=== PATIENT | female | born 1940 | race Caucasian/White ===

== ENCOUNTER → 2024-11-12 | Outpatient (CLI) | payer MEDICARE, SELFPAY ==
[2024-11-12 09:03] LABS: Collection Type, Urine Clean Catch
[2024-11-12 09:43] LABS: Alanine Aminotransferase 13 U/L (10-49); Albumin, Serum 4.3 gm/dL (3.4-4.8); Albumin/Globulin Ratio 1.5 (1.2-2.2); Alkaline Phosphatase 109 U/L (46-116); Anion Gap 5 (7-16); Aspartate Amino Transferase 26 U/L (0-34); BUN/Creatinine Ratio 18 Ratio (12-20); Bilirubin,Total 0.8 mg/dL (0.3-1.2); Blood Urea Nitrogen 11 mg/dL (9-23); Calcium 9.8 mg/dL (8.3-10.6); Calcium (Corrected) 9.8 mg/dL (8.5-10.1); Carbon Dioxide 27.1 mMol/L (20.0-31.0); Cardiac Risk Estimate 2.1 RATIO (3.7-5.6); Chloride 101 mMol/L (98-107); Cholesterol 105 mg/dL (132-200); Creatinine (Component) 0.6 mg/dL (0.6-1.3); Globulin 2.8 gm/dL (2.3-3.5); Glucose 131 mg/dL (74-106); HDL Cholesterol 49 mg/dL (40-60); LDL Cholesterol,Calculated 38 mg/dL (0-130); Osmolality,Calculated 267 (275-295); Potassium 4.6 mMol/L (3.4-5.1); Sodium 133 mMol/L (136-145); Total Protein 7.1 gm/dL (5.7-8.2); Triglycerides 88 mg/dL (30-150); eGFR > 60 See Note
[2024-11-12 10:35] LABS: Bilirubin,Urine Negative (Negative); Blood,Urine Negative (Negative); Clarity,Urine Clear (Clear/Hazy); Color,Urine Lt-Yellow (Lt Yel-Yel); Glucose, Urine Negative (Negative); Ketones,Urine Negative (Negative); Nitrite,Urine Negative (Negative); PH,Urine 6.5 (5.0-7.0); Protein,Urine Negative (Neg - Trace); RBC,Urine 1 /hpf (0-3); Specific Gravity,Urine 1.011 (1.001-1.035); Squamous Epithelial Cell,Urine 6 /hpf (0-5); Urobilinogen,Urine Negative mg/dL (0.0-1.0); WBC,Urine 1 /hpf (0-5)
[2024-11-12 11:03] LABS: Leukocyte Esterase,Urine Negative (Negative)
== END | disposition home or self-care (01) ==
LOC: COPL 08:21
PROVIDERS: PCP Internal Medicine; Referring Provider Internal Medicine; Visit Provider Internal Medicine
DX: E78.5 Hyperlipidemia, unspecified (principal); I10 Essential (primary) hypertension
CPT/HCPCS: 36415; 80053; 80061; 81001

== ENCOUNTER → 2025-04-02 | Outpatient (CLI) | payer MEDICARE, SELFPAY ==
[2025-04-02 09:28] LABS: Collection Type, Urine Clean Catch
[2025-04-02 10:13] LABS: Basophils # (Auto) 0.1 Thou/mm3 (0.0-0.2); Basophils % (Auto) 1 % (0-2.5); Eosinophils # (Auto) 0.2 Thou/mm3 (0.0-0.5); Eosinophils % (Auto) 2 % (0-10); Hematocrit 39.4 % (36.0-46.0); Hemoglobin 13.2 g/dL (12.0-16.0); Immature Granulocytes Auto 0.05 Thou/mm3 (0.00-0.00); Lymphocytes # (Auto) 2.1 Thou/mm3 (1.0-4.8); Lymphocytes % (Auto) 25 % (10-50); Mean Corpuscular HGB Conc 33.5 g/dl (31.0-37.0); Mean Corpuscular Hemoglobin 31.5 pg (25.0-35.0); Mean Corpuscular Volume 94 fL (80-100); Monocytes # (Auto) 0.7 Thou/mm3 (0.0-0.8); Monocytes % (Auto) 9 % (0-12); Neutrophils # (Auto) 5.2 Thou/mm3 (1.8-7.7); Neutrophils % (Auto) 62 % (37-80); Nucleated Red Blood Cell # 0.00 Thou/mm3 (0.00-0.00); Nucleated Red Blood Cell % 0 /100 WBC (0); Platelet Count 287 Thou/mm3 (140-440); RDW Standard Deviation 47.2 fL (36.4-46.3); Red Blood Count 4.19 Miln/mm3 (4.00-5.20); White Blood Count 8.3 Thou/mm3 (3.6-11.0)
[2025-04-02 10:17] LABS: Bilirubin,Urine Negative (Negative); Blood,Urine Negative (Negative); Clarity,Urine Clear (Clear/Hazy); Color,Urine Lt-Yellow (Lt Yel-Yel); Glucose, Urine Negative (Negative); Hyaline Casts,Urine < 1 /hpf (0-1); Ketones,Urine Trace (Negative); Leukocyte Esterase,Urine Positive (Negative); Nitrite,Urine Negative (Negative); PH,Urine 6.5 (5.0-7.0); Protein,Urine Negative (Neg - Trace); RBC,Urine 2 /hpf (0-3); Specific Gravity,Urine 1.010 (1.001-1.035); Squamous Epithelial Cell,Urine 9 /hpf (0-5); Urobilinogen,Urine Negative mg/dL (0.0-1.0); WBC,Urine 2 /hpf (0-5)
[2025-04-02 10:26] LABS: Alanine Aminotransferase 13 U/L (10-49); Albumin, Serum 4.3 gm/dL (3.4-4.8); Albumin/Globulin Ratio 1.6 (1.2-2.2); Alkaline Phosphatase 102 U/L (46-116); Anion Gap 11 (7-16); Aspartate Amino Transferase 24 U/L (0-34); BUN/Creatinine Ratio 13 Ratio (12-20); Bilirubin,Total 0.8 mg/dL (0.3-1.2); Blood Urea Nitrogen 8 mg/dL (9-23); Calcium 10.2 mg/dL (8.3-10.6); Calcium (Corrected) 10.2 mg/dL (8.5-10.1); Carbon Dioxide 24.0 mMol/L (20.0-31.0); Cardiac Risk Estimate 2.0 RATIO (3.7-5.6); Chloride 97 mMol/L (98-107); Cholesterol 105 mg/dL (132-200); Creatinine (Component) 0.6 mg/dL (0.6-1.3); Globulin 2.7 gm/dL (2.3-3.5); Glucose 105 mg/dL (74-106); HDL Cholesterol 53 mg/dL (40-60); LDL Cholesterol,Calculated 37 mg/dL (0-130); Osmolality,Calculated 262 (275-295); Potassium 5.2 mMol/L (3.4-5.1); Sodium 132 mMol/L (136-145); Total Protein 7.0 gm/dL (5.7-8.2); Triglycerides 74 mg/dL (30-150); eGFR > 60 See Note
== END | disposition home or self-care (01) ==
LOC: COPL 09:00
PROVIDERS: PCP Internal Medicine; Referring Provider Internal Medicine; Visit Provider Internal Medicine
DX: I10 Essential (primary) hypertension (principal); E78.5 Hyperlipidemia, unspecified
CPT/HCPCS: 36415; 80053; 80061; 81001; 85025

== ENCOUNTER 2025-05-07 05:55 | Inpatient (IN) | payer MEDICARE, SELFPAY ==
[2025-05-07] VITALS (33 sets, daily range): BP systolic 146–217; BP diastolic 44–119; PULSE 32–68; RESP 10–99; TEMP 36.3–36.6; O2SAT 93–100; BMI 24.2
--- NOTE | 2025-05-07 06:05 | EKG_ITS ---
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
--- NOTE | 2025-05-07 06:33 | XR_ITS ---
EXAMINATION: AP chest single view TECHNIQUE: AP portable semiupright chest single view Date and time: May 07, 2025, 0649 hours, comparison August 24, 2018 INDICATIONS: Intermittent chest pain today. FINDINGS: Early heart failure. Mild enlargement cardiac contour, prominent vascular congestion with septal edema at the lung bases Severe osteopenia IMPRESSION: Early CHF
--- NOTE | 2025-05-07 06:33 | PD.EDRME ---
Rapid Medical Screening Exam E Arrival date/time: 05/07/25 05:55 84-year-old female with no known medical history presents to the emergency room with a chief complaint of intermittent chest tightness and bilateral lower extremity swelling I have greeted and performed a focused initial assessment of this patient. A comprehensive ED assessment and evaluation of the patient, analysis of all test results, and completion of the medical decision making process will be conducted by additional ED providers. Chief Complaint: Chest Pain Time Seen by Provider: 05/07/25 06:12 Vital signs: Vital Signs Temperature 97.5 F 05/07/25 06:21 Pulse Rate 37 L 05/07/25 06:21 Respiratory Rate 15 05/07/25 06:21 Blood Pressure 197/52 H 05/07/25 06:21 Pulse Oximetry (%) 98 05/07/25 06:21 Oxygen Delivery Method Room Air 05/07/25 06:21 Vital signs reviewed by provider: Yes
--- NOTE | 2025-05-07 07:08 | PD.EDADULT ---
ED General RME/HPI General Chief complaint: Chest Pain Stated complaint: DIZZY, WEAK, CHEST PAIN Time Seen by Provider: 05/07/25 06:12 Arrival date/time: 05/07/25 05:55 RME / HPI RME / HPI narrative: 05/07/25 05:55 Rosi is a 84 y/o female with PMHx of HTN, colon cancer (in remission, s/p partial colectomy ~12 years ago) who comes in for an evaluation of worsening dizziness and weakness for about a week. Patient reports she has never had the symptoms before and felt like she was dizzy and weak. She said she does not measure her heart rate at home, however she noticed that her heart rate felt a bit slow when she felt her pulse in her neck. She says she takes atenolol at home for blood pressure, however has not taken it for about a week as she said she felt like her symptoms would worsen. She also stopped taking her other blood pressure medicines including lisinopril, however she is on a couple more but she does not remember the names of them. She has never seen a clinical dietitian before in her life as she says she has never had a reason to. Her primary care doctor is Dr. Rizvi. She says she takes a multivitamin mostly every day. She denies any history of smoking, oral IV drug use, and does not drink. Denies any family history of heart disease including CAD or arrhythmias. She lives alone currently. Denies any recent travel. Denies any chest pain, shortness of breath, headache, however says she had a little bit of nausea earlier but that has resolved now. She says she has seen a vascular surgeon before in the past, however this was for her varicose veins but she never got operated on. She also had a cholecystectomy in the past. No other complaints at this time. Related Data Previous Rx's ?Medication ?Instructions ?Recorded acetaminophen 500 mg tablet 500 mg PO Q6H PRN pain #30 tabs 04/02/20 (Tylenol Extra Strength) cephalexin 500 mg capsule (Keflex) 500 mg PO QID #40 caps 04/02/20 Allergies Allergy/AdvReac Type Severity Reaction Status Date / Time No Known Allergies Allergy Verified 04/02/20 10:34 Review of Systems Review of Systems Narrative Review of Systems: 12 point ROS reviewed and is otherwise negative unless stated directly in the HPI ED Exam Narrative Physical exam: General: AAOx3, NAD, wearing glasses, pleasant HEENT: Moist mucous membranes, conjunctiva clear, EOMI, PERRLA, Cardiovascular: Systolic ejection murmur apprecaited in [place] radiating to carotids, S1, S2, radial pulses +2 bilat, bradycardic Pulmonary: CTAB bilat no cough, no wheezing GI: No tenderness to light or deep palpitation, no guarding, rigidity, rebound tenderness or distension Extremities: +2 pitting edema in lower extremities bilaterally, dorsalis pedis pulses +2 bilaterally Neuro: AAOx3, no focal motor or sensory deficits in the UE or LE bilat Psych: Good judgement, thought and behavior Course Quality Measures none Orders Category Date Time Status Admit to Inpatient Status Routine Admission 05/07/25 09:32 Active Patient Condition Routine Admission 05/07/25 09:31 Ordered Bedside Blood Glucose Q2H Care 05/07/25 08:25 Active EKG (ED ONLY) *Do not use* NOW Care 05/07/25 06:05 Completed Insert IV NOW Care 05/07/25 08:51 Active NPO NOW Care 05/07/25 07:10 Active Notify provider NEEDED Care 05/07/25 09:31 Active Strict Intake and Output Q1H Care 05/07/25 09:45 Ordered Strict Intake and Output Q1H Care 05/07/25 10:45 Ordered Strict Intake and Output Q1H Care 05/07/25 11:45 Ordered Strict Intake and Output Q1H Care 05/07/25 12:45 Ordered Strict Intake and Output Q1H Care 05/07/25 13:45 Ordered Strict Intake and Output Q1H Care 05/07/25 14:45 Ordered Strict Intake and Output Q1H Care 05/07/25 15:45 Ordered Strict Intake and Output Q1H Care 05/07/25 16:45 Ordered Strict Intake and Output Q1H Care 05/07/25 17:45 Ordered Strict Intake and Output Q1H Care 05/07/25 18:45 Ordered Strict Intake and Output Q1H Care 05/07/25 19:45 Ordered Strict Intake and Output Q1H Care 05/07/25 20:45 Ordered Strict Intake and Output Q1H Care 05/07/25 21:45 Ordered Strict Intake and Output Q1H Care 05/07/25 22:45 Ordered Strict Intake and Output Q1H Care 05/07/25 23:45 Ordered Strict Intake and Output Q1H Care 05/08/25 00:45 Ordered Strict Intake and Output Q1H Care 05/08/25 01:45 Ordered Strict Intake and Output Q1H Care 05/08/25 02:45 Ordered Strict Intake and Output Q1H Care 05/08/25 03:45 Ordered Strict Intake and Output Q1H Care 05/08/25 04:45 Ordered Strict Intake and Output Q1H Care 05/08/25 05:45 Ordered Strict Intake and Output Q1H Care 05/08/25 06:45 Ordered Strict Intake and Output Q1H Care 05/08/25 07:45 Ordered Strict Intake and Output Q1H Care 05/08/25 08:45 Ordered Consult to Cardiology Stat Cons 05/07/25 07:07 Ordered Consult to Box Inspector Stat Cons 05/07/25 08:56 Ordered Diet NPO (NOW) Diet 05/07/25 07:10 Active CA echo doppler complete Stat Exams 05/07/25 07:22 Taken EKG (ED Only) Stat Exams 05/07/25 06:05 Draft XR chest 1V portable Stat Exams 05/07/25 06:33 Completed B-Type Natriuretic Peptide Stat Lab 05/07/25 07:40 Completed CBC AM DRAW Lab 05/08/25 05:00 Ordered CBC AM DRAW Lab 05/09/25 05:00 Ordered CBC AM DRAW Lab 05/10/25 05:00 Ordered CBC AM DRAW Lab 05/11/25 05:00 Ordered CBC AM DRAW Lab 05/12/25 05:00 Ordered CBC AM DRAW Lab 05/13/25 05:00 Ordered CBC Stat Lab 05/07/25 07:40 Completed Comprehensive Metabolic Panel AM DRAW Lab 05/08/25 05:00 Ordered Comprehensive Metabolic Panel AM DRAW Lab 05/09/25 05:00 Ordered Comprehensive Metabolic Panel AM DRAW Lab 05/10/25 05:00 Ordered Comprehensive Metabolic Panel AM DRAW Lab 05/11/25 05:00 Ordered Comprehensive Metabolic Panel AM DRAW Lab 05/12/25 05:00 Ordered Comprehensive Metabolic Panel AM DRAW Lab 05/13/25 05:00 Ordered Comprehensive Metabolic Panel Stat Lab 05/07/25 07:40 Completed Lipid Panel Stat Lab 05/07/25 07:40 Completed Magnesium AM DRAW Lab 05/08/25 05:00 Ordered Magnesium AM DRAW Lab 05/09/25 05:00 Ordered Magnesium AM DRAW Lab 05/10/25 05:00 Ordered Magnesium AM DRAW Lab 05/11/25 05:00 Ordered Magnesium AM DRAW Lab 05/12/25 05:00 Ordered Magnesium AM DRAW Lab 05/13/25 05:00 Ordered Magnesium Stat Lab 05/07/25 07:40 Completed Partial Thromboplastin Time Stat Lab 05/07/25 07:40 Completed Partial Thromboplastin Time Stat Lab 05/07/25 10:00 Completed Phosphorous AM DRAW Lab 05/08/25 05:00 Ordered Phosphorous AM DRAW Lab 05/09/25 05:00 Ordered Phosphorous AM DRAW Lab 05/10/25 05:00 Ordered Phosphorous AM DRAW Lab 05/11/25 05:00 Ordered Phosphorous AM DRAW Lab 05/12/25 05:00 Ordered Phosphorous AM DRAW Lab 05/13/25 05:00 Ordered Prothrombin Time with INR Stat Lab 05/07/25 07:40 Completed Prothrombin Time with INR Stat Lab 05/07/25 10:00 Completed Renal Function Panel Stat Lab 05/07/25 14:00 Ordered Thyroid Stimulating Hormone Stat Lab 05/07/25 07:40 Completed Troponin I Q6H Lab 05/07/25 10:00 Completed Troponin I Q6H Lab 05/07/25 15:45 Ordered Troponin I Q6H Lab 05/07/25 21:45 Ordered Troponin I Stat Lab 05/07/25 07:40 Completed Troponin I Stat Lab 05/07/25 14:00 Ordered Urinalysis Routine Lab 05/07/25 09:35 Ordered Urinalysis, C/S if Indicated Stat Lab 05/07/25 06:33 Ordered VBG [Venous Blood Gas] Stat Lab 05/07/25 07:40 Completed ALBUTEROL RT 3ml [Proventil Rt 3ml] Med 05/07/25 08:37 Discontinued 2.5 mg INH X1 ONE Acetaminophen Tab [Tylenol Tab] Med 05/07/25 09:31 Active 650 mg PO Q6H PRN Acetaminophen Tab [Tylenol Tab] Med 05/07/25 09:31 Active 650 mg PO Q6H PRN Calcium Gluc/Ns 1000MG Ivpb [Calcium Gluc/Ns 1000mg Med 05/07/25 08:28 Discontinued Ivpb] 1,000 mg in 50 ml IV X1 Calcium Gluconate 10% Inj Med 05/07/25 08:40 Discontinued 1 gm IV X1 ONE Dextrose 50% Syr [D50w Syringe Abboject] Med 05/07/25 08:24 Discontinued 50 ml IVP X1 ONE Heparin Inj Med 05/07/25 14:00 Active 5,000 unit SC Q8HR Insulin Regular Med 05/07/25 08:24 Discontinued 5 unit IV X1 ONE Ondansetron Inj [Zofran Inj] Med 05/07/25 09:31 Active 4 mg IVP Q6H PRN Ondansetron Inj [Zofran Inj] Med 05/07/25 09:00 Discontinued 4 mg IVP X1 ONE Senna [Senokot] Med 05/07/25 09:31 Active 1 tab PO QDAY PRN hydrALAZINE INJ [Apresoline Inj] Med 05/07/25 07:07 Discontinued 5 mg IVP X1 ONE hydrALAZINE INJ [Apresoline Inj] Med 05/07/25 07:56 Discontinued 5 mg IVP X1 ONE Code Status Routine Oth 05/07/25 09:31 Ordered Oxygen Delivery PRN RT 05/07/25 09:31 Active Vital Signs Vital signs: Vital Signs Temperature 97.5 F 05/07/25 06:21 Pulse Rate 37 L 05/07/25 06:21 Respiratory Rate 15 05/07/25 06:21 Blood Pressure 197/52 H 05/07/25 06:21 Pulse Oximetry (%) 98 05/07/25 06:21 Oxygen Delivery Method Room Air 05/07/25 06:21 Discharge Plan Plan Patient Disposition: Admit Acute Care w/in Hospital Problem List Clinical Impression: Complete heart block MD Attestation MD Attestation I, Dr. Gonzalez, saw this patient did history and physical exam, discussed the initial history and physical exam, workup and management to include consulting physicians with the resident. Reviewed his note and agree. MDM Narrative [facility] hospital course (for use when minimal MDM required): 0643: Spoke with interventional cardiology, Dr. Diaz, who recommends admission for patient as pt is in complete heart block. Will make patient NPO for pacemaker evaluation. Will give 5 mg Hydralazine IV but will maintain SBP ~160 to allow for adequate perfusion. Pacers pads on at this time. 0722: Reviewed EKG from earlier which shows complete heart block. Consulted Cardiology, will have pads on patient, but not active. Will order hydralazine 5 mg IV for now decrease SBP from 190. 0832: Initiated Insulin 5 units IV with Calcium gluconate inj 1 g with D50 x1 and breathing tx x1. TSH wnl. 0932: Discussed case with cloth winder machine operator, Dr. Alonso, who agrees patient for admission. EKG Interpretation EKG #1: EKG Interpretation: Heart rate 36, QTc 515, complete heart block, no ST changes EKG #2: EKG Interpretation: Heart rate 34, QT 512, complete heart block, no ST changes Medication Administration(s) Medication Administration History Acetaminophen (Acetaminophen 325 Mg Tablet) 650 mg PO Q6H PRN PRN Reason: Fever >100.4 or pain 1-3 Stop: 06/06/25 09:30 Acetaminophen (Acetaminophen 325 Mg Tablet) 650 mg PO Q6H PRN PRN Reason: PAIN SCALE 1-3 (mild Stop: 06/06/25 09:30 Heparin Sodium (Porcine) (Heparin Sod Inj 5000 Unit/Ml Vial) 5,000 unit SC Q8HR HYACINTH Stop: 05/21/25 13:59 Ondansetron HCl (Ondansetron Inj 2 Mg/Ml Inj 2 Ml) 4 mg IVP Q6H PRN; Protocol PRN Reason: NAUSEA OR VOMITING Stop: 06/06/25 09:30 Sennosides (Senna Tablet) 1 tab PO QDAY PRN; Protocol PRN Reason: constipation Stop: 06/06/25 09:30 Discontinued Medications Albuterol (Albuterol Rt 2.5 Mg/3 Ml Nebu) 2.5 mg INH X1 ONE Stop: 05/07/25 08:38 Last Admin: 05/07/25 08:45 Dose: 2.5 mg Documented By: SUSANNAH Calcium Gluconate (Calcium Gluconate 10% Inj 1 Gm/10 Ml Vial) 1 gm IV X1 ONE Stop: 05/07/25 08:41 Last Admin: 05/07/25 08:55 Dose: 1 gm Documented By: BILLIE Dextrose (Dextrose 50%-Water Inj 50 Ml Syringe) 50 ml IVP X1 ONE Stop: 05/07/25 08:25 Last Admin: 05/07/25 08:58 Dose: 50 ml Documented By: BILLIE Hydralazine HCl (Hydralazine Inj 20 Mg/Ml Vial) 5 mg IVP X1 ONE Stop: 05/07/25 07:08 Last Admin: 05/07/25 07:20 Dose: 5 mg Documented By: JEREMIAS Hydralazine HCl (Hydralazine Inj 20 Mg/Ml Vial) 5 mg IVP X1 ONE Stop: 05/07/25 07:57 Last Admin: 05/07/25 09:02 Dose: Not Given Documented By: BILLIE Non-Admin Reason: Cancelled by Provider Hydralazine HCl (Hydralazine Inj 20 Mg/Ml Vial) 5 mg IVP X1 ONE Stop: 05/07/25 10:24 Calcium Gluconate/Sodium Chloride (Calcium Gluc/Ns 1000mg Ivpb) 1,000 mg in 50 mls @ 50 mls/hr IV X1 ONE Stop: 05/07/25 09:27 Last Admin: 05/07/25 08:42 Dose: Not Given Documented By: BILLIE Non-Admin Reason: Cancelled by Provider Insulin Human Regular (Insulin Hum Regular 1 Unit/0.01 Ml (Per Unit)) 5 unit IV X1 ONE Stop: 05/07/25 08:25 Last Admin: 05/07/25 09:01 Dose: 5 unit Documented By: BILLIE Co-signed By: JUANA Ondansetron HCl (Ondansetron Inj 2 Mg/Ml Inj 2 Ml) 4 mg IVP X1 ONE; Protocol Stop: 05/07/25 09:01 Last Admin: 05/07/25 09:06 Dose: 4 mg Documented By: BILLIE Sodium Polystyrene Sulfonate (Sod Polystyrene Sulfon Susp 15 Gm/60 Ml Btl) 60 gm PO X1 ONE Stop: 05/07/25 09:44 Last Admin: 05/07/25 10:10 Dose: 60 gm Documented By: BILLIE Consultations/Discussions re: Management Consult #1: Date/time: 05/07/25 7:26 am Physician, specialty, service, details: 0643: Spoke with interventional cardiology, Dr. Diaz, who recommends admission for patient as pt is in complete heart block. Will make patient NPO for pacemaker evaluation. Will give 5 mg Hydralazine IV but will maintain SBP ~160 to allow for adequate perfusion. Pacers pads on at this time. Consult #2: Date/time: 05/07/25 11:20 am Physician, specialty, service, details: 0932: Discussed case with cloth winder machine operator, Dr. Alonso, who agrees patient for admission. Diagnosis Diagnoses ruled out and/or further discussions: Complete Heart Block
[2025-05-07] MEDS: hydrALAZINE INJ 20 MG/ML VIAL 5 MG IVP (07:20)
[2025-05-07 07:48] LABS: Base Excess, Venous -5 (-3-3); O2 Saturation, Venous 65 % (96-97); PCO2, Venous 29 mmHg (36-56); PO2, Venous 31 mmHg (15-58); pH, Venous 7.42 (7.33-7.66)
[2025-05-07 07:50] LABS: Basophils # (Auto) 0.0 Thou/mm3 (0.0-0.2); Basophils % (Auto) 0 % (0-2.5); Eosinophils # (Auto) 0.1 Thou/mm3 (0.0-0.5); Eosinophils % (Auto) 1 % (0-10); Hematocrit 36.4 % (36.0-46.0); Hemoglobin 12.3 g/dL (12.0-16.0); Immature Granulocytes Auto 0.05 Thou/mm3 (0.00-0.00); Lymphocytes # (Auto) 1.6 Thou/mm3 (1.0-4.8); Lymphocytes % (Auto) 13 % (10-50); Mean Corpuscular HGB Conc 33.8 g/dl (31.0-37.0); Mean Corpuscular Hemoglobin 31.3 pg (25.0-35.0); Mean Corpuscular Volume 93 fL (80-100); Monocytes # (Auto) 0.8 Thou/mm3 (0.0-0.8); Monocytes % (Auto) 6 % (0-12); Neutrophils # (Auto) 9.5 Thou/mm3 (1.8-7.7); Neutrophils % (Auto) 79 % (37-80); Nucleated Red Blood Cell # 0.00 Thou/mm3 (0.00-0.00); Nucleated Red Blood Cell % 0 /100 WBC (0); Platelet Count 279 Thou/mm3 (140-440); RDW Standard Deviation 48.2 fL (36.4-46.3); Red Blood Count 3.93 Miln/mm3 (4.00-5.20); White Blood Count 12.0 Thou/mm3 (3.6-11.0)
[2025-05-07 08:20] LABS: Alanine Aminotransferase 22 U/L (10-49); Albumin, Serum 4.2 gm/dL (3.4-4.8); Albumin/Globulin Ratio 1.5 (1.2-2.2); Alkaline Phosphatase 109 U/L (46-116); Anion Gap 12 (7-16); Aspartate Amino Transferase 28 U/L (0-34); B-Type Natriuretic Peptide 889 pg/mL (0-100); BUN/Creatinine Ratio 13 Ratio (12-20); Bilirubin,Total 0.7 mg/dL (0.3-1.2); Blood Urea Nitrogen 13 mg/dL (9-23); Calcium 10.0 mg/dL (8.3-10.6); Calcium (Corrected) 10.0 mg/dL (8.5-10.1); Carbon Dioxide 20.5 mMol/L (20.0-31.0); Chloride 97 mMol/L (98-107); Creatinine (Component) 1.0 mg/dL (0.6-1.3); Estimated Creatinine Clearance 32.7 mL/min (>60); Globulin 2.8 gm/dL (2.3-3.5); Glucose 138 mg/dL (74-106); Magnesium 2.0 mg/dL (1.6-2.6); Osmolality,Calculated 261 (275-295); Sodium 129 mMol/L (136-145); Total Protein 7.0 gm/dL (5.7-8.2); eGFR 56 See Note
[2025-05-07 08:23] LABS: Potassium 6.1 mMol/L (3.4-5.1); Troponin I 0.051 ng/mL (0.0-0.045)
[2025-05-07] MEDS: ALBUTEROL RT 2.5 MG/3 ML NEBU INH (08:45)
[2025-05-07 08:47] LABS: INR 1.0 (0.9-1.3); Partial Thromboplastin Time 29.3 Seconds (22.0-36.0); Prothrombin Time 10.9 Seconds (9.0-12.2)
--- NOTE | 2025-05-07 08:47 | PD.RESPRO ---
Documentation for date of: 05/07/25 Subjective Subjective Interval history: Patient is an 84 year old female with PMH of diabetes (no meds), HTN, HLD, colon cancer (in remission, s/p partial colectomy 12 years ago) who presents with bradycardia for the past week. Associated with episodes of lightheadedness but denies fall or LOC. Worsening shortness of breath on exertion as well with chest pressure (started today), resolve a few minutes after rest. This prompted her to come to the ED. Also endorses decreased appetite for the past week. No sick contacts. At this time, denies any chest pain, shortness of breath, skipped beats. Denies personal history of cardiac diseases, COPD, asthma, [place], or stroke. Prescribed atenolol 50 mg 1.5 tablets daily but has not been taking for the past week due to low HR. Has been taking other medications daily. Dr. Rizvi is her PCP, does not have a awning craftsperson. Bilateral lower extremity (L>R) for the past 2 years, saw a vascular surgeon who attributed it to varicose veins, no procedure done. On admission, BP 197/52, HR 37, 98% RA WBC 12.0, Hgb 12.3, platelets 279. VBG pH 7.42, pCO2 29, pO2 31. Sodium 129, K 6.1, Cl 97, bicarb 20.5, BUN 13, Cr 1.0. Trop 0.05, BNP 889. EKG showed complete heart block HR 3.4. CXR shows early CHF. Given hydralazine 5 mg x1, insulin 5 units IV with Calcium gluconate IV 1 g with D50 x1. Hold albuterol for now as has beta blocking properties. Cardiology consulted for complete heart block, symptomatic bradycardia. NPO in anticipation for potential pacemaker placement later today. Past Medical History: as above Family History: No known family history of heart disease, [place], or stroke. Surgical History: Partial colectomy, cholecystectomy. Social History: Denies history of smoking, denies current alcohol use, denies recreational drug use Current Medications: atenolol 50 mg 1.5 tablets daily, lisinopril 20 mg daily, chlorthalidone 25 mg daily, simvastatin 40 mg daily, alendronate 35 mg daily per pharmacy review Allergies: No known drug allergies Exam Vital Signs Temp Pulse Resp BP Pulse Ox O2 Del Method 97.5 F 33 L 20 191/72 H 100 Room Air 05/07/25 06:21 05/07/25 08:45 05/07/25 06:42 05/07/25 07:20 05/07/25 06:42 05/07/25 06:21 Narrative Exam Physical Exam General: Awake and in no acute distress. Conversational and non-toxic appearing. Pleasant elderly woman. Thin. HEENT: Normocephalic, atraumatic, mucous membranes moist. Heart: Regular rate and rhythm, normal S1 and S2, no murmurs. Lungs: Clear to auscultation with no wheezing or crackles. Abdomen: Soft, nondistended, nontender, positive bowel sounds. No guarding or rebound tenderness. Neurologic: Alert and oriented x3, no gross neurological deficit, and patient able to move all 4 extremities. Extremities: No edema. Skin: No rash or ecchymoses. Objective Labs 05/07/25 07:40 05/07/25 07:40 Labs: Laboratory Results - last 24 hr 05/07/25 07:40 WBC 12.0 H RBC 3.93 L Hgb 12.3 Hct 36.4 MCV 93 MCH 31.3 MCHC 33.8 RDW Std Deviation 48.2 H Plt Count 279 Neut % (Auto) 79 Lymph % (Auto) 13 [place] % (Auto) 6 Eos % (Auto) 1 Baso % (Auto) 0 Neut # (Auto) 9.5 H Lymph # (Auto) 1.6 [place] # (Auto) 0.8 Eos # (Auto) 0.1 Baso # (Auto) 0.0 Immature Gran # (Auto) 0.05 H Absolute Nucleated RBC 0.00 Immature Gran % 0 Nucleated RBC % 0 VBG pH 7.42 VBG pCO2 29 L VBG pO2 31 VBG O2 Sat (Yudy) 65 L VBG Base Excess -5 L Sodium 129 L Potassium 6.1 H* Chloride 97 L Carbon Dioxide 20.5 Anion Gap 12 BUN 13 Creatinine 1.0 Estim Creat Clear Calc 32.7 L eGFR 56 L BUN/Creatinine Ratio 13 Glucose 138 H Calculated Osmolality 261 L Calcium 10.0 Corrected Calcium 10.0 Magnesium 2.0 Total Bilirubin 0.7 AST 28 ALT 22 Alkaline Phosphatase 109 Troponin I 0.051 H* B-Natriuretic Peptide 889 H* Total Protein 7.0 Albumin 4.2 Globulin 2.8 Albumin/Globulin Ratio 1.5 ABG Interpretation ABG results: 05/07/25 07:40 VBG pH 7.42 VBG pCO2 29 L VBG pO2 31 VBG Base Excess -5 L Quality Measures Quality Measures none
[2025-05-07] MEDS: CALCIUM GLUCONATE 10% INJ 1 GM/10 ML VIAL IV (08:55)
[2025-05-07] MEDS: DEXTROSE 50%-WATER INJ 50 ML SYRINGE IVP (08:58)
[2025-05-07] MEDS: INSULIN HUM REGULAR 1 UNIT/0.01 ML (PER UNIT) 5 UNIT IV (09:01)
[2025-05-07] MEDS: ONDANSETRON INJ 2 MG/ML INJ 2 ML 4 MG IVP (09:06)
--- NOTE | 2025-05-07 10:02 | ESHP_ITS ---
<Statement entered by Ed Dietrich MD - 05/07/25 20:56> Patient seen and examined at bedside. I discussed and supervised with the recruiting internship physician who took care of this patient. I personally saw and examined the patient. I agree with most of the assessment and plan. Plan of care discussed with attending Dr. Alonso. Ed Dietrich MD PGY-2 Documentation for date of: 05/07/25 HPI History of Present Illness History of present illness: 84-year-old female with a medical history significant for hypertension, hyperlipidemia, colon cancer (in remission, status post partial colectomy approximately 12 years ago) presented to the ED on 05/07/2025 with worsening dizziness and intermittent, non-radiating dull chest pressure in the center of the chest. The dizziness started about a week ago upon getting out of bed in the morning, accompanied by sweating and heart palpitations. She noted that lying down helped relieve the dizziness. Patient also reports intermittent, dull chest pain that does not radiate, as well as nausea this morning. She denies vomiting, dysuria, blood in the stool, abdominal pain, fever, or chills. In addition, the patient endorses orthopnea, new right lower extremity edema (noting that left lower extremity edema is baseline due to her chronic knee issues), and shortness of breath with walking. She mentions that the dizziness worsens with standing or walking but improves when sitting or lying down. The patient has experienced a decrease in appetite but has continued to drink water. She denies headache or vertigo. Patient states that although she does not have access to a blood pressure cuff or heart rate monitor at home, she has noticed a sensation of a [id number] heart rate. She also reports discontinuing her atenolol and lisinopril about a week ago, though she has continued taking simvastatin. The patient denies any recent illness. Patient admitted to the ICU for complete heart block. Dr. Diaz was consulted. ED Course: -Initial vitals were: BP 165/58, HR 40, RR 15, T 97.4F, O2 sat 98% on room air. -Labs significant for: WBC 12.0, RBC 3.93, PTT 21.8, VBG pH 7.42, pCO2 29, pO2 31, O2 sat 65%; sodium 129, potassium 6.1, chloride 97, eGFR 56, glucose 138, troponin 0.051, BNP 889. -Imaging included: CXR: early CHF, EKG: sinus rhythm with high grade AV block. -In the ED, patient was given: hydralazine 5mg IV x1, albuterol 2.5 mg x1, calcium gluconate 1 gram IV x1, dextrose 50 mg IVP x1, Insulin 5U x1, ondansetron 4 mg IV x1, sodium polystyrene sulfate 60 mg PO x1. Past Medical History: as above Past Surgical History: Partial colectomy, cholecystectomy (1992). Family History: No known family history of heart disease, MD, or stroke. 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 Allergies: No known drug allergies. Review of Systems Review of Systems Narrative Review of Systems: All 13 review of systems are negative except as listed above in the HPI. Exam Vital Signs Temp Pulse Resp BP Pulse Ox O2 Del Method 97.4 F 40 L 15 165/58 H 100 Room Air 05/07/25 08:44 05/07/25 09:31 05/07/25 09:31 05/07/25 09:31 05/07/25 09:31 05/07/25 08:44 Narrative Exam Physical Exam General: Awake and in no acute distress. Conversational and non-toxic appearing. Head: Normocephalic, atraumatic. Eyes: Pupils equally round and reactive to light. Anicteric. Mouth/Throat: Moist mucous membranes, Heart: Systolic ejection murmur heard at right upper sternal border, at 2nd ICS, radiating to carotids, bradycardic. No JVD. Lungs: Clear to auscultation with no wheezing or crackles. Non-labored respirations, symmetric chest rise, no use of accessory muscles. Abdomen: Soft, nontender. No guarding or rebound tenderness. Neurologic: Alert and oriented x4, no gross neurological deficit, and patient able to move all 4 extremities. Extremities: +2 pitting edema in lower extremities bilaterally, dorsalis pedis pulses +2 bilaterally. No clubbing or cyanosis. No mottling. Psychiatric: Cooperative, appropriate mood and affect Skin: No rash. Results: Labs 05/09/25 05:00 05/09/25 05:00 Labs: Short CBC 05/07/25 Range/Units 07:40 WBC 12.0 H (3.6-11.0) Thou/mm3 Hgb 12.3 (12.0-16.0) g/dL Hct 36.4 (36.0-46.0) % Plt Count 279 (140-440) Thou/mm3 BMP 05/07/25 07:40 Sodium 129 L Potassium 6.1 H* Chloride 97 L Carbon Dioxide 20.5 BUN 13 Creatinine 1.0 Glucose 138 H Calcium 10.0 Cardiac Enzymes 05/07/25 Range/Units 07:40 Troponin I 0.051 H* (0.0-0.045) ng/mL Liver Function 05/07/25 Range/Units 07:40 Total Bilirubin 0.7 (0.3-1.2) mg/dL AST 28 (0-34) U/L ALT 22 (10-49) U/L Alkaline Phosphatase 109 (46-116) U/L Albumin 4.2 (3.4-4.8) gm/dL ABG Interpretation ABG results: 05/07/25 07:40 VBG pH 7.42 VBG pCO2 29 L VBG pO2 31 VBG Base Excess -5 L Quality Measures Quality Measures none Advance care planning discussed with:: patient Medications Home Medications and Allergies Home Medications ?Medication ?Instructions ?Recorded ?Confirmed ?Type alendronate 35 mg tablet 35 mg PO QAM 05/07/25 History simvastatin 40 mg tablet 40 mg PO QDAY 05/07/2505/07 History Allergies Allergy/AdvReac Type Severity Reaction Status Date / Time No Known Allergies Allergy Verified 04/02/20 10:34 Visit Medications Acetaminophen (Acetaminophen 325 Mg Tablet) 650 mg PO Q6H PRN PRN Reason: Fever >100.4 or pain 1-3 Stop: 06/06/25 09:30 Acetaminophen (Acetaminophen 325 Mg Tablet) 650 mg PO Q6H PRN PRN Reason: PAIN SCALE 1-3 (mild Stop: 06/06/25 09:30 Heparin Sodium (Porcine) (Heparin Sod Inj 5000 Unit/Ml Vial) 5,000 unit SC Q8HR HYACINTH Stop: 05/21/25 13:59 Ondansetron HCl (Ondansetron Inj 2 Mg/Ml Inj 2 Ml) 4 mg IVP Q6H PRN; Protocol PRN Reason: NAUSEA OR VOMITING Stop: 06/06/25 09:30 Sennosides (Senna Tablet) 1 tab PO QDAY PRN; Protocol PRN Reason: constipation Stop: 06/06/25 09:30 Discontinued Medications Albuterol (Albuterol Rt 2.5 Mg/3 Ml Nebu) 2.5 mg INH X1 ONE Stop: 05/07/25 08:38 Last Admin: 05/07/25 08:45 Dose: 2.5 mg Calcium Gluconate (Calcium Gluconate 10% Inj 1 Gm/10 Ml Vial) 1 gm IV X1 ONE Stop: 05/07/25 08:41 Last Admin: 05/07/25 08:55 Dose: 1 gm Dextrose (Dextrose 50%-Water Inj 50 Ml Syringe) 50 ml IVP X1 ONE Stop: 05/07/25 08:25 Last Admin: 05/07/25 08:58 Dose: 50 ml Hydralazine HCl (Hydralazine Inj 20 Mg/Ml Vial) 5 mg IVP X1 ONE Stop: 05/07/25 07:08 Last Admin: 05/07/25 07:20 Dose: 5 mg Hydralazine HCl (Hydralazine Inj 20 Mg/Ml Vial) 5 mg IVP X1 ONE Stop: 05/07/25 07:57 Last Admin: 05/07/25 09:02 Dose: Not Given Calcium Gluconate/Sodium Chloride (Calcium Gluc/Ns 1000mg Ivpb) 1,000 mg in 50 mls @ 50 mls/hr IV X1 ONE Stop: 05/07/25 09:27 Last Admin: 05/07/25 08:42 Dose: Not Given Insulin Human Regular (Insulin Hum Regular 1 Unit/0.01 Ml (Per Unit)) 5 unit IV X1 ONE Stop: 05/07/25 08:25 Last Admin: 05/07/25 09:01 Dose: 5 unit Ondansetron HCl (Ondansetron Inj 2 Mg/Ml Inj 2 Ml) 4 mg IVP X1 ONE; Protocol Stop: 05/07/25 09:01 Last Admin: 05/07/25 09:06 Dose: 4 mg Sodium Polystyrene Sulfonate (Sod Polystyrene Sulfon Susp 15 Gm/60 Ml Btl) 60 gm PO X1 ONE Stop: 05/07/25 09:44 Assessment & Plan Plan 84-year-old female with a history of hypertension, hyperlipidemia, and colon cancer (in remission) presents with symptomatic bradycardia of one week's duration, found to have complete heart block on EKG, and admitted to the ICU for potential transcutaneous pacing. Neurology #Presyncope DDx: hyperkalemia vs bradyarrhythmias vs aortic stenosis vs myocardial ischemia. Diagnostic Test: - Patient reports of dizziness (no vertigo) for one week. - EKG: sinus rhythm with high grade AV block. - On admission, heart rate of 37 bpm. Treatment Plan: - Plan for pacemaker on 05/08. - Cardiology consulted, appreciate recommendations. Cardiovascular #Complete heart block #Symptomatic bradycardia #Hyperkalemia DDx: sick sinus snydrome vs AV block vs medications vs hyperkalemia. Diagnostic Test: - EKG: sinus rhythm with high grade AV block. - Home medication atenolol 75 mg PO daily. Although patient reports that she has not taken it for the past week. - Heart rate of 37 bpm on admission. - Potassium level of 6.1 on admission. Treatment already given: - Kayexalate 60 gram PO x1 to help lower potassium. - Lactulose 20 gram PO x1 to promote potassium excretion via the GI tract. - Albuterol to promote potassium shift into cells. - Calcium gluconate 1 gram x1 and Insulin 5 units x1 given in the ED. Treatment Plan: - NPO aftermight for pacemaker placement on 05/08 to address high-grade AV block and symptomatic bradycardia. - Hold atenolol. - Hold subcutaenous heparin night before procedure and until 1 day after procedure. - If patient becomes hemodynamically unstable then can put pacer pads, 70 mV. - Can use dopamine drip if patient becomes hypotensive. - Cardiology is following. - Monitor potassium levels. Keep potassium >4 and magnesium >2. - Continue cardiac monitoring. - Systolic heart murmur heard on the right upper sternal border at the 2nd intercostal space, likely aortic stenosis. Echo pending. #Troponemia DDx: NSTEMI type II vs STEMI vs unstable angina vs heart failure. Diagnostic Test: - Troponin: 0.051 --> 0.111 --> 0.260 --> 0.256. - CXR: early CHR. Treatment Plan: - Trend troponin until downtrend. #Hypertensive emergency Diagnostic Test: - BP 197/52 on admission. - LEXI: Cr 1.0. Treatment Plan: - Keep systolic blood pressure less than 170. - IV hydralazine as needed for SBP > 180 or if patient is symptomatic. #Early chronic heart failure DDx: acute MD vs unstable angina vs hypertension related heart disease. Diagnostic Test: - CXR: early CHF. - Bilateral 2+ pitting edema of lower extremities. - BNP 889 on admission. Treatment Plan: - Furosemide 40 mg IV x1. - Fluid restriction 1200 mL/day. - Echo pending. - If any signs of hypoxia or respiratory distress then oxygen therapy may be needed. Respiratory #no active problems GI and F/E/N #no active problems Renal #Hyponatremia DDx: heart failure vs diuretics vs 3rd spacing Diagnostic Test: Treatment Plan: - Strict I&Os. - Hold diuretics. - Fluid restriction 1200 mL/hr. #Acute kidney injury Diagnostic Test - Baseline Cr 0.6-0.7 - Admission Cr 1.0. Treatment Plan: - Daily renal panel to trend BUN, Cr, and electrolytes. - Avoid nephrotoxins. - Renally dose meds as appropriate. - Strict I&Os, monitor urine output closely. - Monitor for signs of volume overload or uremic symptoms. Heme #Leukocytosis DDx: infection vs medications vs stress response. Diagnostic Test: - WBC 12.0 on admission. - TSH 1.54. Treatment Plan: - Urinalysis pending. - Daily CBC. Endo #no active problems ID #no active problems Health Maintenance: DVT prophylaxis: heparin 5000 subcutaneous, hold night before pacemaker procedure and 1 day after procedure. GI prophylaxis: none Diet: cardiac diet, NPO after midnight Wen: none Lines: Peripherals Drips: none Vent: none CODE STATUS: DNR Patient discussed with my senior resident Dr Dietrich and attending, Dr. Alonso. Patrick Hung DO, PGY 1 Attending Provider Attestation/Addendum Patient seen and examined with the above resident, Patrick Hung DO. I agree with the findings, assessment, and plan of care as documented except for any differences below. Patient with CHB, no evidence of definite infarction. Component of CHF now from bradyarrythmia. Echo to be done to assess systolic function. Also with hypertensive emergency with LEXI as possible end organ damage. Hydralazine in ED and adequate to bring to safer range. No BB use recently, no heidy for glucagon or calcium. Hyperkalemia being corrected. If unable to improve heart block in next 24 hours, plan for PPM placement. Kayaxelate and lasix will drop K in coming hours, downtrending this afternoon. Patient counseled at bedside, plan of care discussed with interventional cardiology. Total critical care: I personally spent 35 minutes for review of physiologic parameters, directing plan of care, counseling patient at the bedside, and coordination of care with other specialists. This is exclusive of time spent teaching housestaff or performing any separate billable procedures. Patient remains at significant for further morbidity and mortality warranting close monitoring and care only available in the ICU. Critical care services required for hyperkalemia, acute renal failure, hypertensive emergency, and complete heart block with acute CHF.
[2025-05-07] MEDS: SOD POLYSTYRENE SULFON SUSP 15 GM/60 ML BTL 60 GM PO (10:10)
[2025-05-07 10:30] LABS: INR 1.1 (0.9-1.3); Partial Thromboplastin Time 21.8 Seconds (22.0-36.0); Prothrombin Time 11.9 Seconds (9.0-12.2)
[2025-05-07 10:40] LABS: Thyroid Stimulating Hormone 1.54 uIU/mL (0.55-4.78)
[2025-05-07 10:55] LABS: Troponin I 0.111 ng/mL (0.0-0.045)
[2025-05-07 10:59] LABS: Cardiac Risk Estimate 2.0 RATIO (3.7-5.6); Cholesterol 106 mg/dL (132-200); HDL Cholesterol 54 mg/dL (40-60); LDL Cholesterol,Calculated 32 mg/dL (0-130); Thyroid Stimulating Hormone 2.35 uIU/mL (0.55-4.78); Triglycerides 98 mg/dL (30-150)
--- NOTE | 2025-05-07 12:09 | PD.RESCONSUL ---
HPI Data of Consult Requesting Physician: León Alonso MD Admitting Provider: León Alonso MD Attending Provider: León Alonso MD Primary Care Provider: Otilio Rizvi MD Consult Narrative History of present illness: Patient is an 84 year old female with PMH of diabetes (no meds), HTN, HLD, colon cancer (in remission, s/p partial colectomy 12 years ago) who presents with bradycardia for the past week. Associated with episodes of lightheadedness but denies fall or LOC. Worsening shortness of breath on exertion as well with chest pressure (started today), resolve a few minutes after rest. This prompted her to come to the ED. Also endorses decreased appetite for the past week. No sick contacts. At this time, denies any chest pain, shortness of breath, skipped beats. Denies personal history of cardiac diseases, COPD, asthma, AL, or stroke. Prescribed atenolol 50 mg 1.5 tablets daily but has not been taking for the past week due to low HR. Has been taking other medications daily. Dr. Rizvi is her PCP, does not have a environmental planner. Bilateral lower extremity (L>R) for the past 2 years, saw a vascular surgeon who attributed it to varicose veins, no procedure done. On admission, BP 197/52, HR 37, 98% RA WBC 12.0, Hgb 12.3, platelets 279. VBG pH 7.42, pCO2 29, pO2 31. Sodium 129, K 6.1, Cl 97, bicarb 20.5, BUN 13, Cr 1.0. Trop 0.05, BNP 889. EKG showed complete heart block HR 3.4. CXR shows early CHF. Given hydralazine 5 mg x1, insulin 5 units IV with Calcium gluconate IV 1 g with D50 x1. Hold albuterol for now as has beta blocking properties. Cardiology consulted for complete heart block, symptomatic bradycardia. NPO in anticipation for potential pacemaker placement later today. Past Medical History: as above Family History: No known family history of heart disease, AL, or stroke. Surgical History: Partial colectomy, cholecystectomy. Social History: Denies history of smoking, denies current alcohol use, denies recreational drug use Current Medications: atenolol 50 mg 1.5 tablets daily, lisinopril 20 mg daily, chlorthalidone 25 mg daily, simvastatin 40 mg daily, alendronate 35 mg daily per pharmacy review Allergies: No known drug allergies cc:: cc: León Alonso MD Exam Vital Signs Temp Pulse Resp BP Pulse Ox O2 Del Method 97.9 F 39 L 17 147/49 H 100 Room Air 05/07/25 10:58 05/07/25 10:58 05/07/25 10:58 05/07/25 10:58 05/07/25 10:58 05/07/25 10:58 Narrative Exam Physical Exam General: Awake and in no acute distress. Conversational and non-toxic appearing. Pleasant elderly woman. Thin. HEENT: Normocephalic, atraumatic, mucous membranes moist. Heart: Bradycardic. Regular rate and rhythm, normal S1 and S2, no murmurs appreciated. Lungs: Clear to auscultation with no wheezing or crackles. Abdomen: Soft, nondistended, nontender, positive bowel sounds. No guarding or rebound tenderness. Neurologic: Alert and oriented x3, no gross neurological deficit, and patient able to move all 4 extremities. Extremities: 2+ lower extremity edema bilaterally L>R. Slightly cool extremities but pulses intact. Skin: No rash or ecchymoses. Results Labs 05/08/25 04:35 05/08/25 04:35 Labs: Short CBC 05/07/25 Range/Units 07:40 WBC 12.0 H (3.6-11.0) Thou/mm3 Hgb 12.3 (12.0-16.0) g/dL Hct 36.4 (36.0-46.0) % Plt Count 279 (140-440) Thou/mm3 [facility] 05/07/25 07:40 Sodium 129 L Potassium 6.1 H* Chloride 97 L Carbon Dioxide 20.5 BUN 13 Creatinine 1.0 Glucose 138 H Calcium 10.0 Cardiac Enzymes 05/07/25 05/07/25 Range/Units 07:40 10:00 Troponin I 0.051 H* 0.111 H* (0.0-0.045) ng/mL Liver Function 05/07/25 Range/Units 07:40 Total Bilirubin 0.7 (0.3-1.2) mg/dL AST 28 (0-34) U/L ALT 22 (10-49) U/L Alkaline Phosphatase 109 (46-116) U/L Albumin 4.2 (3.4-4.8) gm/dL ABG Interpretation ABG results: 05/07/25 07:40 VBG pH 7.42 VBG pCO2 29 L VBG pO2 31 VBG Base Excess -5 L Quality Measures Quality Measures none Advance care planning discussed with:: patient Medications Home Medications and Allergies Home Medications ?Medication ?Instructions ?Recorded ?Confirmed ?Type alendronate 35 mg tablet 35 mg PO QAM 05/07/25 05/07/25 History atenolol 50 mg tablet 75 mg PO QDAY 05/07/25 05/07/25 History cephalexin 500 mg capsule 500 mg PO QID 05/07/25 05/07/25 History chlorthalidone 25 mg tablet 25 mg PO .qac 05/07/25 05/07/25 History lisinopril 20 mg tablet 20 mg PO BID 05/07/25 05/07/25 History simvastatin 40 mg tablet 40 mg PO QDAY 05/07/25 05/07/25 History Allergies Allergy/AdvReac Type Severity Reaction Status Date / Time No Known Allergies Allergy Verified 04/02/20 10:34 Visit Medications Acetaminophen (Acetaminophen 325 Mg Tablet) 650 mg PO Q6H PRN PRN Reason: Fever >100.4 or pain 1-3 Stop: 06/06/25 09:30 Acetaminophen (Acetaminophen 325 Mg Tablet) 650 mg PO Q6H PRN PRN Reason: PAIN SCALE 1-3 (mild Stop: 06/06/25 09:30 Heparin Sodium (Porcine) (Heparin Sod Inj 5000 Unit/Ml Vial) 5,000 unit SC Q8HR HYACINTH Stop: 05/21/25 13:59 Ondansetron HCl (Ondansetron Inj 2 Mg/Ml Inj 2 Ml) 4 mg IVP Q6H PRN; Protocol PRN Reason: NAUSEA OR VOMITING Stop: 06/06/25 09:30 Sennosides (Senna Tablet) 1 tab PO QDAY PRN; Protocol PRN Reason: constipation Stop: 06/06/25 09:30 Discontinued Medications Albuterol (Albuterol Rt 2.5 Mg/3 Ml Nebu) 2.5 mg INH X1 ONE Stop: 05/07/25 08:38 Last Admin: 05/07/25 08:45 Dose: 2.5 mg Calcium Gluconate (Calcium Gluconate 10% Inj 1 Gm/10 Ml Vial) 1 gm IV X1 ONE Stop: 05/07/25 08:41 Last Admin: 05/07/25 08:55 Dose: 1 gm Dextrose (Dextrose 50%-Water Inj 50 Ml Syringe) 50 ml IVP X1 ONE Stop: 05/07/25 08:25 Last Admin: 05/07/25 08:58 Dose: 50 ml Hydralazine HCl (Hydralazine Inj 20 Mg/Ml Vial) 5 mg IVP X1 ONE Stop: 05/07/25 07:08 Last Admin: 05/07/25 07:20 Dose: 5 mg Hydralazine HCl (Hydralazine Inj 20 Mg/Ml Vial) 5 mg IVP X1 ONE Stop: 05/07/25 07:57 Last Admin: 05/07/25 09:02 Dose: Not Given Hydralazine HCl (Hydralazine Inj 20 Mg/Ml Vial) 5 mg IVP X1 ONE Stop: 05/07/25 10:24 Calcium Gluconate/Sodium Chloride (Calcium Gluc/Ns 1000mg Ivpb) 1,000 mg in 50 mls @ 50 mls/hr IV X1 ONE Stop: 05/07/25 09:27 Last Admin: 05/07/25 08:42 Dose: Not Given Insulin Human Regular (Insulin Hum Regular 1 Unit/0.01 Ml (Per Unit)) 5 unit IV X1 ONE Stop: 05/07/25 08:25 Last Admin: 05/07/25 09:01 Dose: 5 unit Ondansetron HCl (Ondansetron Inj 2 Mg/Ml Inj 2 Ml) 4 mg IVP X1 ONE; Protocol Stop: 05/07/25 09:01 Last Admin: 05/07/25 09:06 Dose: 4 mg Sodium Polystyrene Sulfonate (Sod Polystyrene Sulfon Susp 15 Gm/60 Ml Btl) 60 gm PO X1 ONE Stop: 05/07/25 09:44 Last Admin: 05/07/25 10:10 Dose: 60 gm Assessment & Plan Plan Patient is an 84 year old female with PMH of diabetes (no meds), HTN, HLD, colon cancer (in remission, s/p partial colectomy 12 years ago) who presents with symptomatic bradycardia for the past week, found to have complete heart block on EKG, admitted to ICU for possible transcutaneous pacing. #Complete heart block #Symptomatic bradycardia #Hyperkalemia #Elevated troponins # ? CHF Presented with low HR in 30s at home, with associated shortness of breath and lightheadedness. Patient denies any chest pain or chest pressure and other cardiac events except for the dizziness as well as fatigue and overall weakness. Discussed with the patient and patient apparently was taking atenolol until last week and then she stopped it completely because she noticed her HR was low, and she is very sure of that. She just started her medications for cholesterol 2 days ago. Also has had chronic bilateral lower extremity swelling for the past 2 years, attributed to varicose veins per vascular surgeon years ago. Patient is hemodynamically stable even though she is in complete heart block. EKG reviewed and shows complete heart block with a ventricular escape rate of 35-40 bpm. No evidence of any other acute ST-T changes. Troponins mildly elevated at 0.05 and increased to 0.26 and peaked at the same level. Likely NSTEMI type II secondary to hypertensive emergency. BNP 889. Rest of the labs and vitals appear to be stable except the WBC count is 12 but there was no evidence of infection. On presentation patient potassium level is 6.2. Unclear reason for the hyperkalemia. Hyperkalemia could be contributing to the bradycardia but patient appears to have underlying sick sinus syndrome which is the primary reason for the complete heart block which is exacerbated by the hyperkalemia. CXR noted possible early CHF. - Recommend to aggressively treat the hyperkalemia and keep the potassium level between 4 and 4.5. - Keep magnesium level greater than 2.0 at all times. - Recommend to stop any kind of beta-blockers calcium blockers or Aricept and other rate controlling medications. - Check procalcitonin. - Patient mostly will need permanent pacemaker given her complete heart block if she does not improve overnight. - Will keep the patient n.p.o. post midnight tonight and plan to do the pacemaker tomorrow morning. - Discussed there is benefits and alternatives of performing a permanent pacemaker including the risk of infection, bleeding, vascular injury or access site injury, pericardial effusion or tamponade secondary to blood loss or perforation including in detail with the patient. Patient agreeable for the procedure and wants to have the procedure. - Please do not give any aspirin or any kind of heparin subcu from today evening until 1 day after the procedure. - If patient is hemodynamically unstable then we will put a temporary pacemaker for tonight but patient is very much stable. Pacer pads for external pacing if needed. - Can use dopamine drip if patient is hypotensive but patient is hypertensive since admission. - Echocardiogram stat ordered to rule out any kind of LV function RV action diastolic function as well as valvular heart disease. Will follow-up with results. - Continue to monitor telemetry #Hypertensive emergency #Hx of HTN #LEXI Initial blood pressure was 217/57. Takes atenolol 70 mg daily, chlorthalidone 25 mg daily, lisinopril 20 mg twice daily. Likely cause of mildly elevated troponin as mentioned above, peaked at 0.265. - Hold beta-blockers as above - Recommend to keep systolic blood pressure less than 170 mmHg and can use IV hydralazine as needed if the systolic blood pressure is greater than 180 mmHg or if the patient is symptomatic. - Continue to monitor blood pressure and renal function #HLD ?Continue simvastatin 40 mg daily Thank you for your consultation, please do not hesitate to reach out if you have any question or concern Patient plan of care was discussed with the attending physician, Dr. Diaz. Annalee Zepeda, PGY-1 Attending Provider Attestation/Addendum I have personally seen and examined the patient separately on the above date of service and discussed the plan of care with the resident. I reviewed the resident Dr. Annalee Zepeda consultation progress note and agree with the resident findings and plan in the note above and have also edited the documentation to reflect my findings and plan. Jose C Diaz M.D. Interventional Cardiology
[2025-05-07] MEDS: FUROSEMIDE INJ 10 MG/ML 4ML VIAL 40 MG IVP (13:35)
[2025-05-07] MEDS: HEPARIN SOD INJ 5000 UNIT/ML VIAL SC (13:35)
[2025-05-07 13:36] LABS: Potassium 4.6 mMol/L (3.4-5.1)
--- NOTE | 2025-05-07 13:49 | PC.SS ---
[employer] conducted bedside contact with the patient conduct initial assessment and to discuss discharge planning.? Patient confirmed demographic information.? Patient resides at home alone.? Patient is retired.? Patient has access to a walker to assist with ambulation when needed.? Patient does not utilize home oxygen.? Patient describes the ability to complete ADL?s independently.? Patient identified sister, Uma Curran ; as medical surrogate decision maker.? Patient?s PCP is Dr. Rizvi.? Last PCP visit was approximately 1 month ago.? Patient does not participate with dialysis.? Patient does not possess any specialty providers.? Patient utilizes [facility] for medication services.? Patient confirms access to basic utilities and provisions.? Plan is for the patient to return home at the time of discharge.? Family will provide transportation on behalf of the patient.? No further discharge needs identified by the patient.? No further intervention required at this time, mental health social worker will be available to address any further concerns.? Next of Kin: Uma Mckeonfield D/C Plan: Home
[2025-05-07 14:17] LABS: Albumin, Serum 4.2 gm/dL (3.4-4.8); Anion Gap 13 (7-16); BUN/Creatinine Ratio 13 Ratio (12-20); Blood Urea Nitrogen 13 mg/dL (9-23); Calcium 10.1 mg/dL (8.3-10.6); Calcium (Corrected) 10.1 mg/dL (8.5-10.1); Carbon Dioxide 20.8 mMol/L (20.0-31.0); Chloride 98 mMol/L (98-107); Creatinine (Component) 1.0 mg/dL (0.6-1.3); Estimated Creatinine Clearance 32.7 mL/min (>60); Glucose 164 mg/dL (74-106); Osmolality,Calculated 268 (275-295); Phosphorous 3.6 mg/dL (2.4-5.1); Potassium 5.2 mMol/L (3.4-5.1); Sodium 132 mMol/L (136-145); eGFR 56 See Note
[2025-05-07 14:20] LABS: Troponin I 0.260 ng/mL (0.0-0.045)
[2025-05-07] MEDS: LACTULOSE SYRUP 20 GM/30 ML UDC PO (15:30)
[2025-05-07 16:14] LABS: Troponin I 0.265 ng/mL (0.0-0.045)
[2025-05-07] MEDS: ALBUTEROL RT 2.5 MG/0.5 ML NEBU INH (16:55)
[2025-05-07 18:59] LABS: Albumin, Serum 4.4 gm/dL (3.4-4.8); Anion Gap 13 (7-16); BUN/Creatinine Ratio 12 Ratio (12-20); Blood Urea Nitrogen 12 mg/dL (9-23); Calcium 9.9 mg/dL (8.3-10.6); Calcium (Corrected) 9.9 mg/dL (8.5-10.1); Carbon Dioxide 20.9 mMol/L (20.0-31.0); Chloride 100 mMol/L (98-107); Creatinine (Component) 1.0 mg/dL (0.6-1.3); Estimated Creatinine Clearance 32.7 mL/min (>60); Glucose 166 mg/dL (74-106); Osmolality,Calculated 271 (275-295); Phosphorous 4.1 mg/dL (2.4-5.1); Potassium 4.1 mMol/L (3.4-5.1); Sodium 134 mMol/L (136-145); eGFR 56 See Note
[2025-05-07 22:43] LABS: Troponin I 0.195 ng/mL (0.0-0.045)
[2025-05-07] MEDS: MELATONIN 3 MG TABLET PO (22:48)
[2025-05-07 23:46] LABS: Albumin, Serum 3.8 gm/dL (3.4-4.8); Anion Gap 16 (7-16); BUN/Creatinine Ratio 9 Ratio (12-20); Blood Urea Nitrogen 8 mg/dL (9-23); Calcium 9.2 mg/dL (8.3-10.6); Calcium (Corrected) 9.4 mg/dL (8.5-10.1); Carbon Dioxide 17.1 mMol/L (20.0-31.0); Chloride 102 mMol/L (98-107); Creatinine (Component) 0.9 mg/dL (0.6-1.3); Estimated Creatinine Clearance 36.3 mL/min (>60); Glucose 142 mg/dL (74-106); Magnesium 1.9 mg/dL (1.6-2.6); Osmolality,Calculated 270 (275-295); Phosphorous 4.2 mg/dL (2.4-5.1); Potassium 3.8 mMol/L (3.4-5.1); Sodium 135 mMol/L (136-145); eGFR > 60 See Note
[2025-05-08] VITALS (30 sets, daily range): BP systolic 124–186; BP diastolic 48–92; PULSE 34–103; RESP 12–98; TEMP 36.1–37.1; O2SAT 94–99
[2025-05-08] MEDS: FAMOTIDINE INJ 10 MG/ML VIAL 2 ML 20 MG IVP ×2 (01:28→20:28)
[2025-05-08] MEDS: Magnesium Sulfate 2 GM Ivpb 2 GM/50 ML BAG IV (01:36)
[2025-05-08 05:18] LABS: Basophils # (Auto) 0.0 Thou/mm3 (0.0-0.2); Basophils % (Auto) 0 % (0-2.5); Eosinophils # (Auto) 0.0 Thou/mm3 (0.0-0.5); Eosinophils % (Auto) 0 % (0-10); Hematocrit 33.3 % (36.0-46.0); Hemoglobin 11.3 g/dL (12.0-16.0); Immature Granulocytes Auto 0.04 Thou/mm3 (0.00-0.00); Lymphocytes # (Auto) 1.1 Thou/mm3 (1.0-4.8); Lymphocytes % (Auto) 11 % (10-50); Mean Corpuscular HGB Conc 33.9 g/dl (31.0-37.0); Mean Corpuscular Hemoglobin 31.0 pg (25.0-35.0); Mean Corpuscular Volume 92 fL (80-100); Monocytes # (Auto) 0.8 Thou/mm3 (0.0-0.8); Monocytes % (Auto) 7 % (0-12); Neutrophils # (Auto) 8.3 Thou/mm3 (1.8-7.7); Neutrophils % (Auto) 81 % (37-80); Nucleated Red Blood Cell # 0.00 Thou/mm3 (0.00-0.00); Nucleated Red Blood Cell % 0 /100 WBC (0); Platelet Count 231 Thou/mm3 (140-440); RDW Standard Deviation 47.6 fL (36.4-46.3); Red Blood Count 3.64 Miln/mm3 (4.00-5.20); White Blood Count 10.3 Thou/mm3 (3.6-11.0)
[2025-05-08 05:36] LABS: Alanine Aminotransferase 16 U/L (10-49); Albumin, Serum 3.5 gm/dL (3.4-4.8); Albumin/Globulin Ratio 1.7 (1.2-2.2); Alkaline Phosphatase 89 U/L (46-116); Anion Gap 13 (7-16); Aspartate Amino Transferase 24 U/L (0-34); BUN/Creatinine Ratio 10 Ratio (12-20); Bilirubin,Total 0.6 mg/dL (0.3-1.2); Blood Urea Nitrogen 8 mg/dL (9-23); Calcium 8.7 mg/dL (8.3-10.6); Calcium (Corrected) 9.1 mg/dL (8.5-10.1); Carbon Dioxide 20.0 mMol/L (20.0-31.0); Chloride 102 mMol/L (98-107); Creatinine (Component) 0.8 mg/dL (0.6-1.3); Estimated Creatinine Clearance 40.8 mL/min (>60); Globulin 2.1 gm/dL (2.3-3.5); Glucose 128 mg/dL (74-106); Magnesium 2.7 mg/dL (1.6-2.6); Osmolality,Calculated 270 (275-295); Phosphorous 3.8 mg/dL (2.4-5.1); Potassium 3.9 mMol/L (3.4-5.1); Sodium 135 mMol/L (136-145); Total Protein 5.6 gm/dL (5.7-8.2); eGFR > 60 See Note
[2025-05-08 07:51] LABS: Procalcitonin 0.08 ng/ml (0.0-0.49)
[2025-05-08 08:11] LABS: Glucose Estimated Average 123 mg/dL (80-131); Hemoglobin A1C 5.9 % Hgb (4.8-6.0)
--- NOTE | 2025-05-08 08:17 | PC.NURSE ---
Addendum entered by Mayank Lopez RN 05/08/25 11:02: left for procedure at 0814 not 1014 Original Note: pt left to [facility] with nurse paul at 1014 am for procedure, pt vitals stable
--- NOTE | 2025-05-08 11:36 | PD.RESPRO ---
Documentation for date of: 05/08/25 Subjective Subjective Interval history: Patient was seen and assessed at bedside. No new complaints. BP 139/56 this morning, heart rate 35-40. Saturating well on room air. Hemoglobin 11.3. Potassium 3.9, magnesium 2.7, replete. Lipid panel and TSH within normal limits. Patient was n.p.o. after midnight for pacemaker procedure today. Echo results below. Exam Vital Signs Temp Pulse Resp BP Pulse Ox O2 Del Method 98.6 F 36 L 16 162/48 H 97 Room Air 05/08/25 08:32 05/08/25 08:32 05/08/25 08:32 05/08/25 08:32 05/08/25 08:32 05/08/25 08:32 Narrative Exam Physical Exam General: Awake and in no acute distress. Conversational and non-toxic appearing. Pleasant elderly woman. Thin. HEENT: Normocephalic, atraumatic, mucous membranes moist. Heart: Bradycardic. Regular rate and rhythm, normal S1 and S2, no murmurs appreciated. Lungs: Clear to auscultation with no wheezing or crackles. Abdomen: Soft, nondistended, nontender, positive bowel sounds. No guarding or rebound tenderness. Neurologic: Alert and oriented x3, no gross neurological deficit, and patient able to move all 4 extremities. Extremities: 2+ lower extremity edema bilaterally L>R. Slightly cool extremities but pulses intact. Skin: No rash or ecchymoses. Objective Labs 05/09/25 05:00 05/08/25 04:35 Labs: Laboratory Results - last 24 hr 05/07/25 05/07/25 05/07/25 12:50 13:41 15:30 WBC RBC Hgb Hct MCV MCH MCHC RDW Std Deviation Plt Count Neut % (Auto) Lymph % (Auto) [place] % (Auto) Eos % (Auto) Baso % (Auto) Neut # (Auto) Lymph # (Auto) [place] # (Auto) Eos # (Auto) Baso # (Auto) Immature Gran # (Auto) Absolute Nucleated RBC Immature Gran % Nucleated RBC % Sodium 132 L Potassium 4.6 D 5.2 H D Chloride 98 Carbon Dioxide 20.8 Anion Gap 13 BUN 13 Creatinine 1.0 Estim Creat Clear Calc 32.7 L eGFR 56 L BUN/Creatinine Ratio [address] Glu mg/dL Hemoglobin A1c Calculated Osmolality 268 L Calcium 10.1 Corrected Calcium 10.1 Phosphorus 3.6 Magnesium Total Bilirubin AST ALT Alkaline Phosphatase Troponin I 0.260 H* 0.265 H* Total Protein Albumin 4.2 Globulin Albumin/Globulin Ratio Procalcitonin 05/07/25 05/07/25 05/08/25 18:15 21:40 04:35 WBC 10.3 RBC 3.64 L Hgb 11.3 L Hct 33.3 L MCV 92 MCH 31.0 MCHC 33.9 RDW Std Deviation 47.6 H Plt Count 231 D Neut % (Auto) 81 H Lymph % (Auto) 11 [place] % (Auto) 7 Eos % (Auto) 0 Baso % (Auto) 0 Neut # (Auto) 8.3 H Lymph # (Auto) 1.1 [place] # (Auto) 0.8 Eos # (Auto) 0.0 Baso # (Auto) 0.0 Immature Gran # (Auto) 0.04 H Absolute Nucleated RBC 0.00 Immature Gran % 0 Nucleated RBC % 0 Sodium 134 L 135 L 135 L Potassium 4.1 D 3.8 3.9 Chloride 100 102 102 Carbon Dioxide 20.9 17.1 L 20.0 Anion Gap 13 16 13 BUN 12 8 L 8 L Creatinine 1.0 0.9 0.8 Estim Creat Clear Calc 32.7 L 36.3 L 40.8 L eGFR 56 L > 60 > 60 BUN/Creatinine Ratio 12 9 L 10 L Glucose 166 H [address] Glu mg/dL 123 Hemoglobin A1c 5.9 Calculated Osmolality 271 L 270 L 270 L Calcium 9.9 9.2 8.7 Corrected Calcium 9.9 9.4 9.1 Phosphorus 4.1 4.2 3.8 Magnesium 1.9 2.7 H Total Bilirubin 0.6 AST 24 ALT 16 Alkaline Phosphatase 89 D Troponin I 0.195 H* Total Protein 5.6 L Albumin 4.4 3.8 D 3.5 Globulin 2.1 L Albumin/Globulin Ratio 1.7 Procalcitonin 0.08 ABG Interpretation ABG results: 05/07/25 07:40 VBG pH 7.42 VBG pCO2 29 L VBG pO2 31 VBG Base Excess -5 L Quality Measures Quality Measures none Advance care planning discussed with:: patient Assessment & Plan Assessment Current Active Medications: Generic Name Dose Route Start Last Admin Trade Name Freq PRN Reason Stop Dose Admin Acetaminophen 650 mg 05/07/25 09:31 Acetaminophen 325 Mg Tablet PO 06/06/25 09:30 Q6H PRN PAIN SCALE 1-3 (mild Acetaminophen 650 mg 05/08/25 08:34 Acetaminophen 325 Mg Tablet PO 06/06/25 09:30 Q6H PRN Fever >100.4 Famotidine 20 mg 05/08/25 01:15 05/08/25 10:06 Famotidine Inj 10 Mg/Ml Vial 2 Ml IVP 06/07/25 01:14 Not Given BID HYACINTH Heparin Sodium (Porcine) 5,000 unit 05/07/25 14:00 05/07/25 13:35 Heparin Sod Inj 5000 Unit/Ml Vial SC 05/21/25 13:59 5,000 unit On Hold: 05/07/25 20:58 Q8HR HYACINTH Administration Hydralazine HCl 10 mg 05/07/25 13:10 Hydralazine Inj 20 Mg/Ml Vial IVP 06/06/25 13:14 Q6H PRN SBP > 180 Ondansetron HCl 4 mg 05/07/25 09:31 Ondansetron Inj 2 Mg/Ml Inj 2 Ml IVP 06/06/25 09:30 Q6H PRN NAUSEA OR VOMITING Protocol Sennosides 1 tab 05/07/25 09:31 Senna Tablet PO 06/06/25 09:30 QDAY PRN constipation Protocol Plan Patient is an 84 year old female with PMH of diabetes (no meds), HTN, HLD, colon cancer (in remission, s/p partial colectomy 12 years ago) who presents with symptomatic bradycardia for the past week, found to have complete heart block on EKG, admitted to ICU for possible transcutaneous pacing. 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 Denied chest pain or chest pressure and other cardiac events except for the dizziness as well as fatigue and overall weakness. Prescribed atenolol but held it a week prior because she noticed her HR was low, and she is very sure of that. She just started her medications for cholesterol 2 days ago. Also has had chronic bilateral lower extremity swelling for the past 2 years, attributed to varicose veins per vascular surgeon years ago. Patient is hemodynamically stable even though she is in complete heart block. Troponins 0.051 -> 0.111 -> 0.260 -> 0.265 -> 0.195. Likely NSTEMI type II secondary to hypertensive emergency. BNP 889. Rest of the labs and vitals appear to be stable except the WBC count is 12 but there was no evidence of infection. Lipid panel: Trig 98, total cholesterol 106, HDL 32, LDL 55. TSH 1.59. A1c 5.9. EKG reviewed and shows complete heart block with a ventricular escape rate of 35-40 bpm. No evidence of any other acute ST-T changes. On presentation patient potassium level is 6.2. Unclear reason for the hyperkalemia. Hyperkalemia could be contributing to the bradycardia but patient appears to have underlying sick sinus syndrome which is the primary reason for the complete heart block which is exacerbated by the hyperkalemia. CXR noted possible early CHF. Echo 05/07/25 showed normal LV size. Hyperdynamic LV function 60 to 70%. Normal RV size and function. RVSP 30 mmHg with RAP 3. Mild pulmonary hypertension. Severe MAC. Severe thickening and calcification of the mitral valve leaflets as well as as well as the chordae tendonae. Mild to moderate mitral stenosis with a mean gradient of 67 mmHG. Moderate aortic stenosis with a V-max 2.0 with a mean gradient of around 20 mmHg. Mild mitral and tricuspid regurgitation. Trace pericardial effusion without cardiac tamponade. S/p pacemaker placement 05/08/2025. - Start metoprolol XL 25 mg daily , uptitrate daily as BP tolerates. - IV Lasix 20 mg daily for her chronic leg swelling, increase as tolerated. Monitor renal function - Continue to monitor telemetry - Keep potassium between 4 and 4.5 and magnesium level greater than 2.0 at all times. Patient will receive 500 mg of IV vancomycin and left arm sling postoperatively post pacemaker placement. Postoperative chest x-ray showed no evidence of any pneumothorax and cardiac leads were in satisfactory position. Patient recommended to not to lift any weights with his left hand and avoid significant shoulder movements along with the sling. Will need to send a prescription for Keflex 500 mg twice daily for a total of 10 days for antibiotic prophylaxis. Patient recommended to follow-up with me in the clinic in 7-10 days for staple removal. #Hypertensive emergency, resolved #Hx of HTN #LEXI Initial blood pressure was 217/57. Takes atenolol 70 mg daily, chlorthalidone 25 mg daily, lisinopril 20 mg twice daily. Likely cause of mildly elevated troponin as mentioned above, peaked at 0.265. - Start metoprolol and Lasix as above. - Continue to monitor blood pressure and renal function #HLD ?Continue simvastatin 40 mg daily Thank you for your consultation, please do not hesitate to reach out if you have any question or concern Patient plan of care was discussed with the attending physician, Dr. Diaz. Annalee Zepeda, PGY-1 Attending Provider Attestation/Addendum I have personally seen and examined the patient separately on the above date of service and discussed the plan of care with the resident. I reviewed the resident Dr. Annalee Zepeda consultation progress note and agree with the resident findings and plan in the note above and have also edited the documentation to reflect my findings and plan. Jose C Diaz M.D. Interventional Cardiology
--- NOTE | 2025-05-08 12:05 | XR_ITS ---
EXAMINATION: AP chest single view TECHNIQUE: AP upright portable chest single view Date and time: May 08, 2025, 12:13 p.m. INDICATIONS: Post pacemaker insertion FINDINGS: Cardiac leads satisfactory position Minor prominence left ventricle Mitral valvular calcification. No pneumothorax IMPRESSION: Cardiac leads satisfactory position
[2025-05-08] MEDS: VANCOMYCIN/NS 500 MG IVPB 100 ML 120 MG IV (12:28)
--- NOTE | 2025-05-08 14:06 | PC.NURSE ---
patient transferred back to room via gurney. hand off report given to kelby vias telephone and bedside report given to andrez. patient alert and oriented. GCS f 15. site is soft, flat, nontender and no signs of Hematoma. Andrez Rn and I assess dressing and site. dressing is clean dry and intact. patient to schedule appointment with doctor serrano within 1 week from discharge.
--- NOTE | 2025-05-08 15:25 | PD.CARDOPNOT ---
Procedure 1. Implantation of dual-chamber AV sequential permanent pacemaker. CPT 97298 2. Conscious sedation for 60 min 3. Ultrasound-guided access of the left subclavian vein Date of Procedure 05/08/25 Pre Op Diagnosis Complete heart block Indication 1. Complete heart block or third-degree heart block 2. Sick sinus syndrome 3. Bradycardia symptomatic Post Op Diagnosis Successful implantation of dual-chamber AV sequential permanent pacemaker-Cleary Procedure Description HISTORY AND INDICATIONS:? 84 year old female with PMH of diabetes (no meds), HTN, HLD, colon cancer (in remission, s/p partial colectomy 12 years ago) who presents with symptomatic bradycardia for the past week, found to have complete heart block on EKG, admitted to ICU. As per patient she has not been taking her antihypertensives including atenolol for the past 7 days except for her cholesterol medication. Had hyperkalemia on presentation which was treated and patient still continues to be in complete heart block and hence was recommended a permanent pacemaker. Patient was explained the risk benefits and alternatives of performing the procedure including the risk of bleeding, infection as well as perforation with hemopericardium in detail. Patient understands the risks and wishes to proceed with the procedure. Consent obtained for the same. H&P updated and placed in the chart. Procedure Description The patient was brought to cardiac catheterization laboratory where she was given total of 2.5 mg Versed and 75 mcg of fentanyl for sedation.? Left subclavian vein access obtained with help of ultrasound as well as micropuncture technique and Two guidewires were introduced.? A linear incision was made, with blunt dissection a pocket was created.? Two 6 Croat[place] sheaths were introduced into the subclavian vein.? Atrial and ventricular leads advanced into the right atrial appendage and right ventricular apex respectively.? Active fixation leads screw-in technique was used to secure the leads and thresholds were excellent.? After obtaining satisfactory threshold, both leads were anchored to the pectoral fascia, 2-0 silk suture.? Subsequently Cleary dual chamber pacemaker generator attached to the leads, placed in the pocket, secured to the fascia with 2-0 silk suture.? Subsequently, subcutaneous tissue was closed using 2-0 Vicryl as well as chromic continuous suture.? Skin was closed using darryl.? The patient was given 1 gram of Ancef preprocedure.? The patient tolerated the operation well with no complications.? Details of device as follows:? 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 Atrial capturing threshold 0.75 Volts @ 0.4 ms, sensing 3.5 millivolts, lead impedance 460 ohms. Ventricular capturing threshold 0.75 Volts @ 0.4 ms,? Sensing 8.9 millivolts.? Lead impedance 710 ohms.? The patient is programmed DDDR mode, baseline rate of 60 bpm, maximum track rate 130 beats bpm, Paced and Sensed AV delay of 180 ms. Patient will receive 500 mg of IV vancomycin and left arm sling postoperatively prior to discharge. Postoperative chest x-ray showed no evidence of any pneumothorax and cardiac leads were in satisfactory position. Patient recommended to not to lift any weights with his left hand and avoid significant shoulder movements. Will also send a prescription for Keflex 500 mg twice daily for a total of 10 days for antibiotic prophylaxis. Patient recommended to follow-up with me in the clinic in 7-10 days for staple removal. Estimated Blood Loss 5 Specimen(s) Specimen(s): None Conclusion Successful implantation of dual-chamber AV sequential permanent pacemaker-Cleary Recommendation Patient will receive 500 mg of IV vancomycin and left arm sling postoperatively prior to discharge. Postoperative chest x-ray showed no evidence of any pneumothorax and cardiac leads were in satisfactory position. Patient recommended to not to lift any weights with his left hand and avoid significant shoulder movements. Will need to send a prescription for Keflex 500 mg twice daily for a total of 10 days for antibiotic prophylaxis. Patient recommended to follow-up with me in the clinic in 7-10 days for staple removal. Surgical Staff Surgeon: Jose C Diaz MD
--- NOTE | 2025-05-08 16:39 | PD.ADDHP ---
Addendum History & Physical Addendum Date of report being addended: 05/08/25 Narrative: Attending attestation: I reviewed labs, imaging, EKG, home medications and prior available records. Face to face evaluation was performed by me. I have personally examined the patient and discussed assessment and plan with the IM team. I reviewed the resident note and agree with the plan with exceptions as below. Dizziness Complete heart block Non-STEMI, likely demand ischemia in the setting of CHF versus heart block New onset CHF Essential hypertension Leukocytosis, resolved Status post PPM Downgraded from ICU Continue IV Lasix Resume home lisinopril Follow-up echocardiogram Cardiology consulted
[2025-05-08] MEDS: FUROSEMIDE INJ 10 MG/ML VIAL 2 ML 20 MG IVP (17:16)
--- NOTE | 2025-05-08 18:15 | ESPR_ITS ---
<Statement entered by Fito Saez MD - 05/08/25 18:20> ICU downgrade for patient who presented with symptomatic bradycardia and hypertensive emergency with elevated troponins which have since peaked and downtrended. Patient seen and assessed in hospital bed status post pacemaker placement for 2-1 AV block, complete heart block with cardiology. Patient tolerated procedure well and denies having any concerning symptoms at this time. Will continue monitoring the patient overnight and manage blood pressure with cardiology recommendations pending. I have personally seen and examined the patient. I agree with the resident's assessment and plan as documented below. Fito Saez DO PGY-2 Internal Medicine - GME Documentation for date of: 05/08/25 Subjective Subjective Interval history: Patient has been downgraded from ICU to telemetry on 05/08/2025 after permanent pacemaker placement. She presented to the ED on 05/07/2025 due to dizziness and chest pressure. EKG revealed high-grade AV block. Today 05/08, permanent pacemaker has been placed. Echo is pending. Patient currently getting lisinopril 20 mg p.o. daily and furosemide 20 mg IV daily. Patient's incision site looked clean and dry without erythema. Denies chest pain, palpation, SOB, abdominal pain, N/V, fevers or chills. Patient condition will be monitored overnight, and likely to be discharged within 24 to 48 hours. Exam Vital Signs Temp Pulse Resp BP Pulse Ox O2 Del Method 98.7 F 79 17 153/77 H 99 Room Air 05/08/25 17:50 05/08/25 17:50 05/08/25 17:50 05/08/25 17:50 05/08/25 17:50 05/08/25 17:50 Narrative Exam General: No acute distress, well nourished, AAO x3 Eye: PERRL, EOMI, normal conjunctiva, no scleral icterus HENT: Normocephalic, atraumatic, hearing intact to conversation at normal volume, moist oral mucosa Neck: Supple, non-tender, no JVD, no lymphadenopathy Lungs: Non-labored respirations, symmetric chest rise, Clear to auscultate bilaterally, No wheezing, rhonchi, crackles Heart: Peripheral pulses intact bilaterally, systolic ejection at RUSB Abdomen: Soft, non-tender, non-distended, no palpable masses Musculoskeletal: Normal range of motion and strength, No cyanosis or edema, No visible joint swelling Skin: Skin is warm, dry, Multiple bruises on bilateral arm. Psychiatric: Cooperative, appropriate mood and affect, Awake and alert, not agitated Neuro: Cranial nerves II-XII grossly intact. Sensations intact to light touch. Objective Labs 05/09/25 05:00 05/09/25 05:00 Labs: Laboratory Results - last 24 hr 05/07/25 05/07/25 05/08/25 18:15 21:40 04:35 WBC 10.3 RBC 3.64 L Hgb 11.3 L Hct 33.3 L MCV 92 MCH 31.0 MCHC 33.9 RDW Std Deviation 47.6 H Plt Count 231 D Neut % (Auto) 81 H Lymph % (Auto) 11 [place] % (Auto) 7 Eos % (Auto) 0 Baso % (Auto) 0 Neut # (Auto) 8.3 H Lymph # (Auto) 1.1 [place] # (Auto) 0.8 Eos # (Auto) 0.0 Baso # (Auto) 0.0 Immature Gran # (Auto) 0.04 H Absolute Nucleated RBC 0.00 Immature Gran % 0 Nucleated RBC % 0 Sodium 134 L 135 L 135 L Potassium 4.1 D 3.8 3.9 Chloride 100 102 102 Carbon Dioxide 20.9 17.1 L 20.0 Anion Gap 13 16 13 BUN 12 8 L 8 L Creatinine 1.0 0.9 0.8 Estim Creat Clear Calc 32.7 L 36.3 L 40.8 L eGFR 56 L > 60 > 60 BUN/Creatinine Ratio 12 9 L 10 L Glucose 166 H [address] Glu mg/dL 123 Hemoglobin A1c 5.9 Calculated Osmolality 271 L 270 L 270 L Calcium 9.9 9.2 8.7 Corrected Calcium 9.9 9.4 9.1 Phosphorus 4.1 4.2 3.8 Magnesium 1.9 2.7 H Total Bilirubin 0.6 AST 24 ALT 16 Alkaline Phosphatase 89 D Troponin I 0.195 H* Total Protein 5.6 L Albumin 4.4 3.8 D 3.5 Globulin 2.1 L Albumin/Globulin Ratio 1.7 Procalcitonin 0.08 ABG Interpretation ABG results: 05/07/25 07:40 VBG pH 7.42 VBG pCO2 29 L VBG pO2 31 VBG Base Excess -5 L Quality Measures Quality Measures none Advance care planning discussed with:: patient and other Assessment & Plan Assessment Current Active Medications: Generic Name Dose Route Start Last Admin Trade Name Freq PRN Reason Stop Dose Admin Acetaminophen 650 mg 05/07/25 09:31 Acetaminophen 325 Mg Tablet PO 06/06/25 09:30 Q6H PRN PAIN SCALE 1-3 (mild Acetaminophen 650 mg 05/08/25 08:34 Acetaminophen 325 Mg Tablet PO 06/06/25 09:30 Q6H PRN Fever >100.4 Famotidine 20 mg 05/08/25 01:15 05/08/25 10:06 Famotidine Inj 10 Mg/Ml Vial 2 Ml IVP 06/07/25 01:14 Not Given BID HYACINTH Furosemide 20 mg 05/08/25 16:45 05/08/25 17:16 Furosemide Inj 10 Mg/Ml Vial 2 Ml IVP 06/07/25 16:44 20 mg QDAY HYACINTH Administration Heparin Sodium (Porcine) 5,000 unit 05/07/25 14:00 05/07/25 13:35 Heparin Sod Inj 5000 Unit/Ml Vial SC 05/21/25 13:59 5,000 unit On Hold: 05/07/25 20:58 Q8HR HYACINTH Administration Hydralazine HCl 10 mg 05/07/25 13:10 Hydralazine Inj 20 Mg/Ml Vial IVP 06/06/25 13:14 Q6H PRN SBP > 180 Lisinopril 20 mg 05/08/25 16:45 05/08/25 17:17 Lisinopril 20 Mg Tablet PO 06/07/25 16:44 20 mg QDAY HYACINTH Administration Ondansetron HCl 4 mg 05/07/25 09:31 Ondansetron Inj 2 Mg/Ml Inj 2 Ml IVP 06/06/25 09:30 Q6H PRN NAUSEA OR VOMITING Protocol Sennosides 1 tab 05/07/25 09:31 Senna Tablet PO 06/06/25 09:30 QDAY PRN constipation Protocol Plan 84-year-old female with a medical history significant for hypertension, hyperlipidemia, colon cancer (in remission, status post partial colectomy approximately 12 years ago), downgraded from ICU to tele on 05/08/2025 after permanent pacemaker placement. #Complete heart block #Symptomatic bradycardia-Resolved #Hyperkalemia- Resolved -EKG: sinus rhythm with high grade AV block. -Potassium level of 6.1 on admission. Potassium: 3.9 on 05/08 -Permanent Pacemaker has been placed 05/08/2025 Plan: -ECHO pending -On lisinopril 20 mg p.o. daily and furosemide 20 mg IV daily. -Cardiology is followingDr. -Monitor potassium levels. Keep potassium >4 and magnesium >2. #CHF -CXR(05/07/2025): Early CHF -On admision, 2+ pitting edema BLE. No edema noted on 05/08 -On admission, BNP: 889 Plan: -ECHO pending -Fluid restriction 1200 mL/day. -Cardiology following. #Troponemia- Resolving -Troponin peaked at 0.265. Downtrending to 0.195 #LEXI-Resolving -On admission: Cr: 1.0 (baseline 0.6-0.7) -Currently, Cr:0.8 Plan: -Daily renal panel to trend BUN, Cr, and electrolytes. -Avoid nephrotoxins. -Renally dose meds as appropriate. -Strict I&Os, monitor urine output closely. #Leukocytosis- Resolving -On admission 12.0, on 05/08: 10.3 Disposition: Telemetry for observation after pacemaker placement Diet: Cardiac diet GI prophylaxis: Famotidine DVT prophylaxis: SCD Code: FULL Assessment and plan discussed with my attending physician Dr. Quiroga and Dr. Payton (PGY-2) Dr. Trujillo (PGY-1) - Internal medicine resident Attending Provider Attestation/Addendum I reviewed labs, imaging, EKG, home medications and prior available records. Face to face evaluation was performed by me. I have personally examined the patient and discussed assessment and plan with the IM team. I reviewed the resident note and agree with the plan with exceptions as below. This is an H&P note. Please see my addendum in a separate document.
--- NOTE | 2025-05-08 18:48 | ESPR_ITS ---
<Statement entered by Ed Dietrich MD - 05/08/25 19:47> Patient seen and examined at bedside. I discussed and supervised with the design engineering intern physician who took care of this patient. I personally saw and examined the patient. I agree with most of the assessment and plan. Plan of care discussed with attending Dr. Alonso. Ed Dietrich MD PGY-2 Documentation for date of: 05/08/25 Subjective Subjective Interval history: 84-year-old female with a medical history significant for hypertension, hyperlipidemia, colon cancer (in remission, status post partial colectomy approximately 12 years ago) presented to the ED on 05/07/2025 with worsening dizziness and intermittent, non-radiating dull chest pressure in the center of the chest. The dizziness started about a week ago upon getting out of bed in the morning, accompanied by sweating and heart palpitations. She noted that lying down helped relieve the dizziness. Patient also reports intermittent, dull chest pain that does not radiate, as well as nausea this morning. She denies vomiting, dysuria, blood in the stool, abdominal pain, fever, or chills. In addition, the patient endorses orthopnea, new right lower extremity edema (noting that left lower extremity edema is baseline due to her chronic knee issues), and shortness of breath with walking. She mentions that the dizziness worsens with standing or walking but improves when sitting or lying down. The patient has experienced a decrease in appetite but has continued to drink water. She denies headache or vertigo. Patient states that although she does not have access to a blood pressure cuff or heart rate monitor at home, she has noticed a sensation of a [id number] heart rate. She also reports discontinuing her atenolol and lisinopril about a week ago, though she has continued taking simvastatin. The patient denies any recent illness. Patient admitted to the ICU for complete heart block. Dr. Diaz was consulted. ED Course: -Initial vitals were: BP 165/58, HR 40, RR 15, T 97.4F, O2 sat 98% on room air. -Labs significant for: WBC 12.0, RBC 3.93, PTT 21.8, VBG pH 7.42, pCO2 29, pO2 31, O2 sat 65%; sodium 129, potassium 6.1, chloride 97, eGFR 56, glucose 138, troponin 0.051, BNP 889. -Imaging included: CXR: early CHF, EKG: sinus rhythm with high grade AV block. -In the ED, patient was given: hydralazine 5mg IV x1, albuterol 2.5 mg x1, calcium gluconate 1 gram IV x1, dextrose 50 mg IVP x1, Insulin 5U x1, ondansetron 4 mg IV x1, sodium polystyrene sulfate 60 mg PO x1. Past Medical History: as above Past Surgical History: Partial colectomy, cholecystectomy (1992). Family History: No known family history of heart disease, MD, or stroke. 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 Allergies: No known drug allergies. Interval History: 05/08/2025: Overnight patient had multiple nonbloody loose stools. Patient's potassium levels decreased to normal range. Pepsid was given for the gastritis from kayexlate. Patient's systolic blood pressure in the 150s. No hydralazine was needed. HR was in 35-40s. Zofran was given for nause. Implantation of dual-chamber AV sequential permanent pacemaker was placed today. Patient's HR were in the 70s and systolic blood pressure was stable around 130s. Patient report that she was feeling much better and no longer dizzy. Patient was stable to downgrade to the floors. Exam Vital Signs Temp Pulse Resp BP Pulse Ox O2 Del Method 98.7 F 79 17 153/77 H 99 Room Air 05/08/25 17:50 05/08/25 17:50 05/08/25 17:50 05/08/25 17:50 05/08/25 17:50 05/08/25 17:50 Narrative Exam Physical Exam General: Awake and in no acute distress. Conversational and non-toxic appearing. Head: Normocephalic, atraumatic. Eyes: Pupils equally round and reactive to light. Anicteric. Mouth/Throat: Moist mucous membranes, Heart: Systolic ejection murmur heard at right upper sternal border, at 2nd ICS, radiating to carotids, bradycardic. No JVD. Lungs: Clear to auscultation with no wheezing or crackles. Non-labored respirations, symmetric chest rise, no use of accessory muscles. Abdomen: Soft, nontender. No guarding or rebound tenderness. Neurologic: Alert and oriented x4, no gross neurological deficit, and patient able to move all 4 extremities. Extremities: +1 pitting edema in lower extremities bilaterally, dorsalis pedis pulses +2 bilaterally. No clubbing or cyanosis. No mottling. Psychiatric: Cooperative, appropriate mood and affect Skin: No rash. Objective Labs 05/09/25 05:00 05/09/25 05:00 Labs: Laboratory Results - last 24 hr 05/07/25 05/07/25 05/08/25 18:15 21:40 04:35 WBC 10.3 RBC 3.64 L Hgb 11.3 L Hct 33.3 L MCV 92 MCH 31.0 MCHC 33.9 RDW Std Deviation 47.6 H Plt Count 231 D Neut % (Auto) 81 H Lymph % (Auto) 11 Hardy % (Auto) 7 Eos % (Auto) 0 Baso % (Auto) 0 Neut # (Auto) 8.3 H Lymph # (Auto) 1.1 Hardy # (Auto) 0.8 Eos # (Auto) 0.0 Baso # (Auto) 0.0 Immature Gran # (Auto) 0.04 H Absolute Nucleated RBC 0.00 Immature Gran % 0 Nucleated RBC % 0 Sodium 134 L 135 L 135 L Potassium 4.1 D 3.8 3.9 Chloride 100 102 102 Carbon Dioxide 20.9 17.1 L 20.0 Anion Gap 13 16 13 BUN 12 8 L 8 L Creatinine 1.0 0.9 0.8 Estim Creat Clear Calc 32.7 L 36.3 L 40.8 L eGFR 56 L > 60 > 60 BUN/Creatinine Ratio 12 9 L 10 L Glucose 166 H [address] Glu mg/dL 123 Hemoglobin A1c 5.9 Calculated Osmolality 271 L 270 L 270 L Calcium 9.9 9.2 8.7 Corrected Calcium 9.9 9.4 9.1 Phosphorus 4.1 4.2 3.8 Magnesium 1.9 2.7 H Total Bilirubin 0.6 AST 24 ALT 16 Alkaline Phosphatase 89 D Troponin I 0.195 H* Total Protein 5.6 L Albumin 4.4 3.8 D 3.5 Globulin 2.1 L Albumin/Globulin Ratio 1.7 Procalcitonin 0.08 ABG Interpretation ABG results: 05/07/25 07:40 VBG pH 7.42 VBG pCO2 29 L VBG pO2 31 VBG Base Excess -5 L Quality Measures Quality Measures none Advance care planning discussed with:: patient Assessment & Plan Assessment Current Active Medications: Generic Name Dose Route Start Last Admin Trade Name Freq PRN Reason Stop Dose Admin Acetaminophen 650 mg 05/07/25 09:31 Acetaminophen 325 Mg Tablet PO 06/06/25 09:30 Q6H PRN PAIN SCALE 1-3 (mild Acetaminophen 650 mg 05/08/25 08:34 Acetaminophen 325 Mg Tablet PO 06/06/25 09:30 Q6H PRN Fever >100.4 Famotidine 20 mg 05/08/25 01:15 05/08/25 10:06 Famotidine Inj 10 Mg/Ml Vial 2 Ml IVP 06/07/25 01:14 Not Given BID HYACINTH Furosemide 20 mg 05/08/25 16:45 05/08/25 17:16 Furosemide Inj 10 Mg/Ml Vial 2 Ml IVP 06/07/25 16:44 20 mg QDAY HYACINTH Administration Heparin Sodium (Porcine) 5,000 unit 05/07/25 14:00 05/07/25 13:35 Heparin Sod Inj 5000 Unit/Ml Vial SC 05/21/25 13:59 5,000 unit On Hold: 05/07/25 20:58 Q8HR HYACINTH Administration Hydralazine HCl 10 mg 05/07/25 13:10 Hydralazine Inj 20 Mg/Ml Vial IVP 06/06/25 13:14 Q6H PRN SBP > 180 Lisinopril 20 mg 05/08/25 16:45 05/08/25 17:17 Lisinopril 20 Mg Tablet PO 06/07/25 16:44 20 mg QDAY HYACINTH Administration Ondansetron HCl 4 mg 05/07/25 09:31 Ondansetron Inj 2 Mg/Ml Inj 2 Ml IVP 06/06/25 09:30 Q6H PRN NAUSEA OR VOMITING Protocol Sennosides 1 tab 05/07/25 09:31 Senna Tablet PO 06/06/25 09:30 QDAY PRN constipation Protocol Plan 84-year-old female with a history of hypertension, hyperlipidemia, and colon cancer (in remission) presents with symptomatic bradycardia of one week's duration, found to have complete heart block on EKG, and admitted to the ICU for potential transcutaneous pacing. Neurology #Presyncope DDx: hyperkalemia vs bradyarrhythmias vs aortic stenosis vs myocardial ischemia. Diagnostic Test: - Patient reports of dizziness (no vertigo) for one week. - EKG: sinus rhythm with high grade AV block. - On admission, heart rate of 37 bpm. Treatment Plan: - Pacemaker placed on 05/08. - Cardiology consulted, appreciate recommendations. Cardiovascular #Complete heart block #Symptomatic bradycardia #Hyperkalemia (resolved) DDx: sick sinus snydrome vs AV block vs medications vs hyperkalemia. Diagnostic Test: - EKG: sinus rhythm with high grade AV block. - Home medication atenolol 75 mg PO daily. Although patient reports that she has not taken it for the past week. - Heart rate of 37 bpm on admission. - Potassium level of 6.1 on admission. - Procalcitonin 0.08. Treatment already given: - Kayexalate 60 gram PO x1 to help lower potassium. - Lactulose 20 gram PO x1 to promote potassium excretion via the GI tract. - Albuterol to promote potassium shift into cells. - Calcium gluconate 1 gram x1 and Insulin 5 units x1 given in the ED. Treatment Plan: - Start metoprolol XL 25 mg daily , uptitrate daily as BP tolerates. - IV Lasix 40 mg daily for her chronic leg swelling, monitor renal function. - Hold subcutaenous heparin until around 3pm on 05/09 (1 day after procedure). - Implantation of dual-chamber AV sequential permanent pacemaker was placed on 05/08. - Continue cardiac monitoring. - Cardiology is following. - Keep potassium >4 and magnesium >2 at all times. - Discontinue home atenolol. #Severe mitral annular calcification #Mild pulmonary hypertension #Mild to moderate mitral stenosis #Moderate aortic stenosis Diagnostic Test: - Echo 05/07 results: Normal LV size, Hyperdynamic LV function 60 to 70%. Normal RV size and function. RVSP 30 mmHg with RAP 3. Mild pulmonary hypertension. Severe MAC. Severe thickening and calcification of the mitral valve leaflets as well as as well as the chordae tendonae. Mild to moderate mitral stenosis with a mean gradient of 67 mmHG. Moderate aortic stenosis with a V-max 2.0 with a mean gradient of around 20 mmHg. Mild mitral and tricuspid regurgitation. Trace pericardial effusion without cardiac tamponade. - Systolic heart murmur heard on the right upper sternal border at the 2nd intercostal space. Treatment Plan: - As above. - Cardiology is following. #Troponemia (resolving) DDx: NSTEMI type II vs STEMI vs unstable angina vs heart failure. Diagnostic Test: - Troponin: 0.051 --> 0.111 --> 0.260 --> 0.256 - - CXR: early CHR. Treatment Plan: - Troponin downtrending. #Hypertensive emergency (resolved) Diagnostic Test: - BP 197/52 on admission. - LEXI: Cr 1.0. Treatment Plan: - Keep systolic blood pressure less than 170. - IV hydralazine as needed for SBP > 180 or if patient is symptomatic. #Early chronic heart failure DDx: acute MD vs unstable angina vs hypertension related heart disease. Diagnostic Test: - CXR: early CHF. - Bilateral 2+ pitting edema of lower extremities on admission. - BNP 889 on admission. - Patient responded well to Lasix 40mg x1, improved LE edema, bilateral 1+ pitting edema of LEs. Treatment Plan: - IV Lasix 40 mg daily for her chronic leg swelling, monitor renal function. - Fluid restriction 1200 mL/day. - If any signs of hypoxia or respiratory distress then oxygen therapy may be needed. #Hyperlipidemia Diagnostic Test: - Lipid panel: Trig 98, total cholesterol 106, HDL 32, LDL 55. Treatment Plan: - Continue simvastatin 40 mg daily. Respiratory #no active problems GI and F/E/N #no active problems Renal #Hyponatremia (resolving) DDx: heart failure vs diuretics vs 3rd spacing. Diagnostic Test: - Sodium 129 --> 132 --> 134 --> 135 --> 135 Treatment Plan: - Strict I&Os. - Fluid restriction 1200 mL/hr. #Heart failure related acute kidney injury (improving) Diagnostic Test - Baseline Cr 0.6-0.7 - Admission Cr 1.0. - Cr 1.0 --> 1.0 --> 1.0 --> 0.9 --> 0.8. Treatment Plan: - Daily renal panel to trend BUN, Cr, and electrolytes. - Avoid nephrotoxins. - Renally dose meds as appropriate. - Strict I&Os, monitor urine output closely. - Monitor for signs of volume overload or uremic symptoms. Heme #Leukocytosis (resolved) DDx: infection vs medications vs stress response. Diagnostic Test: - WBC 12.0 on admission. - TSH 1.54. Treatment Plan: - Daily CBC. Endo #no active problems ID #no active problems Health Maintenance: Disposition: Tele. Management for primary team to follow-up on (per cardio recs). Start metoprolol XL 25 mg daily. IV Lasix 40 mg daily. Hold subcutaenous heparin until around 4pm on 05/09 (1 day after procedure). DVT prophylaxis: heparin 5000 subcutaneous GI prophylaxis: none Diet: cardiac diet, NPO after midnight Wen: none Lines: Peripherals Drips: none Vent: none CODE STATUS: DNR Patient discussed with my senior resident Dr Dietrich and attending, Dr. Alonso. Patrick Hung DO, PGY 1 Attending Provider Attestation/Addendum Patient seen and examined with above resident, Patrick Hung DO. I agree with the findings, assessment, and plan of care as documented except for any differences below. Patient remained stable overnight with symptomatic bradycardia. No evidence of hypoperfusion. Patient with multiple bowel movements after Kayexalate and lactulose given. Potassium improvement. Patient with diuretics given as well for lower extremity edema and CHF secondary to pericardial/complete heart block. Patient taken to Dairy Manufacturing Technologist for permanent place maker placement. Returns from [employer] [employer] [facility] with stable heart rate in the 70s, continue with. Patient without any acute complaints. Tolerating p.o. diet. Patient will be transferred to telemetry gardner for ongoing management prior to discharge in coming days. Total critical care time: I personally spent 30 minutes for review of physiologic parameters, directing plan of care, coordination of care with other subspecialties, and counseling patient at bedside. This is exclusive of time spent teaching housestaff performing a separate billable procedures. Patient remained at significant risk for further morbidity and mortality warranting close monitoring and care only available in the ICU. Critical care services required for complete heart block, congestive heart failure, hyperkalemia, acute renal failure.
--- NOTE | 2025-05-08 20:53 | PC.NURSE ---
DR. LILIANA MUNOZ DISCUSSED WITH PATENT.
[2025-05-08 21:44] LABS: Collection Type, Urine Clean Catch
[2025-05-08 21:50] LABS: Bilirubin,Urine Negative (Negative); Blood,Urine Negative (Negative); Clarity,Urine Clear (Clear/Hazy); Color,Urine Colorless (Lt Yel-Yel); Glucose, Urine Negative (Negative); Hyaline Casts,Urine < 1 /hpf (0-1); Ketones,Urine Negative (Negative); Leukocyte Esterase,Urine Positive (Negative); Nitrite,Urine Negative (Negative); PH,Urine 6.0 (5.0-7.0); Protein,Urine Negative (Neg - Trace); RBC,Urine 2 /hpf (0-3); Specific Gravity,Urine 1.007 (1.001-1.035); Squamous Epithelial Cell,Urine 4 /hpf (0-5); Urobilinogen,Urine Negative mg/dL (0.0-1.0); WBC,Urine 35 /hpf (0-5)
[2025-05-08 21:57] LABS: Chloride,Urine Random 126.0 mMol/L (55.0-125.0); Creatinine,Random Urine 14 mg/dL (30-125); Potassium,Urine Random 15 mMol/L (12-62); Sodium,Urine Random 124.0 mMol/L (20.0-110.0)
[2025-05-08] MEDS: MELATONIN 3 MG TABLET PO (23:25)
[2025-05-09] VITALS (7 sets, daily range): BP systolic 143–156; BP diastolic 62–72; PULSE 73–99; RESP 10–97; TEMP 36.1–36.7; O2SAT 95–98
[2025-05-09 05:36] LABS: Basophils # (Auto) 0.1 Thou/mm3 (0.0-0.2); Basophils % (Auto) 1 % (0-2.5); Eosinophils # (Auto) 0.1 Thou/mm3 (0.0-0.5); Eosinophils % (Auto) 2 % (0-10); Hematocrit 32.2 % (36.0-46.0); Hemoglobin 10.9 g/dL (12.0-16.0); Immature Granulocytes Auto 0.03 Thou/mm3 (0.00-0.00); Lymphocytes # (Auto) 1.4 Thou/mm3 (1.0-4.8); Lymphocytes % (Auto) 16 % (10-50); Mean Corpuscular HGB Conc 33.9 g/dl (31.0-37.0); Mean Corpuscular Hemoglobin 30.8 pg (25.0-35.0); Mean Corpuscular Volume 91 fL (80-100); Monocytes # (Auto) 0.9 Thou/mm3 (0.0-0.8); Monocytes % (Auto) 10 % (0-12); Neutrophils # (Auto) 6.4 Thou/mm3 (1.8-7.7); Neutrophils % (Auto) 72 % (37-80); Nucleated Red Blood Cell # 0.00 Thou/mm3 (0.00-0.00); Nucleated Red Blood Cell % 0 /100 WBC (0); Platelet Count 229 Thou/mm3 (140-440); RDW Standard Deviation 47.5 fL (36.4-46.3); Red Blood Count 3.54 Miln/mm3 (4.00-5.20); White Blood Count 8.9 Thou/mm3 (3.6-11.0)
[2025-05-09 06:09] LABS: Alanine Aminotransferase 13 U/L (10-49); Albumin, Serum 3.2 gm/dL (3.4-4.8); Albumin/Globulin Ratio 1.6 (1.2-2.2); Alkaline Phosphatase 90 U/L (46-116); Anion Gap 10 (7-16); Aspartate Amino Transferase 25 U/L (0-34); BUN/Creatinine Ratio 15 Ratio (12-20); Bilirubin,Total 0.8 mg/dL (0.3-1.2); Blood Urea Nitrogen 9 mg/dL (9-23); Calcium 8.3 mg/dL (8.3-10.6); Calcium (Corrected) 8.9 mg/dL (8.5-10.1); Carbon Dioxide 25.1 mMol/L (20.0-31.0); Chloride 100 mMol/L (98-107); Creatinine (Component) 0.6 mg/dL (0.6-1.3); Estimated Creatinine Clearance 54.8 mL/min (>60); Globulin 2.0 gm/dL (2.3-3.5); Glucose 116 mg/dL (74-106); Magnesium 2.0 mg/dL (1.6-2.6); Osmolality,Calculated 269 (275-295); Phosphorous 3.2 mg/dL (2.4-5.1); Potassium 3.8 mMol/L (3.4-5.1); Sodium 135 mMol/L (136-145); Total Protein 5.2 gm/dL (5.7-8.2); eGFR > 60 See Note
--- NOTE | 2025-05-09 07:33 | PC.NURSE ---
Pt. reminded not to use left arm for pushing, pulling or lifting and to not raise left arm above the head. Pt. agrees but requires reminders.
[2025-05-09] MEDS: FAMOTIDINE INJ 10 MG/ML VIAL 2 ML 20 MG IVP (08:29)
[2025-05-09] MEDS: HEPARIN SOD INJ 5000 UNIT/ML VIAL SC (08:30)
[2025-05-09] MEDS: FUROSEMIDE INJ 10 MG/ML VIAL 2 ML 20 MG IVP (08:30)
[2025-05-09] MEDS: METOPROLOL SUCCINATE XL 25 MG TABCR PO (08:30)
--- NOTE | 2025-05-09 08:51 | PD.RESPRO ---
Documentation for date of: 05/09/25 Subjective Subjective Interval history: Patient seen and assessed at bedside. S/p pacemaker insertion yesterday. Reports feeling more energized but has mild soreness at pacemaker insertion site otherwise no new complaints, denies chest pain, shortness of breath, palpitations, dizziness. Insertion site looks clean and intact, no surrounding erythema or drainage. Blood pressure 156/62, systolics 130s. Heart rate 70s to 80s. Hemoglobin slightly dropped to 10.9, likely secondary postop. Potassium 3.8, magnesium 2.0, creatinine 0.6. Sinus rhythm with inverted inferior leads on telemetry. Echo results below, note patient has severe MAC. Continue Keflex 500 mg twice daily for total 7 to 10-day course. Continue metoprolol XL 25 mg daily and Lasix 20 daily. Follow up in 10 days at clinic. Exam Vital Signs Temp Pulse Resp BP Pulse Ox O2 Del Method 98.0 F 75 14 143/70 H 98 Room Air 05/09/25 08:00 05/09/25 08:31 05/09/25 08:00 05/09/25 08:31 05/09/25 08:00 05/09/25 08:00 Narrative Exam Physical Exam General: Awake and in no acute distress. Conversational and non-toxic appearing. Pleasant elderly woman. Thin. HEENT: Normocephalic, atraumatic, mucous membranes moist. Heart: Bradycardic. Regular rate and rhythm, normal S1 and S2, no murmurs appreciated. Lungs: Clear to auscultation with no wheezing or crackles. Abdomen: Soft, nondistended, nontender, positive bowel sounds. No guarding or rebound tenderness. Neurologic: Alert and oriented x3, no gross neurological deficit, and patient able to move all 4 extremities. Extremities: 2+ lower extremity edema bilaterally L>R. Slightly cool extremities but pulses intact. Skin: No rash or ecchymoses. Objective Labs 05/09/25 05:00 05/09/25 05:00 Labs: Laboratory Results - last 24 hr 05/08/25 05/09/25 20:35 05:00 WBC 8.9 RBC 3.54 L Hgb 10.9 L Hct 32.2 L MCV 91 MCH 30.8 MCHC 33.9 RDW Std Deviation 47.5 H Plt Count 229 Neut % (Auto) 72 Lymph % (Auto) 16 Thurston % (Auto) 10 Eos % (Auto) 2 Baso % (Auto) 1 Neut # (Auto) 6.4 Lymph # (Auto) 1.4 Thurston # (Auto) 0.9 H Eos # (Auto) 0.1 Baso # (Auto) 0.1 Immature Gran # (Auto) 0.03 H Absolute Nucleated RBC 0.00 Immature Gran % 0 Nucleated RBC % 0 Sodium 135 L Potassium 3.8 Chloride 100 Carbon Dioxide 25.1 Anion Gap 10 BUN 9 Creatinine 0.6 Estim Creat Clear Calc 54.8 L eGFR > 60 BUN/Creatinine Ratio 15 Glucose 116 H Calculated Osmolality 269 L Calcium 8.3 Corrected Calcium 8.9 Phosphorus 3.2 Magnesium 2.0 Total Bilirubin 0.8 AST 25 ALT 13 Alkaline Phosphatase 90 Total Protein 5.2 L Albumin 3.2 L Globulin 2.0 L Albumin/Globulin Ratio 1.6 Ur Collection Type Clean Catch Urine Color Colorless A Urine Clarity Clear Urine pH 6.0 Ur Specific Camino 1.007 Urine Protein Negative Urine Glucose (UA) Negative Urine Ketones Negative Urine Blood Negative Urine Nitrite Negative Urine Bilirubin Negative Urine Urobilinogen (Auto) Negative Ur Leukocyte Esterase Positive Urine RBC 2 Urine WBC 35 H Ur Squamous Epith Cells 4 Urine Bacteria None Hyaline Casts < 1 Ur Random Creatinine 14 L Ur Random Sodium 124.0 H Ur Random Potassium 15 Ur Random Chloride 126.0 H ABG Interpretation ABG results: 05/07/25 07:40 VBG pH 7.42 VBG pCO2 29 L VBG pO2 31 VBG Base Excess -5 L Quality Measures Quality Measures none Advance care planning discussed with:: patient Assessment & Plan Assessment Current Active Medications: Generic Name Dose Route Start Last Admin Trade Name Didier PRN Reason Stop Dose Admin Acetaminophen 650 mg 05/07/25 09:31 Acetaminophen 325 Mg Tablet PO 06/06/25 09:30 Q6H PRN PAIN SCALE 1-3 (mild Acetaminophen 650 mg 05/08/25 08:34 Acetaminophen 325 Mg Tablet PO 06/06/25 09:30 Q6H PRN Fever >100.4 Cephalexin HCl 500 mg 05/09/25 09:00 05/09/25 08:31 Cephalexin 250 Mg Capsule PO 05/18/25 08:59 500 mg BID HYACINTH Administration Famotidine 20 mg 05/08/25 01:15 05/09/25 08:29 Famotidine Inj 10 Mg/Ml Vial 2 Ml IVP 06/07/25 01:14 20 mg BID HYACINTH Administration Furosemide 20 mg 05/08/25 16:45 05/09/25 08:30 Furosemide Inj 10 Mg/Ml Vial 2 Ml IVP 06/07/25 16:44 20 mg QDAY HYACINTH Administration Heparin Sodium (Porcine) 5,000 unit 05/09/25 09:00 05/09/25 08:30 Heparin Sod Inj 5000 Unit/Ml Vial SC 05/23/25 08:59 5,000 unit Q12HR HYACINTH Administration Hydralazine HCl 10 mg 05/07/25 13:10 Hydralazine Inj 20 Mg/Ml Vial IVP 06/06/25 13:14 Q6H PRN SBP > 180 Lisinopril 20 mg 05/08/25 16:45 05/09/25 08:31 Lisinopril 20 Mg Tablet PO 06/07/25 16:44 20 mg QDAY HYACINTH Administration Metoprolol Succinate 25 mg 05/09/25 09:00 05/09/25 08:30 Metoprolol Succinate Xl 25 Mg Tabcr PO 06/08/25 08:59 25 mg QDAY HYACINTH Administration Ondansetron HCl 4 mg 05/07/25 09:31 Ondansetron Inj 2 Mg/Ml Inj 2 Ml IVP 06/06/25 09:30 Q6H PRN NAUSEA OR VOMITING Protocol Sennosides 1 tab 05/07/25 09:31 Senna Tablet PO 06/06/25 09:30 QDAY PRN constipation Protocol Plan Patient is an 84 year old female with PMH of diabetes (no meds), HTN, HLD, colon cancer (in remission, s/p partial colectomy 12 years ago) who presents with symptomatic bradycardia for the past week, found to have complete heart block on EKG, admitted to ICU for possible transcutaneous pacing. 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 Denied chest pain or chest pressure and other cardiac events except for the dizziness as well as fatigue and overall weakness. Prescribed atenolol but held it a week prior because she noticed her HR was low, and she is very sure of that. She just started her medications for cholesterol 2 days ago. Also has had chronic bilateral lower extremity swelling for the past 2 years, attributed to varicose veins per vascular surgeon years ago. Patient is hemodynamically stable even though she is in complete heart block. Troponins 0.051 -> 0.111 -> 0.260 -> 0.265 -> 0.195. Likely NSTEMI type II secondary to hypertensive emergency. BNP 889. Rest of the labs and vitals appear to be stable except the WBC count is 12 but there was no evidence of infection. Lipid panel: Trig 98, total cholesterol 106, HDL 32, LDL 55. TSH 1.59. A1c 5.9. EKG reviewed and shows complete heart block with a ventricular escape rate of 35-40 bpm. No evidence of any other acute ST-T changes. On presentation patient potassium level is 6.2. Unclear reason for the hyperkalemia. Hyperkalemia could be contributing to the bradycardia but patient appears to have underlying sick sinus syndrome which is the primary reason for the complete heart block which is exacerbated by the hyperkalemia. CXR noted possible early CHF. Echo 05/07/25 showed normal LV size. Hyperdynamic LV function 60 to 70%. Normal RV size and function. RVSP 30 mmHg with RAP 3. Mild pulmonary hypertension. Severe MAC. Severe thickening and calcification of the mitral valve leaflets as well as as well as the chordae tendonae. Mild to moderate mitral stenosis with a mean gradient of 67 mmHG. Moderate aortic stenosis with a V-max 2.0 with a mean gradient of around 20 mmHg. Mild mitral and tricuspid regurgitation. Trace pericardial effusion without cardiac tamponade. S/p pacemaker placement 05/08/2025. Postoperative chest x-ray showed no evidence of any pneumothorax and cardiac leads were in satisfactory position. - S/p 500 mg IV vancomycin. Left sling in place. - Patient recommended to not to lift any weights with his left hand and avoid significant shoulder movements along with the sling. - Will need to send a prescription for Keflex 500 mg twice daily for a total of 10 days for antibiotic prophylaxis. - Patient recommended to follow-up with me in the clinic in 7-10 days for staple removal. - Continue metoprolol XL 25 mg daily, uptitrate daily as BP and HR tolerates. - IV Lasix 20 mg daily for her chronic leg swelling, increase as tolerated. Transition to Lasix 20 mg daily. Monitor renal function. Order BNP and renal panel for follow up. - Continue to monitor telemetry - Keep potassium between 4 and 4.5 and magnesium level greater than 2.0 at all times. #Hypertensive emergency, resolved #Hx of HTN #LEXI Initial blood pressure was 217/57. Takes atenolol 70 mg daily, chlorthalidone 25 mg daily, lisinopril 20 mg twice daily. Likely cause of mildly elevated troponin as mentioned above, peaked at 0.265. - Metoprolol and Lasix as above. - Continue to monitor blood pressure and renal function #HLD ?Continue simvastatin 40 mg daily Thank you for your consultation, please do not hesitate to reach out if you have any question or concern Patient plan of care was discussed with the attending physician, Dr. Diaz. Annalee Zepeda, PGY-1 Attending Provider Attestation/Addendum I have personally seen and examined the patient separately on the above date of service and discussed the plan of care with the resident. I reviewed the resident Dr. Annalee Zepeda consultation progress note and agree with the resident findings and plan in the note above and have also edited the documentation to reflect my findings and plan. Jose C Diaz M.D. Interventional Cardiology
--- NOTE | 2025-05-09 10:02 | PC.NURSE ---
Pt. refusing bed alarm. Pt. agrees to call for help. call light within reach and pt. educated on fall precautions.
--- NOTE | 2025-05-09 11:03 | PC.NURSE ---
Pt. is getting agitated and keeps coming out of room and states I will not have a ride home if I dont leave by 12. Dr. Trujillo aware and states I will come to bedside.
--- NOTE | 2025-05-09 11:36 | PD.RESDS ---
Planned Discharge Date 05/09/25 DS: Providers Provider Date of admission: 05/07/25 09:32 Primary care physician: Otilio Rizvi MD Admitting Provider: León Alonso MD Attending Provider on Admission: Mayank Quiroga MD Consults: 05/07/25 07:07 Consult to Cardiology Stat Comment: Consulting Provider: Jose C Diaz Attending Provider on DC: Juany Trujillo DO Discharging Provider: Juany Trujillo DO DS: Diagnosis Problem List Completed Was Problem List Reviewed/Reconciled?: Yes Hospital Course Hospital Course Hospital course: Summary: 84-year-old female with a medical history significant for hypertension, hyperlipidemia, colon cancer (in remission, status post partial colectomy approximately 12 years ago) presented to the ED on 05/07/2025 with worsening dizziness and intermittent, non-radiating dull chest pressure in the center of the chest. EKG showed sinus rhythm with high grade AV block. Permanent pacemaker was placed on 05/08. Patient was discharged on 05/09 with Metoprolo, furosemide, and Keflex. ED Course: -Initial vitals were: BP 165/58, HR 40, RR 15, T 97.4F, O2 sat 98% on room air. -Labs significant for: WBC 12.0, RBC 3.93, PTT 21.8, VBG pH 7.42, pCO2 29, pO2 31, O2 sat 65%; sodium 129, potassium 6.1, chloride 97, eGFR 56, glucose 138, troponin 0.051, BNP 889. -Imaging included: CXR: early CHF, EKG: sinus rhythm with high grade AV block. -In the ED, patient was given: hydralazine 5mg IV x1, albuterol 2.5 mg x1, calcium gluconate 1 gram IV x1, dextrose 50 mg IVP x1, Insulin 5U x1, ondansetron 4 mg IV x1, sodium polystyrene sulfate 60 mg PO x1. Hospital Course: Patient has been admitted to the ICU for management of complete heart block on 05/07/2025. Upon admission, cardiology has been consulted and pacemaker placement surgery has been scheduled.? Atenolol and subcutaneous heparin has been held for the procedure. Patient's troponin has peaked at 0.260 but has been downtrending to 0.256. CXR showed early CHF with bilateral 2+ pitting edema at lower extremities on admission with BNP 889. Patient was given furosemide with echo ordered. Permanent Pacemaker has been placed on 05/08/2025. Patient was downgraded to telemetry from ICU for close monitoring. Today 05/09 patient was stable. The patient was discharged on metoprolol succinate 25 mg, furosemide 20 mg, Keflex 500 mg p.o. twice daily. Advised patient to stop taking Lisinopril as she had hyperkalemia with 6.1 on admission. Instructions: Take metoprolol succinate 25 mg by mouth daily for blood pressure control Stop taking lisinopril, chlorthalidone and instead take furosemide 20 mg tablet daily for lower extremity swelling Complete antibiotic course with Keflex 500 mg by mouth twice a day for an additional 8-days Do not lift left arm above head for one week, do not push, pull or lift with left arm until cleared by Dr. Bullock. Follow-up with Dr. Diaz, cardiology, within 1 week of discharge for staple removal Please complete a renal function and BNP blood work before seeing Dr. Diaz Follow-up with your PCP within 1 week of discharge or follow-up at the [facility] [address] [place] [address] If your symptoms worsen or if you develop new chest pain, shortness of breath, dizziness or loss of consciousness - please come back to the ED immediately #Complete heart block #Symptomatic bradycardia-Resolved #Hyperkalemia- Resolved #CHF #Troponemia- Resolving #LEXI-Resolving #Leukocytosis- Resolving Assessment and plan discussed with my attending physician Dr. Sonja Trujillo (PGY-1) - Internal medicine resident Status at Discharge Overall status at discharge: patient is progressing back to baseline Time Spent with Patient Time attestation: Total time spent providing and/or coordinating discharge services: Time spent: Greater than 30 minutes Exam Vital Signs Temp Pulse Resp BP Pulse Ox O2 Del Method 98.0 F 75 14 143/70 H 98 Room Air 05/09/25 08:00 05/09/25 08:31 05/09/25 08:00 05/09/25 08:31 05/09/25 08:00 05/09/25 08:00 Narrative Exam General: No acute distress, well nourished, AAO x3 Eye: PERRL, EOMI, normal conjunctiva, no scleral icterus HENT: Normocephalic, atraumatic, hearing intact to conversation at normal volume, moist oral mucosa Neck: Supple, non-tender, no JVD, no lymphadenopathy Lungs: Non-labored respirations, symmetric chest rise, Clear to auscultate bilaterally, No wheezing, rhonchi, crackles Heart: Peripheral pulses intact bilaterally, systolic ejection at RUSB Abdomen: Soft, non-tender, non-distended, no palpable masses Musculoskeletal: Normal range of motion and strength, No cyanosis or edema, No visible joint swelling Skin: Skin is warm, dry, Multiple bruises on bilateral arm. Psychiatric: Cooperative, appropriate mood and affect, Awake and alert, not agitated Neuro: Cranial nerves II-XII grossly intact. Sensations intact to light touch. Discharge Plan Plan Patient Disposition: HOME (Self Care) Care Plan Goals: Take metoprolol succinate 25 mg by mouth daily for blood pressure control Stop taking lisinopril, chlorthalidone and instead take furosemide 20 mg tablet daily for lower extremity swelling Complete antibiotic course with Keflex 500 mg by mouth twice a day for an additional 8-days Do not lift left arm above head for one week, do not push, pull or lift with left arm until cleared by Dr. Bullokc. Follow-up with Dr. Diaz, cardiology, within 1 week of discharge for staple removal Please complete a renal function and BNP blood work before seeing Dr. Diaz Follow-up with your PCP within 1 week of discharge or follow-up at the [address] [place] [address] If your symptoms worsen or if you develop new chest pain, shortness of breath, dizziness or loss of consciousness - please come back to the ED immediately Prescriptions/Referrals Prescriptions/Med Rec: New metoprolol succinate 25 mg Tablet Extended Release 24 Hr 25 mg PO QDAY 30 Days Qty: 30 0RF furosemide [Lasix] 20 mg tablet 20 mg PO QDAY 30 Days Qty: 30 0RF cephalexin 500 mg capsule 500 mg PO BID 8 Days Qty: 16 0RF Continued acetaminophen [Tylenol Extra Strength] 500 mg tablet 500 mg PO Q6H PRN (Reason: pain) Qty: 30 0RF simvastatin 40 mg tablet 40 mg PO QDAY Patient Comments: TAKE ONE TABLET BY MOUTH AT BEDTIME FOR CHOLESTEROL alendronate 35 mg tablet 35 mg PO QAM Patient Comments: TAKE ONE TABLET BY MOUTH EVERY WEEK IN THE MORNING WITH GLASS OF WATER 30min BEFORE food Discontinued lisinopril 20 mg tablet 20 mg PO BID Patient Comments: TAKE ONE TABLET BY MOUTH TWICE DAILY HIGH BLOOD PRESSURE chlorthalidone 25 mg tablet 25 mg PO .qac Patient Comments: TAKE ONE TABLET BY MOUTH EVERY MORNING atenolol 50 mg tablet 75 mg PO QDAY Patient Comments: TAKE 1 AND 1/2 TABLETS BY MOUTH EVERY DAY FOR BLOOD PRESSURE cephalexin 500 mg capsule 500 mg PO QID Referrals: Jose C Diaz MD [Physician, Cardiology] Otilio Rizvi MD [Primary Care Provider, Nephrology] Outpatient Orders (i.e. Home Health, Labs, Imaging): B-Type Natriuretic Peptide (Routine) Location: None Selected Ordered By: Fito Saez Renal Function Panel (Routine) Location: None Selected Ordered By: Fito Saez Patient/Caregiver Discharge Instructions Education Materials: Aortic Valve Stenosis Dc, Blood Pressure Check Steps Print Language: Yi Activity Restrictions/Additional Instructions: please schedule appointment with dr. diaz within one week of discharge. Stand Alone Forms: [place] Award Info., Patient Portal Info Letter Discharge Order Discharge Orders: Discharge (Routine); Ordered 05/09/25 Ordered By: Fito Saez Quality Discharge Quality Measures VTE prophylaxis MD Attestestation MD Attestation I have examined the patient, reviewed labs and imaging findings, discussed the case with the resident(s), and reviewed entered orders. I agree with the plan of care as outlined in this note. Time Spent: [address] Sonja MD
--- NOTE | 2025-05-09 11:58 | PC.SS ---
Rounding: Pt to DC home today, no further needs.
== END 2025-05-09 11:55 | disposition home or self-care (01) | DRG 243 ==
LOC: SERX 08:06 → SERHOLD 10:01 → S2SX 11:15 → S2NX 05-08 17:33
PROVIDERS: Internal Medicine Cardiovascular Disease; Nurse Practitioner Family; Admitting Provider Internal Medicine Critical Care Medicine; Emergency Provider Emergency Medicine; PCP Internal Medicine; Visit Provider Student in an Organized Health Care Education/Training Program
PROC: 0JH606Z Insertion of Pacemaker, Dual Chamber into Chest Subcutaneous Tissue and Fascia, Open Approach (ICD-10-PCS; principal; 2025-05-08 08:30)
DX: I44.2 Atrioventricular block, complete (principal); E87.1 Hypo-osmolality and hyponatremia; I16.1 Hypertensive emergency; N17.9 Acute kidney failure, unspecified; I50.30 Unspecified diastolic (congestive) heart failure; Z90.49 Acquired absence of other specified parts of digestive tract; E87.5 Hyperkalemia; R00.1 Bradycardia, unspecified; I11.0 Hypertensive heart disease with heart failure; D72.829 Elevated white blood cell count, unspecified; E78.5 Hyperlipidemia, unspecified; I35.0 Nonrheumatic aortic (valve) stenosis; I27.20 Pulmonary hypertension, unspecified; R60.0 Localized edema; I83.90 Asymptomatic varicose veins of unspecified lower extremity; Z85.038 Personal history of other malignant neoplasm of large intestine; I49.5 Sick sinus syndrome; K29.70 Gastritis, unspecified, without bleeding; I05.0 Rheumatic mitral stenosis; E11.9 Type 2 diabetes mellitus without complications; Z95.0 Presence of cardiac pacemaker; Z66 Do not resuscitate; Z79.4 Long term (current) use of insulin; Z79.899 Other long term (current) drug therapy
CPT/HCPCS: 36415; 71045; 80053; 80061; 80069; 81001; 82436; 82570; 82803; 83036; 83735; 83880; 84100; 84132; 84133; 84145; 84300; 84443; 84484; 85025; 85610; 85730; 87081; 93005; 93306; 94640; 96372; 96374; 96375; 99284; A4565; J0168; J0360; J0612; J0689; J0690; J1644; J1815; J1938; J2250; J2312; J2371; J2405; J3010; J3373; J3475; J3490; A9270

== ENCOUNTER → 2025-05-29 | Outpatient (CLI) | payer MEDICARE, SELFPAY ==
[2025-05-29 10:23] LABS: Anion Gap 9 (7-16); BUN/Creatinine Ratio 15 Ratio (12-20); Blood Urea Nitrogen 9 mg/dL (9-23); Calcium 9.4 mg/dL (8.3-10.6); Carbon Dioxide 28.5 mMol/L (20.0-31.0); Chloride 100 mMol/L (98-107); Creatinine (Component) 0.6 mg/dL (0.6-1.3); Glucose 165 mg/dL (74-106); Osmolality,Calculated 276 (275-295); Potassium 4.7 mMol/L (3.4-5.1); Sodium 137 mMol/L (136-145); eGFR > 60 See Note
== END | disposition home or self-care (01) ==
LOC: COPL 08:54
PROVIDERS: PCP Internal Medicine; Referring Provider Internal Medicine Cardiovascular Disease; Visit Provider Internal Medicine Cardiovascular Disease
DX: M79.89 Other specified soft tissue disorders (principal)
CPT/HCPCS: 36415; 80048

== ENCOUNTER 2025-07-19 06:04 | Inpatient (IN) | payer MEDICARE, SELFPAY ==
[2025-07-19] VITALS (8 sets, daily range): BP systolic 127–168; BP diastolic 76–91; PULSE 87–100; RESP 14–97; TEMP 36.6–37.1; O2SAT 95–96; BMI 23.4
--- NOTE | 2025-07-19 06:27 | XR_ITS ---
Examination: CT brain head without contrast. 2-D sagittal coronal reconstructions Date and time of exam: July 19, 2025, 0633 hours INDICATIONS: Stroke alert, onset left facial paralysis today CTDI: vol (mGy): 49.9 DLP: (mGycm): 953 Technique: Multiple CT axial sections of the brain have been obtained, 5 mm slice thickness. Contrast has not been administered. 2-D sagittal, coronal reconstructions have been obtained Low dose protocols were performed. One or more of the following dose reduction techniques were used; automated exposure control, adjustment of the mA and/or KV according to patient size, use of iterative reconstruction technique. Findings: No significant ventricular enlargement. 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 No mass effect or midline shift Basal cisterns are not remarkable. Fourth ventricle is midline. Cranial vault intact. Impression: Negative for acute hemorrhage, mass effect or midline shift
--- NOTE | 2025-07-19 06:27 | XR_ITS ---
EXAMINATION: AP chest single view TECHNIQUE: AP portable upright chest single view Date and time: July 19, 2025, 0649 hours, comparison May 08, 2025 INDICATIONS: Shortness of breath tonight FINDINGS: Mild prominence left ventricle Mitral valvular calcification Mild vascular congestion. No aspiration pneumonia. Stable small pulmonary nodules left upper lobe Severe osteopenia Transvenous dual-chamber bipolar cardiac leads satisfactory position IMPRESSION: Mild vascular congestion No lobar pneumonia
--- NOTE | 2025-07-19 06:27 | XR_ITS ---
Examination: CTA carotids with intravenous contrast CTA brain, head with intravenous contrast. 2-D sagittal, coronal reconstructions. 3-D reconstructions. Exam date and time: 07/19/2025 at 8:20 a.m. CTDI: vol (mGy) 16.8 DLP: (mGycm) 433 INDICATION: Slurred speech left facial paralysis this morning rule out stroke Technique: Multiple CTA axial brain, head carotid images post intravenous contrast injection 100 cc, [id number]. 2-D sagittal, coronal reconstructions. 3-D reconstructions, 3-D post processing including vascular maximum intensity projection images. Low dose protocols were performed. One or more of the following dose reduction techniques were used; automated exposure control, adjustment of the mA and/or KV according to patient size, use of iterative reconstruction technique. 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 The left [employer] originates from the left internal carotid artery. In the interval internal carotid artery circulation, there is diffuse heavy atherosclerotic calcification involving both right and left internal carotids within the cavernous sinus region. I'm not able to see any definite significant stenosis however. In the brain the proximal and peripheral portions of both right and left anterior and middle cerebral artery systems is normal. Likewise the intracranial portion of the posterior cerebral artery circulation is entirely normal. The paranasal sinuses and mastoids appear clear. In the cervical region, the origin of both right and left common carotid arteries is normal. Right common carotid artery is normal, there is very extensive atherosclerotic calcification noted involving the the right carotid bifurcation and proximal internal carotid artery. However are not able to see a definite area of significant stenosis. There is a dual lead catheter which has been inserted from the left upper extremity, it extends through the left subclavian vein into the superior vena cava and it appears to be directed into the heart although this is below the lowermost images There are a few air bubbles along the anterior margin of the right subclavian vein and proximal internal jugular vein, and on images proceeding cephalad in the right side of the neck there is major underlying toward major dilatation of the right jugular vein measuring 2.1 cm in diameter, this diameter is markedly abnormal, more cephalad it measures 2.9 cm in diameter. There are what appear to be significant abnormal filling defects within the right jugular vein. There are also significant filling defects noted in the left jugular vein which remains normal in size. The entire venous system within the cranial vault appears perfectly normal, and normally opacified with contrast media. IMPRESSION: 1. 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 2. There is diffuse significant calcification of both internal carotid arteries in the cavernous sinus but no vascular stenosis is noted on either side. 3 all of the intracranial arteries appear normal. 4. In the cervical region there is extensive atherosclerotic calcification noted in the region of the bifurcation of the right common carotid artery and proximal internal carotid, similar calcifications slightly less prominent are seen at the left common carotid artery bifurcation no stenosis seen. 5 both vertebral arteries appear normal 6. A cardiac pacemaker electrode lead has been recently inserted from the left upper extremity. On the right side there are small air bubbles noted along the anterior margin of the lower most jugular vein and subclavian vein, and there is major abnormal dilatation of the the right vertebral artery. The appearance suggests that the opacified right jugular vein is abnormally enlarged, with a very large surrounding nonopacified collection of blood/hematoma, and there appear to be prominent filling defects within the enhanced right jugular vein 7 the left jugular vein is not abnormally enlarged but there appear to be significant filling defects within it as well 8 this more definite further follow-up I would recommend an MRI cerebral angiogram with gadolinium contrast. If this is confirmed, this represents a very serious abnormality, with probable extravasation of blood from the right jugular as well as numerous intraluminal clots in both right and left jugular vein On the left the common carotid artery appears normal. There is moderate calcification at the bifurcation, extending minimally up into the proximal left internal carotid artery Do not see any stenosis here. The remainder of the internal carotid arteries in the neck and extending through the the foramen lacerum
--- NOTE | 2025-07-19 06:27 | EKG_ITS ---
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
--- NOTE | 2025-07-19 06:28 | EDNOTE_ITS ---
ED General RME/HPI General Chief complaint: General Adult/Misc Complain Stated complaint: L FACIAL PARALYSIS Time Seen by Provider: 07/19/25 06:14 Arrival date/time: 07/19/25 06:04 RME / HPI RME / HPI narrative: See MDM Related Data Home Medications ?Medication ?Instructions ?Recorded ?Confirmed alendronate 35 mg tablet 35 mg PO QAM 05/07/25 simvastatin 40 mg tablet 40 mg PO QDAY 05/07/2505/07 Previous Rx's ?Medication ?Instructions ?Recorded acetaminophen 500 mg tablet 500 mg PO Q6H PRN pain #30 tabs 04/02/20 (Tylenol Extra Strength) Allergies Allergy/AdvReac Type Severity Reaction Status Date / Time No Known Allergies Allergy Verified 07/19/25 06:10 Review of Systems Review of Systems Systems Reviewed: All systems reviewed, normal except as documented Past Medical History Past Medical History CARDIAC: Positive Cardiac Disorders (PACEMAKER), Hypercholesterolemia and Hypertension GASTROINTESTINAL: Positive Gall Bladder Disease and Colorectal Cancer (12 years chemo) MUSCULOSKELETAL: Positive Arthritis and Osteoporosis PSYCHO/SOCIAL: Positive Anxiety OTHER HISTORY: Positive Measles and Colorectal Cancer (12 years chemo) Surgical History SURGICAL: Positive Cardiac Surgery, Pacemaker and Abdominal Surgery (colon ca removed) Social History SMOKING STATUS: Never smoker ED Exam Narrative Physical exam: See MDM Course Quality Measures Suspected type of Stroke: Non Acute Tenecteplase given: Reason(s) TPA not given: Stroke severity too mild (non-disabling) (Patient was not having a stroke) not given stroke Orders Category Date Time Status Bedside Blood Glucose NOW Care 07/19/25 06:27 Active COVID-19 Screening Questionnaire NOW Care 07/19/25 11:33 Active Terminal Operator NOW Care 07/19/25 06:27 Active Continuous Pulse Oximetry NOW Care 07/19/25 06:27 Completed Decision to Admit X1 Care 07/19/25 11:33 Completed EKG (ED ONLY) *Do not use* NOW Care 07/19/25 06:27 Completed EKG (ED ONLY) *Do not use* NOW Care 07/19/25 10:58 Completed In and Out Catheter NEEDED Care 07/19/25 06:27 Active Insert IV NOW Care 07/19/25 06:27 Active NIH Stroke Scale now Care 07/19/25 06:27 Active NPO NOW Care 07/19/25 06:27 Active Neuro Check Q30MIN Care 07/19/25 06:27 Active Nurse Swallow Screen x1 Care 07/19/25 06:27 Active Consult to Neurology / Tele-Neurology Routine Cons 07/19/25 06:27 Active CA echo doppler complete Stat Exams 07/19/25 14:[address] angio stroke protocol Stat Exams 07/19/25 06:[address] stroke protocol Stat Exams 07/19/25 06:27 Completed EKG (ED Only) Stat Exams 07/19/25 06:27 Draft EKG (ED Only) Stat Exams 07/19/25 10:58 Draft US venous doppler UE RT Stat Exams 07/19/25 12:46 Completed XR chest 1V portable Stat Exams 07/19/25 06:27 Completed B-Type Natriuretic Peptide Stat Lab 07/19/25 06:25 Completed CBC Stat Lab 07/19/25 06:25 Completed Comprehensive Metabolic Panel Stat Lab 07/19/25 07:15 Completed Drug Screen,Urine Stat Lab 07/19/25 07:30 Completed Magnesium Stat Lab 07/19/25 07:15 Completed Partial Thromboplastin Time Stat Lab 07/19/25 06:25 Completed Prothrombin Time with INR Stat Lab 07/19/25 06:25 Completed Troponin I Stat Lab 07/19/25 07:15 Completed Troponin I Stat Lab 07/19/25 11:37 Completed Troponin I Stat Lab 07/19/25 13:30 Completed Urinalysis, C/S if Indicated Stat Lab 07/19/25 07:30 Completed Aspirin Chew Med 07/19/25 06:47 Discontinued 81 mg PO X1 ONE Clopidogrel [Plavix] Med 07/19/25 06:47 Discontinued 300 mg PO X1 ONE Labetalol* IV [Trandate IV] Med 07/19/25 06:27 Active 10 mg IVP Q15M PRN Ondansetron Inj [Zofran Inj] Med 07/19/25 06:27 Active 4 mg IVP Q4H PRN Oxygen Delivery NOW RT 07/19/25 06:27 Active Vital Signs Vital signs: Vital Signs Temperature 98 F 07/19/25 06:29 Pulse Rate 99 07/19/25 06:29 Respiratory Rate 17 07/19/25 06:29 Blood Pressure 168/87 H 07/19/25 06:29 Pulse Oximetry (%) 96 07/19/25 06:29 Oxygen Delivery Method Room Air 07/19/25 06:29 Critical Care Time Critical Care Time Critical Care Time: Yes Total Critical Care Time (min.): 45 Attestation: The high probability of sudden, clinically significant deterioration in the patient's condition required the highest level of my preparedness to intervene urgently. The services I provided to this patient were to treat and/or prevent clinically significant deterioration. Services included the following: chart data review, reviewing nursing notes and/or old charts, documentation time, development consultant collaboration regarding findings and treatment options, medication orders and management, direct patient care, vital sign assessments and ordering, interpreting and reviewing diagnostic studies and lab tests. Aggregate critical care time includes only time during which I was engaged in wo rk directly related to the patient's care, as described above, whether at bedside or elsewhere in the Emergency Department. It did not include time spent performing other reported procedures or the services of residents, students, nurses or physician assistants. Discharge Plan Plan Patient Disposition: Admit Acute Care w/in Hospital Prescriptions/Referrals Prescriptions/Med Rec: No Action acetaminophen [Tylenol Extra Strength] 500 mg tablet 500 mg PO Q6H PRN (Reason: pain) Qty: 30 0RF simvastatin 40 mg tablet 40 mg PO QDAY Patient Comments: TAKE ONE TABLET BY MOUTH AT BEDTIME FOR CHOLESTEROL alendronate 35 mg tablet 35 mg PO QAM Patient Comments: TAKE ONE TABLET BY MOUTH EVERY WEEK IN THE MORNING WITH GLASS OF WATER 30min BEFORE food Referrals: Otilio Rizvi MD [Primary Care Provider, Nephrology] - In 1 week Problem List Clinical Impression: Myocardial infarction, Elevated troponin Patient/Caregiver Discharge Instructions Print Language: Uzbek Stand Alone Forms: [facility] Award Info., Patient Portal Info Letter MDM Narrative MDM hospital course (for use when minimal MDM required): This section includes all my notes and documentations, including HPI, PE, and ED course. Christopher Khan MD ? HPI: 84-year-old female presents to the emergency department with stroke like symptoms that she noticed when she first awoke from sleep about half hour ago. So it is been 11 hours since she was last seen normal. Pacemaker due to complete heart block, CHF, hypertension, aortic stenosis. ? ROS: All negative except as documented in HPI. ? PE: GENERAL APPEARANCE:? alert and oriented x 4, well-developed, well-nourished VITALS: All vitals were reviewed and the pulse ox is 96% on room air, which is normal according to my interpretation. HEENT: Normocephalic, atraumatic; pupils equal, round, reactive to light; EOMI; mucous membranes pink, moist; oropharynx clear NECK: Supple LUNGS: CTABL; no wheezes, no rales, no rhonchi HEART: Regular rate, regular rhythm; normal S1, S2; no murmurs ABDOMEN: non distended; normal BS;? soft, no tenderness, no guarding, no rebound; no masses, no organomegaly, no hernia?? BACK:? no CVA tenderness EXTREMITIES:? atraumatic; no edema NEUROLOGIC: awake; alert and oriented x4; on initial exam there is left facial droop and dysarthria, mild. However, on detailed exam patients cranial nerves II-XII are grossly intact; no focal sensory or motor deficits PSYCHIATRIC:? appropriate mood and affect SKIN: warm, dry, normal color; no rashes ? I reviewed all diagnostic test results: My interpretation of the chest x-ray is mild vascular congestion, no pneumonia. EKG #1 @ 06:36 am, interpreted by me, shows paced rhythm with ventricular rate of 96, good sensing and capturing, negative for ischemic changes meeting sgarboassa criteria. EKG #2 @ 12:05 pm, interpreted by me, paced rhythm, rate 91, with good sensing a nd good capture. My review of the head CT report is: Negative for acute hemorrhage. My review of the head/neck CTA report is: There are what appear to be significant abnormal filling defects within the right jugular vein. My review of the venous doppler study report is: Negative for DVT. Blood tests and urine test: CBC and PT/PTT are unremarkable Troponin #1 1.076, troponin #2 1.168, troponin #3 1.185 ? At this point, diagnoses include: Myocardial infarction Elevated troponin 0643: I spoke with teleneurologist Dr. Starks. States patient is not a TNK candidate at this time. 0801 AM: Notified by RN the troponin is elevated at 1.076. CTA had yet to be performed. I called CT and report the teleneurologist did not recommend CTA and was not performed. I made them aware my order is still standing. Patient will be taken to CT. 1113: On reassessment, the patient reports the right side of her face feeling frozen and I'm talking like I'm drunk . Denies any chest pain at this time. 1115: I spoke with folding machine tender Dr. Bojorquez. Discussed patients PMHx, HPI, ED course, exam findings, labs, and radiology results. He agrees to consult. 1120: I spoke with hospitalist team C for admission. Discussed patients PMHx, HPI, ED course, exam findings, labs, and radiology results. Will come down and evaluated the patient in the ED. 1248: Hospitalist team have come to the ED and expressed concerns of head/neck CTA findings. Requesting we consult with our neurologist Dr. Cloud prior to admission. 1250: I spoke with neurologist Dr. Cloud. Discussed patients PMHx, HPI, ED course, exam findings, labs, and radiology results. States the patient is cleared on the neurological side and findings are most likely from the dominant right jugular and advised getting an ultrasound. 1325: The second troponin was not drawn and was evidently canceled by lab. I reordered the troponin. 1412: I spoke with patients PCP Dr. Rizvi. Discussed patients PMHx, HPI, ED course, exam findings, labs, and radiology results. She accepts the patient for admission. 1414: Patients folding machine tender Dr. Diaz made aware and he agrees to consult. Treatment here included: Palvix Aspirin ? Based on my best medical judgment, made decision to admit for further evaluation and treatment. Clinical Information Provided by: patient and EMS Medical Records reviewed [facility] and EMS Meds/Rx considered, not ordered None Labs/Rad/Tests considered, not ordered None Chronic Illness/Social Conditions which may negatively complicate care or outcome(s)-explain: None or not applicable EKG Interpretation EKG #1: EKG Interpretation: As noted above Labs Labs: see narrative above Imaging Imaging interpretation: see narrative above Medication Administration(s) Medication Administration History Labetalol HCl (Labetalol Inj 5 Mg/Ml Vial 4 Ml) 10 mg IVP Q15M PRN PRN Reason: hypertension Ondansetron HCl (Ondansetron Inj 2 Mg/Ml Inj 2 Ml) 4 mg IVP Q4H PRN PRN Reason: NAUSEA OR VOMITING Stop: 08/18/25 06:26 Discontinued Medications Aspirin (Aspirin 81 Mg Chew) 81 mg PO X1 ONE Stop: 07/19/25 06:48 Last Admin: 07/19/25 06:52 Dose: 81 mg Documented By: MORIAH Clopidogrel Bisulfate (Clopidogrel Bisulfate 75 Mg Tablet) 300 mg PO X1 ONE Stop: 07/19/25 06:48 Last Admin: 07/19/25 06:52 Dose: 300 mg Documented By: MORIAH See above
[2025-07-19 06:32] LABS: Basophils # (Auto) 0.1 Thou/mm3 (0.0-0.2); Basophils % (Auto) 1 % (0-2.5); Eosinophils # (Auto) 0.9 Thou/mm3 (0.0-0.5); Eosinophils % (Auto) 9 % (0-10); Hematocrit 40.2 % (36.0-46.0); Hemoglobin 13.3 g/dL (12.0-16.0); Immature Granulocytes Auto 0.04 Thou/mm3 (0.00-0.00); Lymphocytes # (Auto) 2.9 Thou/mm3 (1.0-4.8); Lymphocytes % (Auto) 30 % (10-50); Mean Corpuscular HGB Conc 33.1 g/dl (31.0-37.0); Mean Corpuscular Hemoglobin 29.8 pg (25.0-35.0); Mean Corpuscular Volume 90 fL (80-100); Monocytes # (Auto) 1.0 Thou/mm3 (0.0-0.8); Monocytes % (Auto) 10 % (0-12); Neutrophils # (Auto) 4.9 Thou/mm3 (1.8-7.7); Neutrophils % (Auto) 50 % (37-80); Nucleated Red Blood Cell # 0.00 Thou/mm3 (0.00-0.00); Nucleated Red Blood Cell % 0 /100 WBC (0); Platelet Count 238 Thou/mm3 (140-440); RDW Standard Deviation 44.4 fL (36.4-46.3); Red Blood Count 4.46 Miln/mm3 (4.00-5.20); White Blood Count 9.8 Thou/mm3 (3.6-11.0)
--- NOTE | 2025-07-19 06:46 | PD.TNEURO ---
Tele Neuro Consultation Consultation Date 07/19/25 Most Recent Vital Signs Last Vital Signs Temp 98 F 07/19/25 06:29 Pulse 100 07/19/25 06:36 Resp 18 07/19/25 06:36 BP 168/87 H 07/19/25 06:29 Pulse Ox 96 07/19/25 06:29 O2 Del Method Room Air 07/19/25 06:29 Consultation Narrative [facility] Tele[facility]urology Consult Services Patient Name:???Rosi Coker Date of :???1940 Identification Number:??? Date of Service:???07/19/2025 06:15:17 Diagnosis:?R20.2 - Paresthesia of skin Impression: ?Rosi Coker is an 84 y/o F with a PMHx of HTN, HLD, colon cancer (in remission), s/p PPM, CHF who presents with L-sided paresthesias and L facial droop. Presentation is concerning for lacunar stroke. Our recommendations are outlined below. Recommendations: ?-stat CTA head/neck. Contact neurology again immediately if there are any acute findings. ?-clopidogrel 300mg + ASA 81mg once ?-ASA 81mg + clopidogrel 75mg x 20 days, then ASA monotherapy ?-neurochecks q4hrs ?-cardiac telemetry ?-permissive HTN x 24 hrs, goal BP<220/120 ?-MRI brain wo ?-Hgb A1c ?-atorvastatin 40mg, lipid panel ?-PT/OT ?-TTE Advanced Imaging: Advanced Imaging Deferred because: Advanced Imaging not obtained at this time. Reason: see impression Metrics: Last Known Well: 07/18/2025 18:30:00 Arrival Time: 07/19/2025 06:07:00 Activation Time: 07/19/2025 06:15:16 Initial Response Time: 07/19/2025 06:18:29Symptoms: L-sided paresthesias. Initial patient interaction: 07/19/2025 06:19:46 NIHSS Assessment Completed: 07/19/2025 06:23:22Patient is not a candidate for Thrombolytic. Thrombolytic Medical Decision: 07/19/2025 06:23:23Patient was not deemed candidate for Thrombolytic because of following reasons: LKW outside [address] Head: I personally reviewed all the CT images that were available to me and it showed: No acute intracranial abnormalities. Chronic microangiopathic ischemic changes. Primary Provider Notified of Diagnostic Impression and Management Plan on: 07/19/2025 06:43:51 History of Present Illness:Patient is a 84 year old Female. Patient was brought by private transportation with symptoms of L-sided paresthesias. Rosi Coker is an 84 y/o F with a PMHx of HTN, HLD, colon cancer (in remission), s/p PPM, CHF who presents with L-sided paresthesias and L facial droop. Pt says she went to bed at 1830 last night, woke up at 2000 and found she had L lower facial droop and some dysarthria. Pt also endorses L-sided paresthesias. Pt endorses generalized weakness, denies focal weakness, SULTANA, nausea/vomiting, aphasia. Pt endorses mild dizziness. Past Medical History: ?Hypertension ?Hyperlipidemia ?There is no history of Diabetes Mellitus ?There is no history of Stroke Medications: No Anticoagulant use? No Antiplatelet use Reviewed EMR for current medications Allergies:? Reviewed,NKDA Social History: Smoking: No Alcohol Use: No Drug Use: No Family History: There is no family history of premature cerebrovascular disease pertinent to this consultation ROS : 14 Points Review of Systems was performed and was negative except mentioned in HPI. Past Surgical History: There Is No Surgical History Contributory To Today?s Visit Examination: BP(168/87),?Pulse(106),?Blood Glucose(182) 1A: Level of Consciousness - Alert; keenly responsive?+ 0 1B: Ask Month and Age - Both Questions Right?+ 0 1C: Blink Eyes & Squeeze Hands - Performs Both Tasks?+ 0 2: Test Horizontal Extraocular Movements - Normal?+ 0 3: Test Visual [place] - No Visual Loss?+ 0 4: Test Facial Palsy (Use Grimace if Obtunded) - Minor paralysis (flat nasolabial fold, smile asymmetry)?+ 1 5A: Test Left Arm Motor Drift - No Drift for 10 Seconds?+ 0 5B: Test Right Arm Motor Drift - No Drift for 10 Seconds?+ 0 6A: Test Left Leg Motor Drift - No Drift for 5 Seconds?+ 0 6B: Test Right Leg Motor Drift - No Drift for 5 Seconds?+ 0 7: Test Limb Ataxia (FNF/Heel-Meyer) - No Ataxia?+ 0 8: Test Sensation - Mild-Moderate Loss: Less Sharp/More Dull?+ 1 9: Test Language/Aphasia - Normal; No aphasia?+ 0 10: Test Dysarthria - Mild-Moderate Dysarthria: Slurring but can be understood?+ 1 11: Test Extinction/Inattention - No abnormality?+ 0 NIHSS Score:?3 NIHSS Free Text :?Decreased sensation to light touch in L face, LUE, and LLE, L lower facial droop Pre-Morbid Modified [place] Scale: 3 Points = Moderate disability; requiring some help, but able to walk without assistance Spoke with :?Dr. Khan This consult was conducted in real time using interactive audio and video technology. Patient was informed of the technology being used for this visit and agreed to proceed. Patient located in hospital and provider located at home/office setting. Patient is being evaluated for possible acute neurologic impairment and high probability of imminent or life-threatening deterioration. I spent total of 31 minutes providing care to this patient, including time for face to face visit via telemedicine, review of medical records, imaging studies and discussion of findings with providers, the patient and/or family. Dr Jsutin Ward [facility] For Inpatient follow-up with [facility] physician please call [facility] at . As we are not an outpatient service for any post hospital discharge needs please contact the hospital for assistance. If you have any questions for the [facility] physicians or need to reconsult for clinical or diagnostic changes please contact us via [facility] at . Non-radiologist review of imaging performed to assist with emergent clinical decision-making. Remote physician workstations do not possess the same resolution, calibration, or diagnostic capabilities as hospital-based radiology reading stations, and formal radiologist read is necessary. Signature :Amena Ward
[2025-07-19 06:47] LABS: INR 1.0 (0.9-1.3); Partial Thromboplastin Time 25.3 Seconds (22.0-36.0); Prothrombin Time 10.7 Seconds (9.0-12.2)
[2025-07-19] MEDS: ASPIRIN 81 MG CHEW PO (06:52)
[2025-07-19] MEDS: CLOPIDOGREL BISULFATE 75 MG TABLET 300 MG PO (06:52)
[2025-07-19 07:02] LABS: B-Type Natriuretic Peptide 174 pg/mL (0-100)
[2025-07-19 07:55] LABS: Alanine Aminotransferase 10 U/L (10-49); Albumin, Serum 4.1 gm/dL (3.4-4.8); Albumin/Globulin Ratio 1.4 (1.2-2.2); Alkaline Phosphatase 105 U/L (46-116); Anion Gap 12 (7-16); Aspartate Amino Transferase 28 U/L (0-34); BUN/Creatinine Ratio 13 Ratio (12-20); Bilirubin,Total 1.1 mg/dL (0.3-1.2); Blood Urea Nitrogen 9 mg/dL (9-23); Calcium 9.0 mg/dL (8.3-10.6); Calcium (Corrected) 9.0 mg/dL (8.5-10.1); Carbon Dioxide 25.5 mMol/L (20.0-31.0); Chloride 103 mMol/L (98-107); Creatinine (Component) 0.7 mg/dL (0.6-1.3); Estimated Creatinine Clearance 44.5 mL/min (>60); Globulin 3.0 gm/dL (2.3-3.5); Glucose 169 mg/dL (74-106); Magnesium 1.7 mg/dL (1.6-2.6); Osmolality,Calculated 282 (275-295); Potassium 3.6 mMol/L (3.4-5.1); Sodium 140 mMol/L (136-145); Total Protein 7.1 gm/dL (5.7-8.2); eGFR > 60 See Note
[2025-07-19 07:57] LABS: Troponin I 1.076 ng/mL (0.0-0.045)
[2025-07-19 08:29] LABS: Collection Type, Urine Clean Catch
[2025-07-19 09:02] LABS: Amphetamine/Methamp Scrn,U Negative (Negative); Barbiturate Screen,Urine Negative (Negative); Benzodiazepines Screen,Urine Negative (Negative); Benzoylecgonine Screen, Ur Negative (Negative); Fentanyl Screen,Urine Negative (Negative); Opiate Screen,Urine Negative (Negative); THC Screen,Urine Negative (Negative)
[2025-07-19 09:09] LABS: Bacteria,Urine Rare; Bilirubin,Urine Negative (Negative); Blood,Urine Trace (Negative); Clarity,Urine Clear (Clear/Hazy); Color,Urine Yellow (Lt Yel-Yel); Culture Indicated,Urine Not Indicated; Glucose, Urine Negative (Negative); Ketones,Urine Trace (Negative); Leukocyte Esterase,Urine Positive (Negative); Nitrite,Urine Negative (Negative); PH,Urine 6.5 (5.0-7.0); Protein,Urine Negative (Neg - Trace); RBC,Urine 2 /hpf (0-3); Specific Gravity,Urine 1.013 (1.001-1.035); Squamous Epithelial Cell,Urine 3 /hpf (0-5); Urobilinogen,Urine 2.0 mg/dL (0.0-1.0); WBC,Urine 2 /hpf (0-5)
--- NOTE | 2025-07-19 10:58 | EKG_ITS ---
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
--- NOTE | 2025-07-19 11:53 | PD.IMCONS ---
HPI Data of Consult Primary Care Provider: Otilio Rizvi MD Consult Narrative History of present illness: This is 84 year old female with PMH of diabetes (no meds), HTN, HLD, colon cancer (in remission, s/p partial colectomy 12 years ago) s/p PPM in april pt seen in the ER with numbness of the face , possible fascial palsy - seen by tele neurology and deemed not a CVA as per ER physician pt seen in the ER says she still feels numb in the face troponin positive and cardiology consulted pt denies cardiac symptoms - no chest pain /sob/or palpitations pt had a pacemaker in april - cc:: cc: Meds Home Medications and Allergies Home Medications ?Medication ?Instructions ?Recorded ?Confirmed ?Type alendronate 35 mg tablet 35 mg PO QAM 05/07/25 05/07/25 History simvastatin 40 mg tablet 40 mg PO QDAY 05/07/25 05/07/25 History Allergies Allergy/AdvReac Type Severity Reaction Status Date / Time No Known Allergies Allergy Verified 07/19/25 06:10 Exam Vital Signs Temp Pulse Resp BP Pulse Ox O2 Del Method 98.1 F 92 18 160/81 H 96 Room Air 07/19/25 11:26 07/19/25 11:26 07/19/25 11:26 07/19/25 11:26 07/19/25 11:26 07/19/25 11:26 Routine HEENT Exam Head: Present normocephalic and atraumatic Eye: Present EOMI and PERRL ENT: Present mucous membranes moist Routine Neck Exam Neck: Present supple and trachea midline Routine Respiratory Exam Respiratory: Present chest non-tender, lungs clear, normal breath sounds and no resp distress Routine Cardiovascular Exam Cardiovascular: Present RRR Routine Abdominal Exam Abdominal: Present soft and normoactive bowel sounds Routine Extremities Exam Extremities: Present full ROM Routine Skin Exam Skin: Present intact, dry and warm Routine Neurological Exam Neurological: Present alert, oriented X3 and CN II-XII intact Routine Psychiatric Exam Psychiatric: Present normal affect and normal thought process Results Labs 07/19/25 06:25 07/19/25 07:15 Labs: Short CBC 07/19/25 Range/Units 06:25 WBC 9.8 (3.6-11.0) Thou/mm3 Hgb 13.3 (12.0-16.0) g/dL Hct 40.2 (36.0-46.0) % Plt Count 238 (140-440) Thou/mm3 BMP 07/19/25 07:15 Sodium 140 Potassium 3.6 Chloride 103 Carbon Dioxide 25.5 BUN 9 Creatinine 0.7 Glucose 169 H Calcium 9.0 Cardiac Enzymes 07/19/25 Range/Units 07:15 Troponin I 1.076 H* (0.0-0.045) ng/mL Liver Function 07/19/25 Range/Units 07:15 Total Bilirubin 1.1 (0.3-1.2) mg/dL AST 28 (0-34) U/L ALT 10 (10-49) U/L Alkaline Phosphatase 105 (46-116) U/L Albumin 4.1 (3.4-4.8) gm/dL Urine 07/19/25 Range/Units 07:30 Urine Color Yellow (Lt Yel-Yel) Urine Clarity Clear (Clear/Hazy) Urine pH 6.5 (5.0-7.0) Ur Specific [place] 1.013 (1.001-1.035) Urine Protein Negative (Neg - Trace) Urine Glucose (UA) Negative (Negative) Assessment and Plan Assessment and plan (1) History of permanent cardiac pacemaker placement: Status: Acute (2) Peripheral edema: Status: Acute (3) Aortic stenosis: Status: Acute (4) Hypertension: Status: Acute (5) Complete heart block: Status: Acute (6) Elevated troponin: Status: Acute Additional Assessment & Plan Additional Plan: pt denes cardiac symptoms elevated troponin noted pt also has pacemaker and moderate continue neuro monitoring will inform
--- NOTE | 2025-07-19 12:46 | XR_ITS ---
Examination: Duplex scan of the upper extremity, unilateral right Date and time of exam: July 19, 2025, 1336 hours INDICATIONS: Clinical suspicion clot in the jugular vein Technique: Duplex scan of the extremity veins using B-mode/grayscale imaging and Doppler spectral analysis and color flow Attention is directed to internal echogenicity, compression and augmentation involving these veins, color flow assessment, spectral analysis Findings: Major deep venous structures in the extremity demonstrate normal course and caliber. There is no evidence of deep vein thrombosis, including open jugular vein Normal color flow and spectral analysis Impression: Negative for DVT..
[2025-07-19 13:51] LABS: Troponin I 1.168 ng/mL (0.0-0.045)
[2025-07-19 14:15] LABS: Troponin I 1.185 ng/mL (0.0-0.045)
--- NOTE | 2025-07-19 14:30 | PD.RESCONSUL ---
HPI Data of Consult Patient: known to practice within the last 3 years Consult date: 07/19/25 Primary Care Provider: Otilio Rizvi MD Consult Narrative Reason for consult: Elevated troponin History of present illness: Ms. 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 Patient reported that she went to bed last night around 6:30 PM, woke up around 8 PM yesterday night and noticed some left-sided facial droop and some dysarthria. Patient reported that she does not feel this is her normal voice and she is slurring, complains of some left-sided weakness and tingling sensation in the left arm and leg, otherwise patient does report some palpitations at times on and off episodes of heart racing . She denies any chest pain, chest pressure, shortness of breath, orthopnea, PND, dizziness, syncope, presyncope and falls. ED course: Vitals on presentation significant for blood pressure 168/87, labs pertinent for glucose 169, troponin 1.076, BNP 174. Urinalysis shows rare bacteria, leukocyte esterase positive, WBC 2. Urine drug screen negative, CBC unremarkable, CMP otherwise unremarkable except for findings as above. Stroke alert initiated in the ED chest x-ray in ED shows mild vascular congestion, head CT negative for acute hemorrhage mass effect or midline shift. CTA head and neck shows calcification of internal carotid arteries, some filling defects in bilateral jugular veins, no large vessel occlusion noted. EKG in ED shows paced rhythm, rate 96 and right jugular vein duplex negative for DVT Cardiology consulted for elevated troponin. cc:: cc: Review of Systems Review of Systems Systems Reviewed: All systems reviewed, normal except as documented Past Medical History Past Medical History Comments PMH COMMENT: Past Medical History: as above Family History: No known family history of heart disease, NM, or stroke. Surgical History: Partial colectomy, cholecystectomy. Social History: Denies history of smoking, denies current alcohol use, denies recreational drug use Exam Vital Signs Temp Pulse Resp BP Pulse Ox O2 Del Method 98.1 F 92 18 160/81 H 96 Room Air 07/19/25 11:07/19/25 11:07/19/25 11:07/19/25 11:07/19/25 11:07/19/25 11: Narrative Exam Physical Exam General: Awake and in no acute distress. Conversational and non-toxic appearing. Slurring of speech noted. HEENT: Normocephalic, atraumatic, mucous membranes moist. Left-sided facial droop noted. Heart: Irregular paced rhythm, positive murmur mitral region and aortic area. Lungs: Mild bilateral crackles Abdomen: Soft, nondistended, nontender, positive bowel sounds. ?No guarding or rebound tenderness. Neurologic: Alert and oriented x3, patient able to move all 4 extremities. Strength 4/5 in left upper and lower extremity, decreased relative to right side. Extremities: No edema. Skin: No rash or ecchymoses. Results Labs 07/19/25 06:25 07/19/25 07:15 Labs: Short CBC 07/19/25 Range/Units 06:25 WBC 9.8 (3.6-11.0) Thou/mm3 Hgb 13.3 (12.0-16.0) g/dL Hct 40.2 (36.0-46.0) % Plt Count 238 (140-440) Thou/mm3 BMP 07/19/25 07:15 Sodium 140 Potassium 3.6 Chloride 103 Carbon Dioxide 25.5 BUN 9 Creatinine 0.7 Glucose 169 H Calcium 9.0 Cardiac Enzymes 07/19/25 07/19/25 07/19/25 Range/Units 07:15 11:37 13:30 Troponin I 1.076 H* 1.168 H* 1.185 H* (0.0-0.045) ng/mL Liver Function 07/19/25 Range/Units 07:15 Total Bilirubin 1.1 (0.3-1.2) mg/dL AST 28 (0-34) U/L ALT 10 (10-49) U/L Alkaline Phosphatase 105 (46-116) U/L Albumin 4.1 (3.4-4.8) gm/dL Urine 07/19/25 Range/Units 07:30 Urine Color Yellow (Lt Yel-Yel) Urine Clarity Clear (Clear/Hazy) Urine pH 6.5 (5.0-7.0) Ur Specific [place] 1.013 (1.001-1.035) Urine Protein Negative (Neg - Trace) Urine Glucose (UA) Negative (Negative) Quality Measures Quality Measures stroke Suspected type of Stroke: Non Acute Tenecteplase given: Reason(s) Tenecteplase not given: Outside the time window not given Rehab services: PT evaluation ordered and Speech Language Pathology eval ordered VTE Prophylaxis: not ordered Antithrombotic by day 2:: not indicated (describe) Statin ordered: >75 y/o moderate or high intensity dose Anticoagulation ordered for A-fib or flutter (current or hx): not indicated Advance care planning discussed with:: patient Medications Home Medications and Allergies Home Medications ?Medication ?Instructions ?Recorded ?Confirmed ?Type alendronate 35 mg tablet 35 mg PO QAM 05/07/25 07/19/25 History simvastatin 40 mg tablet 40 mg PO QDAY 05/07/25 07/19/25 History bumetanide 1 mg tablet 1 mg PO QDAY 07/19/25 07/19/25 History losartan 100 mg tablet 100 mg PO QDAY 07/19/25 07/19/25 History Allergies Allergy/AdvReac Type Severity Reaction Status Date / Time No Known Allergies Allergy Verified 07/19/25 06:10 Visit Medications Labetalol HCl (Labetalol Inj 5 Mg/Ml Vial 4 Ml) 10 mg IVP Q15M PRN PRN Reason: hypertension Ondansetron HCl (Ondansetron Inj 2 Mg/Ml Inj 2 Ml) 4 mg IVP Q4H PRN PRN Reason: NAUSEA OR VOMITING Stop: 08/18/25 06:26 Discontinued Medications Aspirin (Aspirin 81 Mg Chew) 81 mg PO X1 ONE Stop: 07/19/25 06:48 Last Admin: 07/19/25 06:52 Dose: 81 mg Clopidogrel Bisulfate (Clopidogrel Bisulfate 75 Mg Tablet) 300 mg PO X1 ONE Stop: 07/19/25 06:48 Last Admin: 07/19/25 06:52 Dose: 300 mg Assessment & Plan Plan Assessment and Plan: Summary: Ms. 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 Patient admitted for CVA workup and cardiology consulted for Elevated troponin. #ACS Workup, NSTEMI likely Type II vs less likely type I #Elevated Troponin Presented with chief complaint of left-sided facial droop, paresthesias and dysarthria. Also complains of some left-sided weakness and tingling sensation in the left arm and leg. Denies any chest pain, otherwise patient does report some palpitations at times on and off episodes of heart racing . EKG in ED shows paced rhythm, rate 96. Troponin on presentation 1.076 -> 1.168 -> 1.185 ART ACS Risk and Mortality Calculator: 123 points; 8 % Probability of from admission to 6 months HEART Score for Major Cardiac Events: 5 points Risk of MACE of 12-16.6%. CHRISTIAN Risk Score for UA/NSTEMI: 3 points, 13% risk at 14 days of: all-cause mortality, new or recurrent NM, or severe recurrent ischemia requiring urgent revascularization. Recommendations: Patient was given Plavix 300 mg p.o. x 1 and aspirin 81 mg p.o. x 1 per teleneuro recommendations. Continue DAPT per neurology recommendations. High suspicion of stroke, once patient cleared by neurology/MRI negative for CVA will consider heparin gtt., MRI ordered. Trend troponin until they downtrend. Obtain echocardiogram to rule out regional wall abnormalities Patient presented with CVA, no chest pain elevated troponin likely secondary to demand ischemia in setting of possible CVA. Follow lipid panel, A1c and TSH in a.m. #CVA Workup, left sided facial droop and weakness #Status Post Cleary Dual Chamber Pacemaker (04/2025), history of complete heart block #Concern of Atrial Fibrillation #Moderate aortic stenosis #Severe MAC with mild to moderate MS - Severe thickening and calcification of the mitral valve leaflets and chordae tendonae Patient presented with left-sided facial droop, paresthesia and dysarthria. Left upper extremity and lower extremity weakness noted on physical exam, left-sided facial droop noted. EKG shows paced rhythm, there is suspicion of atrial fibrillation considering patient does have increased LA diameter secondary to severe MAC/mild to moderate mitral stenosis. At bedside patient noted to have irregular rate. Patient had pacemaker placed in April due to history of sick sinus syndrome, complete heart block and symptomatic bradycardia. Patient completed antibiotic treatment after. Was seen in office outpatient. 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 Ventricular capturing threshold 0.75 Volts @ 0.4 ms, Sensing 8.9 millivolts. Lead impedance 710 ohms. The patient is programmed DDDR mode, baseline rate of 60 bpm, maximum track rate 130 beats bpm, Paced and Sensed AV delay of 180 ms. Echo 05/07/25 showed normal LV size. Hyperdynamic LV function 60 to 70%. Normal RV size and function. RVSP 30 mmHg with RAP 3. Mild pulmonary hypertension. Severe MAC. Severe thickening and calcification of the mitral valve leaflets as well as as well as the chordae tendonae. Mild to moderate mitral stenosis with a mean gradient of 67 mmHG. Moderate aortic stenosis with a V-max 2.0 with a mean gradient of around 20 mmHg. Mild mitral and tricuspid regurgitation. Trace pericardial effusion without cardiac tamponade. Recommendations: Will interrogate pacemaker in a.m., will assess for underlying atrial fibrillation Will consider heparin GTT if suspicion of atrial fibrillation and neurology is okay with heparin gtt./no contraindications Keep potassium greater than 4 and magnesium greater than 2 at all times Patient's pacemaker was placed more than 6 weeks ago, no contraindications to MRI. Device is MRI compatible. Follow repeat echocardiogram #Mild vascular congestion #Chronic congestive diastolic heart failure with preserved ejection fraction, EF 60-70% Mild vascular congestion noted on chest x-ray, patient stable on room air. - Consider resuming home dose Lasix 20 mg p.o. daily #Hypertension Patient's blood pressure elevated on presentation, currently undergoing CVA workup, permissive hypertension #Hyperlipidemia Resumed home dose atorvastatin #Type 2 DM Management per primary team Thank you for the consult and allowing to participate in the care of the patient. Cardiology will continue to follow. Case discussed with Attending Physician Dr. Jose C Granados MD Internal Medicine PGY-2 Disclaimer: This note was dictated by speech recognition. Minor errors in hyperbaric nurse may be present due to voice recognition software. Attending Provider Attestation/Addendum I have personally seen and examined the patient separately on the above date of service and discussed the plan of care with the resident. I reviewed the resident Dr. Nash Granados consultation progress note and agree with the resident findings and plan in the note above and have also edited the documentation to reflect my findings and plan. 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 Patient admitted for CVA workup and cardiology consulted for Elevated troponin. Patient denies any consistent chest pressure. EKG showed paced rhythm. He does no other cardiac complaints except for the neurological complaints as mentioned above. On examination patient does have left-sided facial droop, also mild left-sided weakness 4-5/5 left upper and lower extremity. CT head was negative but patient will need an MRI to rule out acute stroke. Patient has a pacemaker in which was placed more than 6 weeks ago. Cleary new generation pacemaker has both leads as well as generator or all MRI compatible. Aspirin, high intensity statin and losartan or ARB if blood pressure is high. Neurology to be consulted for further evaluation. Heart previous echo showed patient is severely of massively dilated LA secondary to mild to moderate mitral stenosis. Patient does have a pacemaker and will evaluate for any underlying atrial fibrillation which could be causing any kind of embolic stroke. Patient does not have a history of previous atrial fibrillation and did have complete heart block. Pacemaker check and will reach out to [employer] for the same. Troponins are essentially flat at 1.0-1.1. Troponin elevation mostly secondary to type II NSTEMI in the setting of supply/demand mismatch given the patient's history of possible stroke along with underlying mild to moderate aortic stenosis. A repeat echo has been ordered to rule out any Regional wall motion abnormalities. Patient continues to denies any kind of cardiac symptoms including chest pain or chest pressure. Management of rest of the medical conditions as per primary team and other consultants. Thank you for the consult and allowing me to participate in the care of the patient. Cardiology will continue to follow. Jose C Diaz M.D. Interventional Cardiology.
--- NOTE | 2025-07-19 14:35 | ECHO_ITS ---
Patient Info Name: Rosi Coker Age: 84 years : 1940 Gender: Female Ht: 152 cm Wt: 54 kg BSA: 1.53 m2 BP: 160 / 81 mmHg HR: 92 bpm Exam Date: 07/19/2025 3:24 PM Admit Date: 07/19/2025 Site: [facility] Room Number: ED18 Patient Status: E Exam Type: CA echo doppler complete Instructor Robotics: Yessy Cuevas Ordering Physician: Nash Granados Study Info Indications ACS Workup - Primary Location: SERX Left Ventricular Outflow Tract Name Value Normal LVOT 2D LVOT Diameter 1.9 cm LVOT Doppler LVOT Peak Velocity 96 cm/s LVOT Mean Gradient 2 mmHg LVOT VTI 17 cm LVOT VTI/AV VTI Ratio 0.5 LVOT Stroke Volume 47 ml Pulmonic Valve Name Value Normal PV Doppler PV Peak Velocity 110 cm/s PV Regurgitation Doppler SC Peak End Diastolic Velocity 144 cm/s Mitral Valve Name Value Normal MV Doppler MV Mean Gradient 7 mmHg MV Decel [place] 1,101 cm/s2 MV PHT 49 ms MV Area (PHT) 4.5 cm2 4.0-5.0 MV Area (Cont Eq VTI) 1.3 cm2 MV Regurgitation Doppler MV EROA (PISA) 0.43 cm2 MR Volume (PISA) 84 ml MV Diastolic Function MV E Peak Velocity 186 cm/s Tricuspid Valve Name Value Normal TV Regurgitation Doppler TR Peak Velocity 267 cm/s Estimated PAP/RSVP RA Pressure 3 mmHg <=5 PA Systolic Pressure 32 mmHg <36 RV Systolic Pressure 32 mmHg <36 Aortic Valve Name Value Normal AV 2D/MM AV Cusp Sep (MM) 1.0 cm AV Doppler AV Peak Velocity 195 cm/s AV Mean Gradient 7 mmHg AV VTI 31 cm AV Area (Cont Eq VTI) 1.5 cm2 >=3.0 AV Area (Cont Eq Inocencio) 1.4 cm2 AV DI (Inocencio) 0.49 AV Regurgitation 2D LVOT Area 2.8 cm2 Ventricles Name Value Normal LV Dimensions 2D/MM IVS Diastolic Thickness (2D) 0.7 cm 0.6-0.9 LVID Diastole (2D) 3.9 cm 3.8-5.2 LVIW Diastolic Thickness (2D) 1.2 cm 0.6-0.9 LVID Systole (2D) 2.5 cm 2.2-3.5 LVOT Diameter 1.9 cm LV Mass (2D Cubed) 113.58 g 67.00-162.00 LV Mass Index (2D Cubed) 74 g/m2 43-95 Relative Wall Thickness (2D) 0.62 <=0.42 IVS/LVIW Diastolic Thickness (2D) 0.58 0.00-1.50 LV Fractional Shortening/Ejection Fraction 2D/MM LV Fractional Shortening (2D) 36 % 27-45 LV EF (2D Teichholz) 66 % Atria Name Value Normal LA Dimensions LA Volume (4C A-L) 74 ml LA Volume (BP A-L) 79 ml Left Ventricle Left ventricular chamber dimension is normal. Left ventricular systolic function is normal with visually estimated ejection fraction of 60-65%. There is concentric remodeling noted in the left ventricle. Left ventricular segmental wall motion is normal. There is grade I diastolic dysfunction in the left ventricle. Right Ventricle Right ventricular chamber dimension is normal. Right ventricular systolic function is normal. Left Atrium Left atrial chamber dimension is normal. Right Atrium Right atrial chamber dimension is normal. Aortic Valve The aortic valve is trileaflet. There is moderate aortic valve sclerosis. There is mild aortic valve stenosis with a peak velocity of 195 cm/s, mean gradient of 7 mmHg, and aortic valve area of 1.5 cm2. There is no aortic valve regurgitation. Pulmonic Valve The pulmonic valve is normal. There is no pulmonic valve stenosis. There is mild pulmonic regurgitation. Mitral Valve The mitral valve has thickened leaflets. There is mild to moderate mitral valve stenosis. There is moderate mitral valve regurgitation. Tricuspid Valve The tricuspid valve leaflets are normal. There is no tricuspid valve stenosis. There is mild tricuspid valve regurgitation. No pulmonary hypertension, estimated pulmonary arterial systolic pressure is 32 mmHg and systemic blood pressure of 160 mmHg in systole. Pericardium/Pleural There is trivial pericardial effusion with no tamponade. No pleural effusion visualized. Inferior Vena Cava Normal inferior vena cava with >50% collapse upon inspiration consistent with normal right atrial pressure, 3 mmHg. Aorta The aortic measurements are indexed to age and body surface area. The aortic root at the sinus of Valsalva is not well visualized. The prox ascending aorta is not well visualized. Summary 1. Left ventricle size is normal and systolic function is normal. Estimated ejection fraction is 60-65%. There is grade I diastolic dysfunction. 2. Right ventricle chamber size is normal and systolic function is normal. Estimated RVSP is 32 mmHg with RAP 3. Estimated mild PHTN. 3. There is mild aortic valve stenosis and no regurgitation. Possibly under estimated. 4. There is mild to moderate mitral valve stenosis and moderate regurgitation. Mean gradient of 7mmHg. Severe MAC. Severe thickening and calcification of the mitral valve leaflets as well as the chordae tendon knee. 5. There is mild tricuspid and pulmonic valve regurgitation. 6. There is trivial pericardial effusion with no tamponade. Report Signatures Finalized by Jose C Diaz on 07/19/2025 10:29 PM
--- NOTE | 2025-07-19 16:59 | PD.NEPHHP ---
Documentation for date of: 07/19/25 History of Present Illness History of Present Illness Chief complaint: Left facial droop History of present illness: Informant daughter Ms. Coker is a 84-year-old female with past medical history of hypertension, dyslipidemia, diabetes complete heart block status post Cleary dual chamber pacemaker (04/2025-Dr. 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 Patient reported that she went to bed last night around 6:30 PM, woke up around 8 PM yesterday night and noticed some left-sided facial droop and some dysarthria. Patient reported that she does not feel this is her normal voice and she is slurring, complains of some left-sided weakness and tingling sensation in the left arm and leg, otherwise patient does report some palpitations at times on and off episodes of heart racing . She denies any chest pain, chest pressure, shortness of breath, orthopnea, PND, dizziness, syncope, presyncope and falls. ED course: Vitals on presentation significant for blood pressure 168/87, labs pertinent for glucose 169, troponin 1.076, BNP 174. Urinalysis shows rare bacteria, leukocyte esterase positive, WBC 2. Urine drug screen negative, CBC unremarkable, CMP otherwise unremarkable except for findings as above. Stroke alert initiated in the ED chest x-ray in ED shows mild vascular congestion, head CT negative for acute hemorrhage mass effect or midline shift. CTA head and neck shows calcification of internal carotid arteries, some filling defects in bilateral jugular veins, no large vessel occlusion noted. EKG in ED shows paced rhythm, rate 96 and right jugular vein duplex negative for DVT. Telemetry strip showed questionable A-fib paroxysmal although difficult to assess due to her paced rhythm. Patient was seen by teleneurology for possible stroke and recommended MRI. Cardiology was consulted for mild elevation in troponin. Patient asymptomatic with any chest pain or shortness of breath. She was given 1 dose of Plavix and aspirin in the ED. And admitted to telemetry. Home medications included Tylenol, alendronate, Bumex, losartan, simvastatin Review of Systems Review of Systems Narrative Review of Systems: CONSTITUTIONAL: Patient denies any fever, chills. Complaining of fatigue HEENT: Denies any visual disturbances or hearing problems. CARDIOVASCULAR: Patient denies any chest pain, shortness of breath, swelling in the lower extremities. PULMONARY: Patient denies any shortness of breath, cough. GASTROINTESTINAL: Patient denies any abdominal pain, constipation, nausea, vomiting, diarrhea. GENITOURINARY: Patient denies any urinary symptoms of burning or frequency or hematuria, denies any form in the urine. SKIN: Denies any rash. MUSCULOSKELETAL: Denies any muscular skeletal problems of joint pains. NEUROLOGICAL: Complaining of left facial droop, speech impairment, left-sided weakness PSYCHIATRIC: Denies any depression or anxiety. LYMPHATICS : No lymphadenopathy Past Medical History Past Medical History NEUROLOGIC: Negative Neurological Disorders CARDIAC: Positive Cardiac Disorders, Hypercholesterolemia, Congestive Heart Failure and Hypertension RESPIRATORY: Negative Respiratory Disorders or Chronic Obstructive Pulmonary Disease (COPD) GASTROINTESTINAL: Positive Gall Bladder Disease and Colorectal Cancer GENITOURINARY: Negative Genitourinary Disorders or Renal Disease MUSCULOSKELETAL: Positive Musculoskeletal Disorders, Arthritis, Osteoporosis and Carpal Tunnel Syndrome (w/surgery bilaterally) ENT: Negative History of ENT Problems ENDOCRINE: Negative Diabetes Mellitus Type 1 or Diabetes Mellitus Type 2 HEMATOLOGIC: Negative Blood Disorders PSYCHO/SOCIAL: Positive Anxiety OTHER HISTORY: Positive Hospitalization, Measles and Colorectal Cancer; Negative Autoimmune Disease, Falls, Blood Transfusions, Organ Transplant or MRSA Family History FAMILY HISTORY: Negative Family Psychiatric Problems, Family Respiratory Disorders, Family Cardiac Disorders, Family Gastrointestinal Problems or Family Cancer Surgical History SURGICAL: Positive Cardiac Surgery, Pacemaker, Abdominal Surgery and Bowel Surgery; Negative Organ Transplant Social History SMOKING STATUS: Never smoker Past Medical History Comments PMH COMMENT: Past Medical History: as above Family History: No known family history of heart disease, UT, or stroke. Surgical History: Partial colectomy, cholecystectomy. Social History: Denies history of smoking, denies current alcohol use, denies recreational drug use Meds Home Medications and Allergies Home Medications ?Medication ?Instructions ?Recorded ?Confirmed ?Type alendronate 35 mg tablet 35 mg PO QAM 05/07/25 07/19/25 History simvastatin 40 mg tablet 40 mg PO QDAY 05/07/25 07/19/25 History bumetanide 1 mg tablet 1 mg PO QDAY 07/19/25 07/19/25 History losartan 100 mg tablet 100 mg PO QDAY 07/19/25 07/19/25 History Allergies Allergy/AdvReac Type Severity Reaction Status Date / Time No Known Allergies Allergy Verified 07/19/25 06:10 Exam Vital Signs Temp Pulse Resp BP Pulse Ox O2 Del Method 36.7 C 92 18 160/81 H 96 Room Air 07/19/25 11:07/19/25 11:07/19/25 11:07/19/25 11:07/19/25 11:07/19/25 11:26 Narrative Exam GENERAL APPEARANCE: Patient seems to be comfortable, adequately hydrated and nourished. HEENT: Patient definitely has a left facial droop NECK: Neck supple, no JVD or bruit CARDIOVASCULAR: Heart regular, 3/6 murmurs. Pacemaker noted on the left chest LUNGS/CHEST: Chest clear to auscultation. No rales, rhonchi, wheezing ABDOMEN: Soft, nontender, nondistended. No masses. Normal bowel sounds. EXTREMITIES: No edema, clubbing or cyanosis. SKIN: Skin exam normal without any rashes MUSCULOSKELETAL: Musculoskeletal exam normal PSYCHIATRIC: Normal mood, affect LYMPHATICS: No lymphadenopathy noted NEUROLOGICAL : Left facial droop with left-sided weakness noted Results: Labs 07/21/25 05:02 07/21/25 05:02 Labs: Short CBC 07/19/25 Range/Units 06:25 WBC 9.8 (3.6-11.0) Thou/mm3 Hgb 13.3 (12.0-16.0) g/dL Hct 40.2 (36.0-46.0) % Plt Count 238 (140-440) Thou/mm3 BMP 07/19/25 07:15 Sodium 140 Potassium 3.6 Chloride 103 Carbon Dioxide 25.5 BUN 9 Creatinine 0.7 Glucose 169 H Calcium 9.0 Cardiac Enzymes 07/19/25 07/19/25 07/19/25 Range/Units 07:15 11:37 13:30 Troponin I 1.076 H* 1.168 H* 1.185 H* (0.0-0.045) ng/mL Liver Function 07/19/25 Range/Units 07:15 Total Bilirubin 1.1 (0.3-1.2) mg/dL AST 28 (0-34) U/L ALT 10 (10-49) U/L Alkaline Phosphatase 105 (46-116) U/L Albumin 4.1 (3.4-4.8) gm/dL Urine 12/26/25 Range/Units 07:30 Urine Color Yellow (Lt Yel-Yel) Urine Clarity Clear (Clear/Hazy) Urine pH 6.5 (5.0-7.0) Ur Specific [place] 1.013 (1.001-1.035) Urine Protein Negative (Neg - Trace) Urine Glucose (UA) Negative (Negative) Assessment & Plan Assessment and plan (1) Acute CVA (cerebrovascular accident): Status: Acute Assessment and plan: Patient seems to have left facial droop with left-sided weakness. CT brain and CTA negative. Will go proceed with MRI once okayed by cardiology. Did receive a dose of aspirin and Plavix in the ED. Suspect embolic stroke as patient seems to have paroxysmal atrial fibrillation on youth nutritional monitor per cardiology. (2) Elevated troponin: Status: Acute Assessment and plan: Patient did not complain of any chest pain. Dr. Estephania Mcgarry was consulted. Recent pacemaker placement. (3) History of permanent cardiac pacemaker placement: Status: Acute Assessment and plan: Status post recent pacemaker placement which will be interrogated by cardiology. (4) Aortic stenosis: Status: Chronic Assessment and plan: Severe aortic stenosis. Was on Bumex at home will be resumed (5) Hypertension: Status: Chronic Assessment and plan: Will do permissive hypertension for now due to stroke (6) Diabetes: Status: Acute Assessment and plan: Accu-Chek, sliding scale. Check A1c (7) Hyperlipidemia: Status: Acute Assessment and plan: Switch simvastatin to atorvastatin Additional Assessment & Plan Additional Plan: Estimated length of stay 2 to 3 days DVT prophylaxis hold due to stroke. GI prophylaxis not needed Discharge disposition to rehab CODE STATUS full code Quality Measures Quality Measures stroke Suspected type of Stroke: Non Acute Tenecteplase given: Reason(s) Tenecteplase not given: Stroke severity too mild (non-disabling) (Patient was not having a stroke) not given Rehab services: PT evaluation ordered and Speech Language Pathology eval ordered VTE Prophylaxis: not ordered Antithrombotic by day 2:: ordered Statin ordered: >75 y/o moderate or high intensity dose Anticoagulation ordered for A-fib or flutter (current or hx): ordered Advance care planning discussed with:: patient
[2025-07-19 17:35] LABS: Glucose Estimated Average 120 mg/dL (80-131); Hemoglobin A1C 5.8 % Hgb (4.8-6.0)
[2025-07-19] MEDS: POTASSIUM CHL 10 mEq IVPB 10 MEQ/100 ML BAG 100 MEQ IV ×4 (17:36→21:48)
[2025-07-19] MEDS: Magnesium Sulfate 4 GM Ivpb 4 GM/50 ML BAG IV (17:36)
[2025-07-19] MEDS: ATORVASTATIN CALCIUM 20 MG TABLET 40 MG PO (20:38)
[2025-07-19 22:44] LABS: Troponin I 0.910 ng/mL (0.0-0.045)
[2025-07-20] VITALS (10 sets, daily range): BP systolic 140–172; BP diastolic 77–91; PULSE 77–100; RESP 16–25; TEMP 36.1–37.2; O2SAT 91–98
--- NOTE | 2025-07-20 | XR_ITS ---
Examinations: MRI Brain without intravenous contrast. MRA brain without intravenous contrast. MRA carotids without intravenous contrast 3-D vascular reconstructions Date and time of exam: July 20, 2025, 1500 hours INDICATIONS: Stroke alert yesterday, onset focal neurologic deficit Technique: Multiple axial and sagittal images of the brain have been obtained MRA brain carotid images without contrast obtained, including 3-D postprocessing, vascular maximum intensity projection images Findings: [place] is not enlarged. The optic chiasm and infundibular stalk are not remarkable. Prepontine and interpeduncular cisterns are not enlarged. No localized enlargement of the medulla or kristie. Fourth ventricle and cerebellar tonsils normal in position. Subacute hemorrhage is not seen. Fourth ventricle is midline. Mass in the cerebellopontine angle region is not evident. 7th and 8th nerve complexes exhibits symmetry. Globes are symmetrical with no retro-orbital mass. Increased white matter signal prominent Diffusion-weighted images demonstrate multiple embolic type foci of restricted diffusion, left cerebellar hemisphere, left temporal lobe, right temporal lobe, bilateral basal ganglia, right parietal lobe, right caudate nucleus, right frontal lobe, bilateral high parietal lobes Mass-effect upon the ventricular system is not identified. MRA carotid images no critical carotid stenoses. MRA brain images no large vessel occlusions Impression: Negative for acute hemorrhage or mass effect or midline shift Multiple acute embolic type infarcts as above
[2025-07-20] MEDS: ACETAMINOPHEN 325 MG TABLET 650 MG PO (05:31)
[2025-07-20 06:11] LABS: Basophils # (Auto) 0.1 Thou/mm3 (0.0-0.2); Basophils % (Auto) 1 % (0-2.5); Eosinophils # (Auto) 0.7 Thou/mm3 (0.0-0.5); Eosinophils % (Auto) 9 % (0-10); Hematocrit 41.9 % (36.0-46.0); Hemoglobin 14.0 g/dL (12.0-16.0); Immature Granulocytes Auto 0.04 Thou/mm3 (0.00-0.00); Lymphocytes # (Auto) 2.2 Thou/mm3 (1.0-4.8); Lymphocytes % (Auto) 25 % (10-50); Mean Corpuscular HGB Conc 33.4 g/dl (31.0-37.0); Mean Corpuscular Hemoglobin 30.2 pg (25.0-35.0); Mean Corpuscular Volume 90 fL (80-100); Monocytes # (Auto) 0.8 Thou/mm3 (0.0-0.8); Monocytes % (Auto) 10 % (0-12); Neutrophils # (Auto) 4.7 Thou/mm3 (1.8-7.7); Neutrophils % (Auto) 55 % (37-80); Nucleated Red Blood Cell # 0.00 Thou/mm3 (0.00-0.00); Nucleated Red Blood Cell % 0 /100 WBC (0); Platelet Count 240 Thou/mm3 (140-440); RDW Standard Deviation 45.4 fL (36.4-46.3); Red Blood Count 4.64 Miln/mm3 (4.00-5.20); White Blood Count 8.5 Thou/mm3 (3.6-11.0)
[2025-07-20 06:25] LABS: Glucose Estimated Average 120 mg/dL (80-131); Hemoglobin A1C 5.8 % Hgb (4.8-6.0)
[2025-07-20 06:52] LABS: Alanine Aminotransferase 9 U/L (10-49); Albumin, Serum 4.1 gm/dL (3.4-4.8); Albumin/Globulin Ratio 1.3 (1.2-2.2); Alkaline Phosphatase 97 U/L (46-116); Anion Gap 14 (7-16); Aspartate Amino Transferase 27 U/L (0-34); BUN/Creatinine Ratio 12 Ratio (12-20); Bilirubin,Total 1.6 mg/dL (0.3-1.2); Blood Urea Nitrogen 7 mg/dL (9-23); Calcium 9.1 mg/dL (8.3-10.6); Calcium (Corrected) 9.1 mg/dL (8.5-10.1); Carbon Dioxide 20.5 mMol/L (20.0-31.0); Cardiac Risk Estimate 2.4 RATIO (3.7-5.6); Chloride 105 mMol/L (98-107); Cholesterol 123 mg/dL (132-200); Creatinine (Component) 0.6 mg/dL (0.6-1.3); Estimated Creatinine Clearance 57.5 mL/min (>60); Globulin 3.1 gm/dL (2.3-3.5); Glucose 125 mg/dL (74-106); HDL Cholesterol 52 mg/dL (40-60); LDL Cholesterol,Calculated 56 mg/dL (0-130); Osmolality,Calculated 276 (275-295); Potassium 4.2 mMol/L (3.4-5.1); Sodium 139 mMol/L (136-145); Thyroid Stimulating Hormone 1.74 uIU/mL (0.55-4.78); Total Protein 7.2 gm/dL (5.7-8.2); Triglycerides 74 mg/dL (30-150); eGFR > 60 See Note
[2025-07-20 06:54] LABS: Troponin I 0.798 ng/mL (0.0-0.045)
--- NOTE | 2025-07-20 08:34 | ESPR_ITS ---
Documentation for date of: 07/20/25 Subjective Subjective Interval history: Patient seen and examined at bedside. Patient denies any chest pain, has left-sided facial droop reports that weakness and slurring of speech has improved Pacemaker interrogation performed at bedside, report generated and transmitted, confirmed with [employer] direct marketing representative, pending fax. MRI clearance signed and given to central supply tech. Patient scheduled for MRI today. Discussed with neurology, neurology recommends MRI prior to initiation of heparin drip. Exam Vital Signs Temp Pulse Resp BP Pulse Ox O2 Del Method 97.7 F 91 16 140/79 H 97 Room Air 07/20/25 04:00 07/20/25 04:00 07/20/25 04:00 07/20/25 04:00 07/20/25 04:00 07/20/25 04:00 Narrative Exam Physical Exam General: Awake and in no acute distress. Conversational and non-toxic appearing. Slurring of speech noted. HEENT: Normocephalic, atraumatic, mucous membranes moist. Left-sided facial droop noted. Heart: Regular paced rhythm, positive murmur mitral region and aortic area. Lungs: No crackles or wheezing appreciated bilaterally. Abdomen: Soft, nondistended, nontender, positive bowel sounds. ?No guarding or rebound tenderness. Neurologic: Alert and oriented x3, patient able to move all 4 extremities. Strength 4/5 in left upper and lower extremity, decreased relative to right side. Extremities: No edema. Skin: No rash or ecchymoses. Objective Labs 07/20/25 05:25 07/20/25 05:25 Labs: Laboratory Results - last 24 hr 07/19/25 07/19/25 07/19/25 07:30 10:34 11:37 WBC RBC Hgb Hct MCV MCH MCHC RDW Std Deviation Plt Count Neut % (Auto) Lymph % (Auto) [place] % (Auto) Eos % (Auto) Baso % (Auto) Neut # (Auto) Lymph # (Auto) [place] # (Auto) Eos # (Auto) Baso # (Auto) Immature Gran # (Auto) Absolute Nucleated RBC Immature Gran % Nucleated RBC % Sodium Potassium Chloride Carbon Dioxide Anion Gap BUN Creatinine Estim Creat Clear Calc eGFR BUN/Creatinine Ratio Glucose Estimated Ave Glu mg/dL 120 Hemoglobin A1c 5.8 Calculated Osmolality Calcium Corrected Calcium Total Bilirubin AST ALT Alkaline Phosphatase Troponin I 1.168 H* Total Protein Albumin Globulin Albumin/Globulin Ratio Triglycerides Cholesterol LDL Cholesterol, Calc HDL Cholesterol Cholesterol/HDL Ratio TSH Ur Collection Type Clean Catch Urine Color Yellow Urine Clarity Clear Urine pH 6.5 Ur Specific [place] 1.013 Urine Protein Negative Urine Glucose (UA) Negative Urine Ketones Trace Urine Blood Trace Urine Nitrite Negative Urine Bilirubin Negative Urine Urobilinogen (Auto) 2.0 Ur Leukocyte Esterase Positive Urine RBC 2 Urine WBC 2 Ur Squamous Epith Cells 3 Urine Bacteria Rare Ur Culture Indicated? Not Indicated Urine Opiates Screen Negative Urine Fentanyl Screen Negative Ur Barbiturates Screen Negative U Amphetamin/Meth Scrn Negative U Benzodiazepines Scrn Negative U Cocaine Metab Screen Negative U Marijuana (THC) Screen Negative 07/19/25 07/19/25 07/20/25 13:30 22:08 05:25 WBC 8.5 RBC 4.64 Hgb 14.0 Hct 41.9 MCV 90 MCH 30.2 MCHC 33.4 RDW Std Deviation 45.4 Plt Count 240 Neut % (Auto) 55 Lymph % (Auto) 25 [place] % (Auto) 10 Eos % (Auto) 9 Baso % (Auto) 1 Neut # (Auto) 4.7 Lymph # (Auto) 2.2 [place] # (Auto) 0.8 Eos # (Auto) 0.7 H Baso # (Auto) 0.1 Immature Gran # (Auto) 0.04 H Absolute Nucleated RBC 0.00 Immature Gran % 1 H Nucleated RBC % 0 Sodium 139 Potassium 4.2 D Chloride 105 Carbon Dioxide 20.5 Anion Gap 14 BUN 7 L Creatinine 0.6 Estim Creat Clear Calc 57.5 L eGFR > 60 BUN/Creatinine Ratio [address] Glu mg/dL 120 Hemoglobin A1c 5.8 Calculated Osmolality 276 Calcium 9.1 Corrected Calcium 9.1 Total Bilirubin 1.6 H D AST 27 ALT 9 L Alkaline Phosphatase 97 Troponin I 1.185 H* 0.910 H* D 0.798 H* Total Protein 7.2 Albumin 4.1 Globulin 3.1 Albumin/Globulin Ratio 1.3 Triglycerides 74 Cholesterol 123 L LDL Cholesterol, Calc 56 HDL Cholesterol 52 Cholesterol/HDL Ratio 2.4 L TSH 1.74 Ur Collection Type Urine Color Urine Clarity Urine pH Ur Specific [place] Urine Protein Urine Glucose (UA) Urine Ketones Urine Blood Urine Nitrite Urine Bilirubin Urine Urobilinogen (Auto) Ur Leukocyte Esterase Urine RBC Urine WBC Ur Squamous Epith Cells Urine Bacteria Ur Culture Indicated? Urine Opiates Screen Urine Fentanyl Screen Ur Barbiturates Screen U Amphetamin/Meth Scrn U Benzodiazepines Scrn U Cocaine Metab Screen U Marijuana (THC) Screen Quality Measures Quality Measures stroke Suspected type of Stroke: Non Acute Tenecteplase given: Reason(s) Tenecteplase not given: Outside the time window not given Rehab services: PT evaluation ordered and Speech Language Pathology eval ordered VTE Prophylaxis: not indicated Antithrombotic by day 2:: not indicated (describe) Statin ordered: >75 y/o moderate or high intensity dose Anticoagulation ordered for A-fib or flutter (current or hx): not indicated Advance care planning discussed with:: patient Assessment & Plan Assessment Current Active Medications: Generic Name Dose Route Start Last Admin Trade Name Freq PRN Reason Stop Dose Admin Acetaminophen 500 mg 07/20/25 05:40 Acetaminophen 500 Mg Tablet PO 08/19/25 05:39 Q6HR PRN pain 1-3 or Temp 101 Atorvastatin Calcium 40 mg 07/19/25 21:00 07/19/25 20:38 Atorvastatin Calcium 20 Mg Tablet PO 08/18/25 20:59 40 mg HS HYACINTH Administration Labetalol HCl 10 mg 07/19/25 06:27 Labetalol Inj 5 Mg/Ml Vial 4 Ml IVP Q15M PRN hypertension Ondansetron HCl 4 mg 07/19/25 06:27 Ondansetron Inj 2 Mg/Ml Inj 2 Ml IVP 08/18/25 06:26 Q4H PRN NAUSEA OR VOMITING Pharmacy Consult 1 each 07/20/25 03:24 Pharmacy To Consult Pneumovacc XX 08/19/25 03:23 PRN PRN CONSULT Pneumococcal Polyvalent Vaccine 0.5 ml 07/20/25 10:00 Pneumoc 20 Vaccine 0.5 Ml Syringe IMi 07/20/25 10:01 .ONCE ONE Plan Assessment and Plan: Summary: Ms. 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 Patient admitted for CVA workup and cardiology consulted for Elevated troponin. #CVA Workup, left sided facial droop and weakness #Status Post Cleary Dual Chamber Pacemaker (04/2025), history of complete heart block #Concern of Atrial Fibrillation #Moderate aortic stenosis #Severe MAC with mild to moderate MS - Severe thickening and calcification of the mitral valve leaflets and chordae tendonae Patient presented with left-sided facial droop, paresthesia and dysarthria. Left upper extremity and lower extremity weakness noted on physical exam, left- sided facial droop noted. EKG shows paced rhythm, there is suspicion of atrial fibrillation considering patient does have increased LA diameter secondary to severe MAC/mild to moderate mitral stenosis. At bedside patient noted to have irregular rate. Patient had pacemaker placed in April due to history of sick sinus syndrome, complete heart block and symptomatic bradycardia. Patient completed antibiotic treatment after. Was seen in office outpatient. 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 Ventricular capturing threshold 0.75 Volts @ 0.4 ms, Sensing 8.9 millivolts. Lead impedance 710 ohms. The patient is programmed DDDR mode, baseline rate of 60 bpm, maximum track rate 130 beats bpm, Paced and Sensed AV delay of 180 ms. Echocardiogram 07/19/2025: 1. Left ventricle size is normal and systolic function is normal. Estimated ejection fraction is 60-65%. There is grade I diastolic dysfunction. 2. Right ventricle chamber size is normal and systolic function is normal. Estimated RVSP is 32 mmHg with RAP 3. Estimated mild PHTN. 3. There is mild aortic valve stenosis and no regurgitation. Possibly under estimated. 4. There is mild to moderate mitral valve stenosis and moderate regurgitation. Mean gradient of 7mmHg. Severe MAC. Severe thickening and calcification of the mitral valve leaflets as well as the chordae tendon knee. 5. There is mild tricuspid and pulmonic valve regurgitation. 6. There is trivial pericardial effusion with no tamponade. Recommendations: Pacemaker interrogation performed; underlying rhythm irregular-high concern of atrial fibrillation, final report fax pending. Will start patient on heparin gtt. and beta-meghann once MRI is obtained. Cardiac clearance signed and given to central supply tech, pacemaker is more than 6 weeks old and is MRI compatible. Keep potassium greater than 4 and magnesium greater than 2 at all times #ACS Workup, NSTEMI likely Type II vs less likely type I #Elevated Troponin Presented with chief complaint of left-sided facial droop, paresthesias and dysarthria. Also complains of some left-sided weakness and tingling sensation in the left arm and leg. Denies any chest pain, otherwise patient does report some palpitations at times on and off episodes of heart racing . EKG in ED shows paced rhythm, rate 96. Troponin on presentation 1.076 -> 1.168 - > 1.185 -> 0.910 -> 0.798 ART ACS Risk and Mortality Calculator: 123 points; 8 % Probability of from admission to 6 months HEART Score for Major Cardiac Events: 5 points Risk of MACE of 12-16.6%. CHRISTIAN Risk Score for UA/NSTEMI: 3 points, 13% risk at 14 days of: all-cause mortality, new or recurrent OR, or severe recurrent ischemia requiring urgent revascularization. Lipid panel: Cholesterol 123, LDL 56, HDL 52, triglycerides 74; TSH: 1.74; hemoglobin A1c: 5.8 Echocardiogram negative for any regional wall abnormality. Recommendations: Patient was given Plavix 300 mg p.o. x 1 and aspirin 81 mg p.o. x 1 per teleneuro recommendations. Continue DAPT per neurology recommendations. High suspicion of stroke, once patient cleared by neurology/MRI negative for CVA will consider heparin gtt., MRI ordered. Patient presented with CVA, no chest pain elevated troponin likely secondary to demand ischemia in setting of possible CVA. #Mild vascular congestion #Chronic congestive diastolic heart failure with preserved ejection fraction, EF 60-70% Mild vascular congestion noted on chest x-ray, patient stable on room air. - Resumed home dose Bumex 1 mg p.o. daily #Hypertension Will consider starting patient on beta-meghann due to underlying suspicion of atrial fibrillation #Hyperlipidemia Continue atorvastatin #Type 2 DM #CVA, stroke workup Management per primary team Thank you for the consult and allowing to participate in the care of the patient. Cardiology will continue to follow. Case discussed with Attending Physician Dr. Jose C Granados MD Internal Medicine PGY-2 Disclaimer: This note was dictated by speech recognition. Minor errors in front maker may be present due to voice recognition software. Attending Provider Attestation/Addendum I have personally seen and examined the patient separately on the above date of service and discussed the plan of care with the resident. I reviewed the resident Dr. Nash Granados consultation progress note and agree with the resident findings and plan in the note above and have also edited the documentation to reflect my findings and plan. Jose C Diaz M.D. Interventional Cardiology
--- NOTE | 2025-07-20 09:03 | ESPR_ITS ---
Documentation for date of: 07/20/25 Subjective Subjective Interval history: Informant daughter Ms. Coker is a 84-year-old female with past medical history of hypertension, dyslipidemia, diabetes complete heart block status post Cleary dual chamber pacemaker (04/2025-Dr. 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 Patient reported that she went to bed last night around 6:30 PM, woke up around 8 PM yesterday night and noticed some left-sided facial droop and some dysarthria. Patient reported that she does not feel this is her normal voice and she is slurring, complains of some left-sided weakness and tingling sensation in the left arm and leg, otherwise patient does report some palpitations at times on and off episodes of heart racing . She denies any chest pain, chest pressure, shortness of breath, orthopnea, PND, dizziness, syncope, presyncope and falls. ED course: Vitals on presentation significant for blood pressure 168/87, labs pertinent for glucose 169, troponin 1.076, BNP 174. Urinalysis shows rare bacteria, leukocyte esterase positive, WBC 2. Urine drug screen negative, CBC unremarkable, CMP otherwise unremarkable except for findings as above. Stroke alert initiated in the ED chest x-ray in ED shows mild vascular congestion, head CT negative for acute hemorrhage mass effect or midline shift. CTA head and neck shows calcification of internal carotid arteries, some filling defects in bilateral jugular veins, no large vessel occlusion noted. EKG in ED shows paced rhythm, rate 96 and right jugular vein duplex negative for DVT. Telemetry strip showed questionable A-fib paroxysmal although difficult to assess due to her paced rhythm. Patient was seen by teleneurology for possible stroke and recommended MRI. Cardiology was consulted for mild elevation in troponin. Patient asymptomatic with any chest pain or shortness of breath. She was given 1 dose of Plavix and aspirin in the ED. And admitted to telemetry. Home medications included Tylenol, alendronate, Bumex, losartan, simvastatin 07/20/2025 patient currently seen telemetry. Daughter at bedside. MRI brain pending. Dr Cloud was consulted. Pacemaker is going to be interrogated right now. Suspect embolic stroke as a supervisor photoengraving shows paroxysmal atrial fibrillation. Left-sided weakness. Patient continues to have left facial droop with mild speech impairment,Had a long conversation with patient and daughter regarding rehab placement for short-term. They both agreed. Anticoagulation per neurology. Added moderate intensity statin. Review of Systems Review of Systems Narrative Review of Systems: CONSTITUTIONAL: Patient denies any fever, chills. Complaining of fatigue HEENT: Denies any visual disturbances or hearing problems. CARDIOVASCULAR: Patient denies any chest pain, shortness of breath, swelling in the lower extremities. PULMONARY: Patient denies any shortness of breath, cough. GASTROINTESTINAL: Patient denies any abdominal pain, constipation, nausea, vomiting, diarrhea. GENITOURINARY: Patient denies any urinary symptoms of burning or frequency or hematuria, denies any form in the urine. SKIN: Denies any rash. MUSCULOSKELETAL: Denies any muscular skeletal problems of joint pains. NEUROLOGICAL: Complaining of left facial droop, speech impairment, left-sided weakness PSYCHIATRIC: Denies any depression or anxiety. LYMPHATICS : No lymphadenopathy Exam Vital Signs Temp Pulse Resp BP Pulse Ox O2 Del Method 36.5 C 92 20 159/86 H 97 Room Air 07/21/25 04:00 07/21/25 04:00 07/21/25 04:00 07/21/25 04:00 07/21/25 04:00 07/21/25 04:00 Narrative Exam GENERAL APPEARANCE: Patient seems to be comfortable, adequately hydrated and nourished. HEENT: Patient definitely has a left facial droop NECK: Neck supple, no JVD or bruit CARDIOVASCULAR: Heart regular, 3/6 murmurs. Pacemaker noted on the left chest LUNGS/CHEST: Chest clear to auscultation. No rales, rhonchi, wheezing ABDOMEN: Soft, nontender, nondistended. No masses. Normal bowel sounds. EXTREMITIES: No edema, clubbing or cyanosis. SKIN: Skin exam normal without any rashes MUSCULOSKELETAL: Musculoskeletal exam normal PSYCHIATRIC: Normal mood, affect LYMPHATICS: No lymphadenopathy noted NEUROLOGICAL : Left facial droop with left-sided weakness noted Objective Labs 07/21/25 05:02 07/21/25 05:02 Labs: Laboratory Results - last 24 hr 07/20/25 07/21/25 07/21/25 17:34 00:44 05:02 WBC 6.9 RBC 4.48 Hgb 13.7 Hct 40.3 MCV 90 MCH 30.6 MCHC 34.0 RDW Std Deviation 44.2 Plt Count 209 D Neut % (Auto) 56 Lymph % (Auto) 21 [place] % (Auto) 10 Eos % (Auto) 12 H Baso % (Auto) 1 Neut # (Auto) 3.9 Lymph # (Auto) 1.4 [place] # (Auto) 0.7 Eos # (Auto) 0.8 H Baso # (Auto) 0.1 Immature Gran # (Auto) 0.02 H Absolute Nucleated RBC 0.00 Immature Gran % 0 Nucleated RBC % 0 PT 11.1 INR 1.0 APTT 28.0 43.9 H D Sodium 139 Potassium 3.6 D Chloride 104 Carbon Dioxide 22.6 Anion Gap 12 BUN 8 L Creatinine 0.6 Estim Creat Clear Calc 57.5 L eGFR > 60 BUN/Creatinine Ratio 13 Glucose 126 H Calculated Osmolality 277 Calcium 8.7 Corrected Calcium 8.8 Magnesium 1.7 Total Bilirubin 1.2 AST 25 ALT 9 L Alkaline Phosphatase 87 Total Protein 6.8 Albumin 3.9 Globulin 2.9 Albumin/Globulin Ratio 1.3 Assessment & Plan Assessment and plan (1) Acute CVA (cerebrovascular accident): Status: Acute Assessment and plan: Patient seems to have left facial droop with left-sided weakness. CT brain and CTA negative. Will go proceed with MRI once okayed by cardiology. Did receive a dose of aspirin and Plavix in the ED. Suspect embolic stroke as patient seems to have paroxysmal atrial fibrillation on supervisor photoengraving per cardiology. MRI pending today. Dr Cloud was consulted. Anticoagulation per Dr. Hoover and cardiology (2) Elevated troponin: Status: Acute Assessment and plan: Patient did not complain of any chest pain. Dr. Estephania Mcgarry was consulted. Recent pacemaker placement. (3) History of permanent cardiac pacemaker placement: Status: Acute Assessment and plan: Status post recent pacemaker placement which will be interrogated by cardiology. (4) Aortic stenosis: Status: Chronic Assessment and plan: Severe aortic stenosis. Was on Bumex at home will be resumed (5) Hypertension: Status: Chronic Assessment and plan: Will do permissive hypertension for now due to stroke (6) Diabetes: Status: Acute Assessment and plan: Accu-Chek, sliding scale. Check A1c (7) Hyperlipidemia: Status: Acute Assessment and plan: Switch simvastatin to atorvastatin Additional Assessment & Plan Additional Plan: Estimated length of stay 2 to 3 days DVT prophylaxis hold due to stroke. Hopefully can start today GI prophylaxis not needed Discharge disposition to rehab CODE STATUS full code
[2025-07-20] MEDS: ACETAMINOPHEN 500 MG TABLET PO ×2 (12:09→20:27)
[2025-07-20] MEDS: BUMETANIDE 0.5 MG TABLET 1 MG PO (12:09)
[2025-07-20 18:10] LABS: INR 1.0 (0.9-1.3); Partial Thromboplastin Time 28.0 Seconds (22.0-36.0); Prothrombin Time 11.1 Seconds (9.0-12.2)
[2025-07-20] MEDS: HEPARIN SOD INJ 5000 UNIT/ML VIAL 3450 UNIT IV (18:47)
[2025-07-20] MEDS: Heparin/D5w 25K 250 ML Ivpb 25,000 UNIT/250 ML BAG 6.913 UNIT IV (18:49)
--- NOTE | 2025-07-20 19:10 | PD.VCONSULT1 ---
Telemedicine visit statement This visit was conducted with the use of interactive audio and video telecommunications system that permits real time communication between the patient and the provider. Patient's verbal consent for virtual visit was obtained on 07/20/25 at 1910. History of Present Illness History of Present Illness History of present illness: Ms. Coker is a 84-year-old female with past medical history of complete heart block status post pacemaker placement in 04/2025, moderate aortic stenosis, type 2 diabetes mellitus, hypertension, hyperlipidemia, colon cancer (in remission status post partial colectomy 12 years ago) and osteoarthritis who presented to ER on 07/19/2025 with a chief complaint of left-sided facial droop and paresthesias. Patient reported that she went to bed last night around 6:30 PM, woke up around 8 PM last night and noticed some left-sided facial droop and some dysarthria. Patient reported that she does not feel this is her normal voice and she is slurring, complains of some left-sided weakness and tingling sensation in the left arm and leg, otherwise patient does report some palpitations at times on and off episodes of heart racing . She denies any chest pain, chest pressure, shortness of breath, dizziness, syncope/presyncope and falls. workup in the ER: Vitals on presentation significant for blood pressure 168/87, labs: glucose 169, troponin 1.076, BNP 174. Urinalysis shows rare bacteria, leukocyte esterase positive, WBC 2. Urine drug screen negative, CBC unremarkable, CMP otherwise unremarkable. Imaging: chest x-ray shows mild vascular congestion, head CT negative for acute hemorrhage mass effect or midline shift. CTA head and neck shows calcification of internal carotid arteries, some filling defects in bilateral jugular veins, no large vessel occlusion noted. EKG shows paced rhythm, rate 96 and right jugular vein duplex negative for DVT Neurology was consulted to evaluate further, and Cardiology has been following for elevated troponin. Past Medical History Past Medical History Comments [facility] COMMENT: Past Medical History: as above Family History: No known family history of heart disease, MS, or stroke. Surgical History: Partial colectomy, cholecystectomy. Social History: Denies history of smoking, denies current alcohol use, denies recreational drug use TeleMedicine ROS Pertinent Review of Systems Systems Reviewed: All systems reviewed, normal except as documented Meds Home Medications and Allergies Home Medications ?Medication ?Instructions ?Recorded ?Confirmed ?Type alendronate 35 mg tablet 35 mg PO QAM 05/07/25 07/19/25 History simvastatin 40 mg tablet 40 mg PO QDAY 05/07/25 07/19/25 History bumetanide 1 mg tablet 1 mg PO QDAY 07/19/25 07/19/25 History losartan 100 mg tablet 100 mg PO QDAY 07/19/25 07/19/25 History Allergies Allergy/AdvReac Type Severity Reaction Status Date / Time No Known Allergies Allergy Verified 07/19/25 06:10 Virtual exam Vital Signs Temp Pulse Resp BP Pulse Ox O2 Del Method 97.1 F 84 16 172/86 H 95 Room Air 07/20/25 16:00 07/20/25 16:00 07/20/25 16:00 07/20/25 16:00 07/20/25 16:00 07/20/25 16:00 Results Labs 07/20/25 05:25 07/20/25 05:25 Labs: Short CBC 07/20/25 Range/Units 05:25 WBC 8.5 (3.6-11.0) Thou/mm3 Hgb 14.0 (12.0-16.0) g/dL Hct 41.9 (36.0-46.0) % Plt Count 240 (140-440) Thou/mm3 BMP 07/20/25 05:25 Sodium 139 Potassium 4.2 D Chloride 105 Carbon Dioxide 20.5 BUN 7 L Creatinine 0.6 Glucose 125 H Calcium 9.1 Cardiac Enzymes 07/19/25 07/20/25 Range/Units 22:08 05:25 Troponin I 0.910 H* D 0.798 H* (0.0-0.045) ng/mL Liver Function 07/20/25 Range/Units 05:25 Total Bilirubin 1.6 H D (0.3-1.2) mg/dL AST 27 (0-34) U/L ALT 9 L (10-49) U/L Alkaline Phosphatase 97 (46-116) U/L Albumin 4.1 (3.4-4.8) gm/dL Assessment & Plan Problem List (1) Acute CVA (cerebrovascular accident): Status: Acute Assessment and plan: with multiple embolic type infarcts bilaterally per MRI brain suggests cardiac origin suspect occult atrial fibrillation Agreed with anticoagulant therapy. continue to monitor her closely continue with PT/OT (2) Elevated troponin: Status: Acute Assessment and plan: trending down could be from demand ischemia (3) Aortic stenosis: Status: Chronic (4) Hypertension: Status: Chronic Assessment and plan: permissive BP control for another 24 hours.
[2025-07-20] MEDS: ATORVASTATIN CALCIUM 20 MG TABLET 40 MG PO (20:27)
[2025-07-21] VITALS (8 sets, daily range): BP systolic 142–165; BP diastolic 77–93; PULSE 76–100; RESP 15–25; TEMP 36.1–36.6; O2SAT 97–98; BMI 24.5
[2025-07-21 01:26] LABS: Partial Thromboplastin Time 43.9 Seconds (22.0-36.0)
[2025-07-21] MEDS: HEPARIN SOD INJ 5000 UNIT/ML VIAL 1728 UNIT IVP (02:12)
[2025-07-21 05:21] LABS: Basophils # (Auto) 0.1 Thou/mm3 (0.0-0.2); Basophils % (Auto) 1 % (0-2.5); Eosinophils # (Auto) 0.8 Thou/mm3 (0.0-0.5); Eosinophils % (Auto) 12 % (0-10); Hematocrit 40.3 % (36.0-46.0); Hemoglobin 13.7 g/dL (12.0-16.0); Immature Granulocytes Auto 0.02 Thou/mm3 (0.00-0.00); Lymphocytes # (Auto) 1.4 Thou/mm3 (1.0-4.8); Lymphocytes % (Auto) 21 % (10-50); Mean Corpuscular HGB Conc 34.0 g/dl (31.0-37.0); Mean Corpuscular Hemoglobin 30.6 pg (25.0-35.0); Mean Corpuscular Volume 90 fL (80-100); Monocytes # (Auto) 0.7 Thou/mm3 (0.0-0.8); Monocytes % (Auto) 10 % (0-12); Neutrophils # (Auto) 3.9 Thou/mm3 (1.8-7.7); Neutrophils % (Auto) 56 % (37-80); Nucleated Red Blood Cell # 0.00 Thou/mm3 (0.00-0.00); Nucleated Red Blood Cell % 0 /100 WBC (0); Platelet Count 209 Thou/mm3 (140-440); RDW Standard Deviation 44.2 fL (36.4-46.3); Red Blood Count 4.48 Miln/mm3 (4.00-5.20); White Blood Count 6.9 Thou/mm3 (3.6-11.0)
[2025-07-21 05:49] LABS: Alanine Aminotransferase 9 U/L (10-49); Albumin, Serum 3.9 gm/dL (3.4-4.8); Albumin/Globulin Ratio 1.3 (1.2-2.2); Alkaline Phosphatase 87 U/L (46-116); Anion Gap 12 (7-16); Aspartate Amino Transferase 25 U/L (0-34); BUN/Creatinine Ratio 13 Ratio (12-20); Bilirubin,Total 1.2 mg/dL (0.3-1.2); Blood Urea Nitrogen 8 mg/dL (9-23); Calcium 8.7 mg/dL (8.3-10.6); Calcium (Corrected) 8.8 mg/dL (8.5-10.1); Carbon Dioxide 22.6 mMol/L (20.0-31.0); Chloride 104 mMol/L (98-107); Creatinine (Component) 0.6 mg/dL (0.6-1.3); Estimated Creatinine Clearance 57.5 mL/min (>60); Globulin 2.9 gm/dL (2.3-3.5); Glucose 126 mg/dL (74-106); Magnesium 1.7 mg/dL (1.6-2.6); Osmolality,Calculated 277 (275-295); Potassium 3.6 mMol/L (3.4-5.1); Sodium 139 mMol/L (136-145); Total Protein 6.8 gm/dL (5.7-8.2); eGFR > 60 See Note
[2025-07-21] MEDS: ACETAMINOPHEN 500 MG TABLET PO ×3 (06:04→19:59)
[2025-07-21] MEDS: Magnesium Sulfate 2 GM Ivpb 2 GM/50 ML BAG IV (08:10)
[2025-07-21] MEDS: BUMETANIDE 0.5 MG TABLET 1 MG PO (08:11)
[2025-07-21 09:48] LABS: Partial Thromboplastin Time 52.1 Seconds (22.0-36.0)
--- NOTE | 2025-07-21 10:21 | ESPR_ITS ---
Documentation for date of: 07/21/25 Subjective Subjective Interval history: Patient seen and examined at bedside, pacemaker interrogation report reviewed patient has irregular rhythm has underlying atrial fibrillation. Patient was started on heparin drip last night after MRI and discussion with neurologist. Will start patient on metoprolol XL 50 mg daily for rate control, will titrate accordingly depending on response. Will schedule patient for transesophageal echocardiogram in a.m. with bubble study. Low iron noted 49, iron saturation 17% will give Feraheme 510 mg x 1 considering patient does have heart failure. Electrolytes were adequately repleted by primary team. Exam Vital Signs Temp Pulse Resp BP Pulse Ox O2 Del Method 97 F 88 16 159/84 H 97 Room Air 07/21/25 08:00 07/21/25 08:11 07/21/25 08:00 07/21/25 08:11 07/21/25 08:00 07/21/25 08:00 Narrative Exam Physical Exam General: Awake and in no acute distress. Conversational and non-toxic appearing. Slurring of speech noted. HEENT: Normocephalic, atraumatic, mucous membranes moist. Left-sided facial droop noted. Heart: Regular paced rhythm, positive murmur mitral region and aortic area. Lungs: No crackles or wheezing appreciated bilaterally. Abdomen: Soft, nondistended, nontender, positive bowel sounds. ?No guarding or rebound tenderness. Neurologic: Alert and oriented x3, patient able to move all 4 extremities. Strength 4/5 in left upper and lower extremity, decreased relative to right side. Extremities: No edema. Skin: No rash or ecchymoses. Objective Labs 07/21/25 05:02 07/21/25 05:02 Labs: Laboratory Results - last 24 hr 07/20/25 07/21/25 07/21/25 17:34 00:44 05:02 WBC 6.9 RBC 4.48 Hgb 13.7 Hct 40.3 MCV 90 MCH 30.6 MCHC 34.0 RDW Std Deviation 44.2 Plt Count 209 D Neut % (Auto) 56 Lymph % (Auto) 21 [facility] % (Auto) 10 Eos % (Auto) 12 H Baso % (Auto) 1 Neut # (Auto) 3.9 Lymph # (Auto) 1.4 [facility] # (Auto) 0.7 Eos # (Auto) 0.8 H Baso # (Auto) 0.1 Immature Gran # (Auto) 0.02 H Absolute Nucleated RBC 0.00 Immature Gran % 0 Nucleated RBC % 0 PT 11.1 INR 1.0 APTT 28.0 43.9 H D Sodium 139 Potassium 3.6 D Chloride 104 Carbon Dioxide 22.6 Anion Gap 12 BUN 8 L Creatinine 0.6 Estim Creat Clear Calc 57.5 L eGFR > 60 BUN/Creatinine Ratio 13 Glucose 126 H Calculated Osmolality 277 Calcium 8.7 Corrected Calcium 8.8 Magnesium 1.7 Total Bilirubin 1.2 AST 25 ALT 9 L Alkaline Phosphatase 87 Total Protein 6.8 Albumin 3.9 Globulin 2.9 Albumin/Globulin Ratio 1.3 07/21/25 08:46 WBC RBC Hgb Hct MCV MCH MCHC RDW Std Deviation Plt Count Neut % (Auto) Lymph % (Auto) [facility] % (Auto) Eos % (Auto) Baso % (Auto) Neut # (Auto) Lymph # (Auto) [facility] # (Auto) Eos # (Auto) Baso # (Auto) Immature Gran # (Auto) Absolute Nucleated RBC Immature Gran % Nucleated RBC % PT INR APTT 52.1 H Sodium Potassium Chloride Carbon Dioxide Anion Gap BUN Creatinine Estim Creat Clear Calc eGFR BUN/Creatinine Ratio Glucose Calculated Osmolality Calcium Corrected Calcium Magnesium Total Bilirubin AST ALT Alkaline Phosphatase Total Protein Albumin Globulin Albumin/Globulin Ratio Quality Measures Quality Measures stroke Suspected type of Stroke: Acute Ischemic Last known well (date): 07/18/25 Last known well (time): 18:00 Tenecteplase given: Reason(s) Tenecteplase not given: Outside the time window and Stroke severity too mild (non-disabling) not given Rehab services: PT evaluation ordered and Speech Language Pathology eval ordered VTE Prophylaxis: pharmaceutical Antithrombotic by day 2:: contraindicated (describe) (On heparin gtt.) Statin ordered: >75 y/o moderate or high intensity dose Anticoagulation ordered for A-fib or flutter (current or hx): ordered Advance care planning discussed with:: patient Assessment & Plan Assessment Current Active Medications: Generic Name Dose Route Start Last Admin Trade Name Freq PRN Reason Stop Dose Admin Acetaminophen 500 mg 07/20/25 05:40 07/21/25 06:04 Acetaminophen 500 Mg Tablet PO 08/19/25 05:39 500 mg Q6HR PRN Administration pain 1-3 or Temp 101 Atorvastatin Calcium 40 mg 07/19/25 21:00 07/20/25 20:27 Atorvastatin Calcium 20 Mg Tablet PO 08/18/25 20:59 40 mg HS HYACINTH Administration Bumetanide 1 mg 07/20/25 11:15 07/21/25 08:11 Bumetanide 0.5 Mg Tablet PO 08/19/25 11:14 1 mg QDAY HYACINTH Administration Heparin Sodium/Dextrose 25,000 unit in 250 mls @ 6.913 mls/hr 07/20/25 18:30 07/21/25 02:13 Heparin In D5w Ivpb IV 08/03/25 18:29 14 units/kg/hr .Q24H HYACINTH 8.065 mls/hr Protocol Titration 12 UNITS/KG/HR Metoprolol Succinate 50 mg 07/21/25 10:15 Metoprolol Succinate Xl 25 Mg Tabcr PO 08/20/25 10:14 QDAY HYACINTH Ondansetron HCl 4 mg 07/19/25 06:27 Ondansetron Inj 2 Mg/Ml Inj 2 Ml IVP 08/18/25 06:26 Q4H PRN NAUSEA OR VOMITING Pharmacy Consult 1 each 07/20/25 03:24 Pharmacy To Consult Pneumovacc XX 08/19/25 03:23 PRN PRN CONSULT Plan Assessment and Plan: Summary: Ms. 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 Patient admitted for CVA workup and cardiology consulted for Elevated troponin. #Multiple acute embolic infarcts #Atrial fibrillation, rate controlled #Status Post Cleary Dual Chamber Pacemaker (04/2025), history of complete heart block #Moderate aortic stenosis #Severe MAC with mild to moderate MS - Severe thickening and calcification of the mitral valve leaflets and chordae tendonae Patient presented with left-sided facial droop, paresthesia and dysarthria. Left upper extremity and lower extremity weakness noted on physical exam, left- sided facial droop noted. EKG shows paced rhythm, there is suspicion of atrial fibrillation considering patient does have increased LA diameter secondary to severe MAC/mild to moderate mitral stenosis. At bedside patient noted to have irregular rate. Patient had pacemaker placed in April due to history of sick sinus syndrome, complete heart block and symptomatic bradycardia. Patient completed antibiotic treatment after. Was seen in office outpatient. Cardiac clearance signed and given to health information tech, pacemaker is more than 6 weeks old and is MRI compatible. 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 Ventricular capturing threshold 0.75 Volts @ 0.4 ms, Sensing 8.9 millivolts. Lead impedance 710 ohms. The patient is programmed DDDR mode, baseline rate of 60 bpm, maximum track rate 130 beats bpm, Paced and Sensed AV delay of 180 ms. Echocardiogram 07/19/2025: 1. Left ventricle size is normal and systolic function is normal. Estimated ejection fraction is 60-65%. There is grade I diastolic dysfunction. 2. Right ventricle chamber size is normal and systolic function is normal. Estimated RVSP is 32 mmHg with RAP 3. Estimated mild PHTN. 3. There is mild aortic valve stenosis and no regurgitation. Possibly under estimated. 4. There is mild to moderate mitral valve stenosis and moderate regurgitation. Mean gradient of 7mmHg. Severe MAC. Severe thickening and calcification of the mitral valve leaflets as well as the chordae tendon knee. 5. There is mild tricuspid and pulmonic valve regurgitation. 6. There is trivial pericardial effusion with no tamponade. Patient denies any kind of swallowing problems or any kind of esophageal interventions or previous surgeries. Patient denies any kind of gastric ulcers bleeding and any other hematemesis or hematochezia. Patient denies any issues with anesthesia previously. Patient explained all the risks, benefits and alternatives of NATALIE including the risk of perforation, bleeding, respiratory failure secondary to sedation, injury to teeth gums esophagus and stomach. Patient understands all risks and benefits and provided consent for the procedure. We will keep him n.p.o. overnight and plan for NATALIE in the morning. Recommendations: Pacemaker interrogation performed; underlying rhythm irregular consistent with atrial fibrillation, no episodes of RVR noted. Continue heparin gtt., will transition to Eliquis 2.5 mg twice daily prior to discharge Started on metoprolol XL 50 mg daily, will titrate accordingly. Keep potassium greater than 4 and magnesium greater than 2 at all times Scheduled for NATALIE tomorrow a.m. #ACS Workup, NSTEMI likely Type II vs less likely type I #Elevated Troponin Presented with chief complaint of left-sided facial droop, paresthesias and dysarthria. Also complains of some left-sided weakness and tingling sensation in the left arm and leg. Denies any chest pain, otherwise patient does report some palpitations at times on and off episodes of heart racing . EKG in ED shows paced rhythm, rate 96. Troponin on presentation 1.076 -> 1.168 - > 1.185 -> 0.910 -> 0.798 ART ACS Risk and Mortality Calculator: 123 points; 8 % Probability of from admission to 6 months HEART Score for Major Cardiac Events: 5 points Risk of MACE of 12-16.6%. CHRISTIAN Risk Score for UA/NSTEMI: 3 points, 13% risk at 14 days of: all-cause mortality, new or recurrent SC, or severe recurrent ischemia requiring urgent revascularization. Lipid panel: Cholesterol 123, LDL 56, HDL 52, triglycerides 74; TSH: 1.74; hemoglobin A1c: 5.8 Echocardiogram negative for any regional wall abnormality. Patient was given Plavix 300 mg p.o. x 1 and aspirin 81 mg p.o. x 1 per teleneuro recommendations. Recommendations: MRI positive for multiple acute embolic infarcts, started on heparin gtt., will be discharged on Eliquis 2.5 mg twice daily, no aspirin or Plavix indicated. Patient presented with CVA, no chest pain elevated troponin likely secondary to demand ischemia in setting of possible CVA. Patient will need outpatient workup with stress test #Chronic congestive diastolic heart failure with preserved ejection fraction, EF 60-70% Mild vascular congestion noted on chest x-ray, patient stable on room air. -Continue home dose Bumex 1 mg p.o. daily - Iron panel shows depleted stores iron 49, Feraheme 510 mg x 1 ordered #Hypertension Started on metoprolol XL 50 mg daily #Hyperlipidemia Continue atorvastatin #Type 2 DM #Multiple acute embolic infarct #Iron deficiency Management per primary team Thank you for the consult and allowing to participate in the care of the patient. Cardiology will continue to follow. Case discussed with Attending Physician Dr. Jose C Granados MD Internal Medicine PGY-2 Disclaimer: This note was dictated by speech recognition. Minor errors in top printing press operator may be present due to voice recognition software. Attending Provider Attestation/Addendum I have personally seen and examined the patient separately on the above date of service and discussed the plan of care with the resident. I reviewed the resident Dr. Nash Granados consultation progress note and agree with the resident findings and plan in the note above and have also edited the documentation to reflect my findings and plan. Jose C Diaz M.D. Interventional Cardiology
[2025-07-21] MEDS: METOPROLOL SUCCINATE XL 25 MG TABCR 50 MG PO (10:53)
--- NOTE | 2025-07-21 11:35 | ESPR_ITS ---
Documentation for date of: 07/21/25 Subjective Subjective Interval history: Ms. Coker is a 84-year-old female with past medical history of hypertension, dyslipidemia, diabetes complete heart block status post Cleary dual chamber pacemaker (04/2025-Dr. 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 Patient reported that she went to bed last night around 6:30 PM, woke up around 8 PM yesterday night and noticed some left-sided facial droop and some dysarthria. Patient reported that she does not feel this is her normal voice and she is slurring, complains of some left-sided weakness and tingling sensation in the left arm and leg, otherwise patient does report some palpitations at times on and off episodes of heart racing . She denies any chest pain, chest pressure, shortness of breath, orthopnea, PND, dizziness, syncope, presyncope and falls. ED course: Vitals on presentation significant for blood pressure 168/87, labs pertinent for glucose 169, troponin 1.076, BNP 174. Urinalysis shows rare bacteria, leukocyte esterase positive, WBC 2. Urine drug screen negative, CBC unremarkable, CMP otherwise unremarkable except for findings as above. Stroke alert initiated in the ED chest x-ray in ED shows mild vascular congestion, head CT negative for acute hemorrhage mass effect or midline shift. CTA head and neck shows calcification of internal carotid arteries, some filling defects in bilateral jugular veins, no large vessel occlusion noted. EKG in ED shows paced rhythm, rate 96 and right jugular vein duplex negative for DVT. Telemetry strip showed questionable A-fib paroxysmal although difficult to assess due to her paced rhythm. Patient was seen by teleneurology for possible stroke and recommended MRI. Cardiology was consulted for mild elevation in troponin. Patient asymptomatic with any chest pain or shortness of breath. She was given 1 dose of Plavix and aspirin in the ED. And admitted to telemetry. Home medications included Tylenol, alendronate, Bumex, losartan, simvastatin 07/20/2025 patient currently seen telemetry. Daughter at bedside. MRI brain pending. Dr Cloud was consulted. Pacemaker is going to be interrogated right now. Suspect embolic stroke as a sleeve setter lockstitch shows paroxysmal atrial fibrillation. Left-sided weakness. Patient continues to have left facial droop with mild speech impairment,Had a long conversation with patient and daughter regarding rehab placement for short-term. They both agreed. Anticoagulation per neurology. Added moderate intensity statin. 07/21/25: Patient seen and assessed on telemetry. Continues to have left sided weakness, lower facial droop, and slurred speech. MRI showed multiple embolic strokes in left cerebellar hemisphere, left temporal lobe, right temporal lobe, bilateral basal ganglia, right parietal lobe, right caudate nucleus, right frontal lobe, bilateral high parietal lobes. Spoke with cardiology, will start on metoprolol 50 mg daily for rate control. Pending PT and POWER EQUIPMENT TECHNOLOGY INSTRUCTOR evaluation. Pending SNF placement, also spoke with social science professor regarding insurance coverage for [facility] as patient self pays for all her medications. Will follow up. Exam Vital Signs Temp Pulse Resp BP Pulse Ox O2 Del Method 97 F 88 16 155/84 H 97 Room Air 07/21/25 08:00 07/21/25 10:53 07/21/25 08:00 07/21/25 10:53 07/21/25 08:00 07/21/25 08:00 Narrative Exam GENERAL APPEARANCE: Patient seems to be comfortable, adequately hydrated and nourished. HEENT: Left facial droop, slurred speech. NECK: Neck supple, no JVD or bruit CARDIOVASCULAR: Heart regular, 3/6 murmur. Pacemaker on the left chest LUNGS/CHEST: Chest clear to auscultation. No rales, rhonchi, wheezing ABDOMEN: Soft, nontender, nondistended. No masses. Normal bowel sounds. EXTREMITIES: No edema, clubbing or cyanosis. SKIN: Skin exam normal without any rashes MUSCULOSKELETAL: Musculoskeletal exam normal PSYCHIATRIC: Normal mood, affect LYMPHATICS: No lymphadenopathy noted NEUROLOGICAL : Alert and oriented x3, left facial droop as above, strength 4/5 in left upper extremity, 3/5 in left lower. Strength 5/5 in right extremities. Sensation intact. Objective Labs 07/22/25 04:30 07/22/25 04:30 Labs: Laboratory Results - last 24 hr 07/20/25 07/21/25 07/21/25 17:34 00:44 05:02 WBC 6.9 RBC 4.48 Hgb 13.7 Hct 40.3 MCV 90 MCH 30.6 MCHC 34.0 RDW Std Deviation 44.2 Plt Count 209 D Neut % (Auto) 56 Lymph % (Auto) 21 [place] % (Auto) 10 Eos % (Auto) 12 H Baso % (Auto) 1 Neut # (Auto) 3.9 Lymph # (Auto) 1.4 [place] # (Auto) 0.7 Eos # (Auto) 0.8 H Baso # (Auto) 0.1 Immature Gran # (Auto) 0.02 H Absolute Nucleated RBC 0.00 Immature Gran % 0 Nucleated RBC % 0 PT 11.1 INR 1.0 APTT 28.0 43.9 H D Sodium 139 Potassium 3.6 D Chloride 104 Carbon Dioxide 22.6 Anion Gap 12 BUN 8 L Creatinine 0.6 Estim Creat Clear Calc 57.5 L eGFR > 60 BUN/Creatinine Ratio 13 Glucose 126 H Calculated Osmolality 277 Calcium 8.7 Corrected Calcium 8.8 Magnesium 1.7 Total Bilirubin 1.2 AST 25 ALT 9 L Alkaline Phosphatase 87 Total Protein 6.8 Albumin 3.9 Globulin 2.9 Albumin/Globulin Ratio 1.3 07/21/25 08:46 WBC RBC Hgb Hct MCV MCH MCHC RDW Std Deviation Plt Count Neut % (Auto) Lymph % (Auto) [place] % (Auto) Eos % (Auto) Baso % (Auto) Neut # (Auto) Lymph # (Auto) [place] # (Auto) Eos # (Auto) Baso # (Auto) Immature Gran # (Auto) Absolute Nucleated RBC Immature Gran % Nucleated RBC % PT INR APTT 52.1 H Sodium Potassium Chloride Carbon Dioxide Anion Gap BUN Creatinine Estim Creat Clear Calc eGFR BUN/Creatinine Ratio Glucose Calculated Osmolality Calcium Corrected Calcium Magnesium Total Bilirubin AST ALT Alkaline Phosphatase Total Protein Albumin Globulin Albumin/Globulin Ratio Quality Measures Quality Measures stroke Suspected type of Stroke: Non Acute Tenecteplase given: Reason(s) Tenecteplase not given: Stroke severity too mild (non-disabling) (Patient was not having a stroke) not given Rehab services: PT evaluation ordered and Speech Language Pathology eval ordered VTE Prophylaxis: pharmaceutical Antithrombotic by day 2:: not indicated (describe) (on heparin drip) Statin ordered: >75 y/o moderate or high intensity dose Anticoagulation ordered for A-fib or flutter (current or hx): ordered Advance care planning discussed with:: patient Assessment & Plan Assessment Current Active Medications: Generic Name Dose Route Start Last Admin Trade Name Freq PRN Reason Stop Dose Admin Acetaminophen 500 mg 07/20/25 05:40 07/21/25 06:04 Acetaminophen 500 Mg Tablet PO 08/19/25 05:39 500 mg Q6HR PRN Administration pain 1-3 or Temp 101 Atorvastatin Calcium 40 mg 07/19/25 21:00 07/20/25 20:27 Atorvastatin Calcium 20 Mg Tablet PO 08/18/25 20:59 40 mg HS HYACINTH Administration Bumetanide 1 mg 07/20/25 11:15 07/21/25 08:11 Bumetanide 0.5 Mg Tablet PO 08/19/25 11:14 1 mg QDAY HYACINTH Administration Heparin Sodium/Dextrose 25,000 unit in 250 mls @ 6.913 mls/hr 07/20/25 18:30 07/21/25 08:46 Heparin In D5w Ivpb IV 08/03/25 18:29 14 units/kg/hr .Q24H HYACINTH 8.065 mls/hr Protocol Titration 12 UNITS/KG/HR Metoprolol Succinate 50 mg 07/21/25 10:15 07/21/25 10:53 Metoprolol Succinate Xl 25 Mg Tabcr PO 08/20/25 10:14 50 mg QDAY HYACINTH Administration Ondansetron HCl 4 mg 07/19/25 06:27 Ondansetron Inj 2 Mg/Ml Inj 2 Ml IVP 08/18/25 06:26 Q4H PRN NAUSEA OR VOMITING Pharmacy Consult 1 each 07/20/25 03:24 Pharmacy To Consult Pneumovacc XX 08/19/25 03:23 PRN PRN CONSULT Plan Ms. 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 #Multiple acute embolic infarcts - Presented with left-sided facial droop, paresthesia and dysarthria, started on 07/18 6:30PM. Left upper extremity and lower extremity weakness noted on physical exam, left-sided facial droop noted. -A1c 5.8. Lipid panel within normal limits. TSH 1.74. - CT head negative - CTA head neck showed diffuse significant calcification of both internal carotid arteries in the cavernous sinus but no vascular stenosis is noted on either side. As well as extensive atherosclerotic calcification noted in the region of the bifurcation of the right common carotid artery and proximal internal carotid. - Patient was given Plavix 300 mg p.o. x 1 and aspirin 81 mg p.o. x 1 per teleneuro recommendations. -Echo 07/19 showed EF 66 5% with grade 1 diastolic dysfunction. Mild pulmonary hypertension. Mild aortic stenosis. Mild to moderate mitral stenosis and moderate regurg. Severe MAC. Severe thickening and calcification of mitral valve leaflets and chordae tendonae. No bubble. - Brain MRI/MRA without IV contrast shows multiple acute embolic infarcts left cerebellar hemisphere, left temporal lobe, right temporal lobe, bilateral basal ganglia, right parietal lobe, right caudate nucleus, right frontal lobe, bilateral high parietal lobes. - Likely secondary to afib and severe MAC Plan: - Consulted cardiology Dr. Diaz, appreciate recommendations - Consulted neurology Dr. Cloud, appreciate recommendations - Continue heparin drip, transition to Eliquis 2.5 twice daily prior to discharge. No ASA or Plavix indicated. - Atorvastatin 40 mg HS daily - Consider NATALIE - Pending PT and speech evaluation - Plan for discharge to SNF for rehab - Neurochecks every 2 hours - Admitted to Telemetry - Head of bed elevation >30 degrees - Maintain euglycemia and normal temperature #Atrial fibrillation, rate controlled #Status Post Cleary Dual Chamber Pacemaker (04/2025), history of complete heart block #Moderate aortic stenosis #Severe MAC with mild to moderate MS - Severe thickening and calcification of the mitral valve leaflets and chordae tendonae - EKG shows paced rhythm, there is suspicion of atrial fibrillation considering patient does have increased LA diameter secondary to severe MAC/mild to moderate mitral stenosis. At bedside patient noted to have irregular rate. - Pacemaker interrogation performed; underlying rhythm irregular consistent with atrial fibrillation - Patient had pacemaker placed in April due to history of sick sinus syndrome, complete heart block and symptomatic bradycardia. Patient completed antibiotic treatment after. Was seen in office outpatient. - Cardiac clearance signed and given to environmental services tech, pacemaker is more than 6 weeks old and is MRI compatible. - Echo as above. Plan: - Considering NATALIE, may be done outpatient - Started metoprolol 50 mg daily for rate control - Heparin drip as above, transition to Eliquis 2.5 BID upon discharge #NSTEMI likely Type II vs less likely type I #Elevated Troponin (Resolved) - Troponin on presentation 1.076 -> 1.168 -> 1.185 -> 0.910 -> 0.798 - Patient presented with CVA, however no chest pain elevated troponin likely secondary to demand ischemia in setting of possible CVA. Plan: - Outpatient workup with stress test #Chronic congestive diastolic heart failure with preserved ejection fraction, EF 60-70% -Echo 07/19 showed EF 66 5% with grade 1 diastolic dysfunction. Mild pulmonary hypertension. Mild aortic stenosis. Mild to moderate mitral stenosis and moderate regurg. Severe MAC. Severe thickening and calcification of mitral valve leaflets and chordae tendonae. No bubble. Plan: - Continue home Bumex 1 mg daily - Outpatient follow up with cardiology #Hypertension - S/p permissive hypertension for 48 hours (symptoms started 07/18 6:30PM) - Started on metoprolol XL 50 mg daily by cardiology - Hold home losartan 100 daily, follow up BP tomorrow #Hyperlipidemia - Previously on simvastatin 40 mg daily. - Continue atorvastatin #Hx Type 2 DM - A1c 5.8. - Cardiac diet - No active treatment at this time #Iron deficiency - Low iron noted 49, iron saturation 17% - Ferumoxytol x1 Health Maintenance Disposition: telemetry, pending SNF placement DVT prophylaxis: heparin drip GI prophylaxis: none Diet: cardiac CODE STATUS: FULL Patient plan of care was discussed with the attending physician, Dr. Rizvi. Annalee Zepeda DO, PGY-1 Attending Provider Attestation/Addendum Patient seen and examined with resident physician Dr. Zepeda. Note reviewed, agree with findings and recommendations. Patient with stroke on MRI most likely related to paroxysmal atrial fibrillation. Currently on heparin drip. Will transition to Eliquis per cardiology recommendations.
[2025-07-21 11:47] LABS: Ferritin 43 ng/mL (7.3-270.7); Iron 49 mcg/dL (50-170); Percent Iron Saturation 17 % (20-55); Total Iron Binding Capacity 287 mcg/dL (250-425); Unsaturated Iron Binding 238 (225-295)
--- NOTE | 2025-07-21 12:13 | PC.SS ---
Addendum entered by FRANKIE Sandhu 07/21/25 12:56: WELDER FABRICATOR submitted SNF referral pending response, patient prefers [facility]. Original Note: Patient is an 84 year old female presenting to the hospital for left sided weakness, r/o CVA, elevated T. WELDER FABRICATOR met with patient at bedside, role and reason for visit was explained. Patient confirmed demographic information and stated she lives at home alone. Patient stated that her decision maker in case she is unable to make decisions is her daughter Nafisa [phone]. Patient stated that she uses walker with cushion and a cane to ambulate at home. Patient stated her PCP is Dr. Rizvi and was seen two months ago her pharmacy of choice is [facility]. Patient is retired. Patient stated that once medically clear she would like to go to short term rehab. Her preferred SNF is on [facility]. WELDER FABRICATOR asked PASSR questions, patient responded no to all questions. WELDER FABRICATOR will submit SNF referral. PCP: Dr. Rizvi Decision maker: Nafisa King [phone] d/c: SNF
[2025-07-21] MEDS: ferumoxytoL (NON-ESRD) 510 MG in SODIUM CHLORIDE 0.9% 100 ML 234 MG IV (13:45)
[2025-07-21 15:23] LABS: Partial Thromboplastin Time 44.3 Seconds (22.0-36.0)
[2025-07-21] MEDS: HEPARIN SOD INJ 5000 UNIT/ML VIAL 1700 UNIT IVP (17:01)
[2025-07-21] MEDS: ATORVASTATIN CALCIUM 20 MG TABLET 40 MG PO (20:00)
--- NOTE | 2025-07-21 21:45 | PD.NEUROPROG ---
Documentation for date of: 07/21/25 Subjective Subjective Interval history: Patient was seen in telemetry today. Continued to have left sided weakness affecting the face and upper extremity more. Exam - Neurology Vital Signs Temp Pulse Resp BP Pulse Ox O2 Del Method 97.5 F 81 15 142/83 H 98 Room Air 07/21/25 16:00 07/21/25 16:00 07/21/25 16:00 07/21/25 16:00 07/21/25 16:00 07/21/25 16:00 Narrative Exam GENERAL APPEARANCE: Well hydrated, well-nourished in no acute distress. HEENT: Normocephalic, atraumatic, extraocular movements intact. Pupils: Equal reacting to light and accommodation NECK: Supple, no JVD or bruits. CARDIOVASULAR: Heart: S1, S2 heard, regular without S3-S4 or murmur no rubs or gallops. LUNGS/CHEST: Clear to auscultation bilaterally. No rails, rhonchi, or wheezing. Normal inspection. ABDOMEN: Soft, nontender, with normal bowel sounds. No pulsatile masses. No rebound, rigidity, or guarding. Normal inspection and palpation. EXTREMITIES: Normal inspection and palpation. No edema, clubbing or cyanosis. SKIN: Warm and dry without rashes. Normal inspection. MUSCULOSKELETAL: No cervical, thoracic, lumbar or midline bony tenderness. Normal inspection. NEURO: Alert, awake and oriented x3. Cranial nerves: II through XII grossly intact with the exception of left facial weakness. Speech and language: Normal with no dysarthria or dysphasia. Motor system: Tone and bulk: Normal: Strength: Left pronator drift noted. Deep tendon reflexes: 2+ bilaterally symmetrical. Plantar reflex: Downgoing bilaterally. Sensory system: Intact to all modalities of sensation bilaterally. Coordination: Intact to [id number] and [id number] test on the right. No ataxia, no dysmetria, or dysdiadochokinesia noted. No intention tremors noted. Gait: Not tested. no signs of meningeal irritation noted. PSYCHIATRIC: Normal mood and affect. Objective Labs 07/22/25 04:30 07/22/25 04:30 Labs: Laboratory Results - last 24 hr 07/21/25 07/21/25 07/21/25 00:44 05:02 08:46 WBC 6.9 RBC 4.48 Hgb 13.7 Hct 40.3 MCV 90 MCH 30.6 MCHC 34.0 RDW Std Deviation 44.2 Plt Count 209 D Neut % (Auto) 56 Lymph % (Auto) 21 [place] % (Auto) 10 Eos % (Auto) 12 H Baso % (Auto) 1 Neut # (Auto) 3.9 Lymph # (Auto) 1.4 [place]ha # (Auto) 0.7 Eos # (Auto) 0.8 H Baso # (Auto) 0.1 Immature Gran # (Auto) 0.02 H Absolute Nucleated RBC 0.00 Immature Gran % 0 Nucleated RBC % 0 APTT 43.9 H D 52.1 H Sodium 139 Potassium 3.6 D Chloride 104 Carbon Dioxide 22.6 Anion Gap 12 BUN 8 L Creatinine 0.6 Estim Creat Clear Calc 57.5 L eGFR > 60 BUN/Creatinine Ratio 13 Glucose 126 H Calculated Osmolality 277 Calcium 8.7 Corrected Calcium 8.8 Magnesium 1.7 Iron 49 L TIBC 287 Iron Saturation 17 L Unsat Iron Binding 238 Ferritin 43 Total Bilirubin 1.2 AST 25 ALT 9 L Alkaline Phosphatase 87 Total Protein 6.8 Albumin 3.9 Globulin 2.9 Albumin/Globulin Ratio 1.3 07/21/25 14:53 WBC RBC Hgb Hct MCV MCH MCHC RDW Std Deviation Plt Count Neut % (Auto) Lymph % (Auto) [place]ha % (Auto) Eos % (Auto) Baso % (Auto) Neut # (Auto) Lymph # (Auto) Desha # (Auto) Eos # (Auto) Baso # (Auto) Immature Gran # (Auto) Absolute Nucleated RBC Immature Gran % Nucleated RBC % APTT 44.3 H Sodium Potassium Chloride Carbon Dioxide Anion Gap BUN Creatinine Estim Creat Clear Calc eGFR BUN/Creatinine Ratio Glucose Calculated Osmolality Calcium Corrected Calcium Magnesium Iron TIBC Iron Saturation Unsat Iron Binding Ferritin Total Bilirubin AST ALT Alkaline Phosphatase Total Protein Albumin Globulin Albumin/Globulin Ratio Assessment & Plan Additional Assessment & Plan Additional Plan: 1) Acute CVA (cerebrovascular accident): Status: Acute Assessment and plan: with multiple embolic type infarcts bilaterally per MRI brain suggests cardiac origin suspect occult atrial fibrillation Agreed with anticoagulant therapy. continue to monitor her closely continue with PT/OT (2) Elevated troponin: trending down could be from demand ischemia (3) Aortic stenosis: Status: Chronic (4) Hypertension: Status: Chronic Assessment and plan: Continue with aggressive blood pressure control
[2025-07-21 23:55] LABS: Partial Thromboplastin Time 71.4 Seconds (22.0-36.0)
[2025-07-22] VITALS (18 sets, daily range): BP systolic 97–170; BP diastolic 57–91; PULSE 63–92; RESP 12–20; TEMP 36.1–37.1; O2SAT 95–99; BMI 23.3; BMI 23.4; BMI 13.0
[2025-07-22] MEDS: Heparin/D5w 25K 250 ML Ivpb 25,000 UNIT/250 ML BAG 9.217 UNIT IV (01:51)
[2025-07-22 06:09] LABS: Basophils # (Auto) 0.1 Thou/mm3 (0.0-0.2); Basophils % (Auto) 1 % (0-2.5); Eosinophils # (Auto) 0.8 Thou/mm3 (0.0-0.5); Eosinophils % (Auto) 10 % (0-10); Hematocrit 40.9 % (36.0-46.0); Hemoglobin 13.7 g/dL (12.0-16.0); Immature Granulocytes Auto 0.02 Thou/mm3 (0.00-0.00); Lymphocytes # (Auto) 2.1 Thou/mm3 (1.0-4.8); Lymphocytes % (Auto) 26 % (10-50); Mean Corpuscular HGB Conc 33.5 g/dl (31.0-37.0); Mean Corpuscular Hemoglobin 30.0 pg (25.0-35.0); Mean Corpuscular Volume 90 fL (80-100); Monocytes # (Auto) 0.7 Thou/mm3 (0.0-0.8); Monocytes % (Auto) 9 % (0-12); Neutrophils # (Auto) 4.3 Thou/mm3 (1.8-7.7); Neutrophils % (Auto) 54 % (37-80); Nucleated Red Blood Cell # 0.00 Thou/mm3 (0.00-0.00); Nucleated Red Blood Cell % 0 /100 WBC (0); Platelet Count 220 Thou/mm3 (140-440); RDW Standard Deviation 43.6 fL (36.4-46.3); Red Blood Count 4.57 Miln/mm3 (4.00-5.20); White Blood Count 8.0 Thou/mm3 (3.6-11.0)
[2025-07-22 06:32] LABS: Alanine Aminotransferase 11 U/L (10-49); Albumin, Serum 3.7 gm/dL (3.4-4.8); Albumin/Globulin Ratio 1.2 (1.2-2.2); Alkaline Phosphatase 83 U/L (46-116); Anion Gap 9 (7-16); Aspartate Amino Transferase 25 U/L (0-34); BUN/Creatinine Ratio 17 Ratio (12-20); Bilirubin,Total 0.6 mg/dL (0.3-1.2); Blood Urea Nitrogen 10 mg/dL (9-23); Calcium 9.3 mg/dL (8.3-10.6); Calcium (Corrected) 9.5 mg/dL (8.5-10.1); Carbon Dioxide 24.6 mMol/L (20.0-31.0); Chloride 103 mMol/L (98-107); Creatinine (Component) 0.6 mg/dL (0.6-1.3); Estimated Creatinine Clearance 51.9 mL/min (>60); Globulin 3.0 gm/dL (2.3-3.5); Glucose 130 mg/dL (74-106); Magnesium 1.8 mg/dL (1.6-2.6); Osmolality,Calculated 274 (275-295); Potassium 4.2 mMol/L (3.4-5.1); Sodium 137 mMol/L (136-145); Total Protein 6.7 gm/dL (5.7-8.2); eGFR > 60 See Note
[2025-07-22 06:44] LABS: INR 1.0 (0.9-1.3); Partial Thromboplastin Time 77.3 Seconds (22.0-36.0); Prothrombin Time 11.1 Seconds (9.0-12.2)
--- NOTE | 2025-07-22 09:40 | PD.NEPHPROG ---
Documentation for date of: 07/22/25 Subjective Subjective Interval history: Informant daughter Ms. Coker is a 84-year-old female with past medical history of hypertension, dyslipidemia, diabetes complete heart block status post Cleary dual chamber pacemaker (04/2025-Dr. 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 Patient reported that she went to bed last night around 6:30 PM, woke up around 8 PM yesterday night and noticed some left-sided facial droop and some dysarthria. Patient reported that she does not feel this is her normal voice and she is slurring, complains of some left-sided weakness and tingling sensation in the left arm and leg, otherwise patient does report some palpitations at times on and off episodes of heart racing . She denies any chest pain, chest pressure, shortness of breath, orthopnea, PND, dizziness, syncope, presyncope and falls. ED course: Vitals on presentation significant for blood pressure 168/87, labs pertinent for glucose 169, troponin 1.076, BNP 174. Urinalysis shows rare bacteria, leukocyte esterase positive, WBC 2. Urine drug screen negative, CBC unremarkable, CMP otherwise unremarkable except for findings as above. Stroke alert initiated in the ED chest x-ray in ED shows mild vascular congestion, head CT negative for acute hemorrhage mass effect or midline shift. CTA head and neck shows calcification of internal carotid arteries, some filling defects in bilateral jugular veins, no large vessel occlusion noted. EKG in ED shows paced rhythm, rate 96 and right jugular vein duplex negative for DVT. Telemetry strip showed questionable A-fib paroxysmal although difficult to assess due to her paced rhythm. Patient was seen by teleneurology for possible stroke and recommended MRI. Cardiology was consulted for mild elevation in troponin. Patient asymptomatic with any chest pain or shortness of breath. She was given 1 dose of Plavix and aspirin in the ED. And admitted to telemetry. Home medications included Tylenol, alendronate, Bumex, losartan, simvastatin 07/20/2025 patient currently seen telemetry. Daughter at bedside. MRI brain pending. Dr Cloud was consulted. Pacemaker is going to be interrogated right now. Suspect embolic stroke as a transmission superintendent shows paroxysmal atrial fibrillation. Left-sided weakness. Patient continues to have left facial droop with mild speech impairment,Had a long conversation with patient and daughter regarding rehab placement for short-term. They both agreed. Anticoagulation per neurology. Added moderate intensity statin. 07/22/2025 patient currently seen in telemetry. MRI showed embolic strokes. Echocardiogram showed no clot. Noted to be in [id number] was cardioverted. Spoke to Dr. Estephania Mcgarry recommended Eliquis, metoprolol Review of Systems Review of Systems Narrative Review of Systems: CONSTITUTIONAL: Patient denies any fever, chills. Complaining of fatigue HEENT: Denies any visual disturbances or hearing problems. CARDIOVASCULAR: Patient denies any chest pain, shortness of breath, swelling in the lower extremities. PULMONARY: Patient denies any shortness of breath, cough. GASTROINTESTINAL: Patient denies any abdominal pain, constipation, nausea, vomiting, diarrhea. GENITOURINARY: Patient denies any urinary symptoms of burning or frequency or hematuria, denies any form in the urine. SKIN: Denies any rash. MUSCULOSKELETAL: Denies any muscular skeletal problems of joint pains. NEUROLOGICAL: Complaining of left facial droop, speech impairment, left-sided weakness PSYCHIATRIC: Denies any depression or anxiety. LYMPHATICS : No lymphadenopathy Exam Vital Signs Temp Pulse Resp BP Pulse Ox O2 Del Method 36.2 C 84 18 139/70 H 97 Room Air 07/22/25 08:00 07/22/25 08:00 07/22/25 08:00 07/22/25 08:00 07/22/25 08:00 07/22/25 08:00 Narrative Exam GENERAL APPEARANCE: Patient seems to be comfortable, adequately hydrated and nourished. HEENT: Patient definitely has a left facial droop NECK: Neck supple, no JVD or bruit CARDIOVASCULAR: Heart regular, 3/6 murmurs. Pacemaker noted on the left chest LUNGS/CHEST: Chest clear to auscultation. No rales, rhonchi, wheezing ABDOMEN: Soft, nontender, nondistended. No masses. Normal bowel sounds. EXTREMITIES: No edema, clubbing or cyanosis. SKIN: Skin exam normal without any rashes MUSCULOSKELETAL: Musculoskeletal exam normal PSYCHIATRIC: Normal mood, affect LYMPHATICS: No lymphadenopathy noted NEUROLOGICAL : Left facial droop with left-sided weakness noted Objective Labs 07/22/25 04:30 07/22/25 04:30 Labs: Laboratory Results - last 24 hr 07/21/25 07/21/25 07/21/25 05:02 08:46 14:53 WBC RBC Hgb Hct MCV MCH MCHC RDW Std Deviation Plt Count Neut % (Auto) Lymph % (Auto) [place] % (Auto) Eos % (Auto) Baso % (Auto) Neut # (Auto) Lymph # (Auto) [place] # (Auto) Eos # (Auto) Baso # (Auto) Immature Gran # (Auto) Absolute Nucleated RBC Immature Gran % Nucleated RBC % PT INR APTT 52.1 H 44.3 H Sodium Potassium Chloride Carbon Dioxide Anion Gap BUN Creatinine Estim Creat Clear Calc eGFR BUN/Creatinine Ratio Glucose Calculated Osmolality Calcium Corrected Calcium Magnesium Iron 49 L TIBC 287 Iron Saturation 17 L Unsat Iron Binding 238 Ferritin 43 Total Bilirubin AST ALT Alkaline Phosphatase Total Protein Albumin Globulin Albumin/Globulin Ratio 07/21/25 07/22/25 23:05 04:30 WBC 8.0 RBC 4.57 Hgb 13.7 Hct 40.9 MCV 90 MCH 30.0 MCHC 33.5 RDW Std Deviation 43.6 Plt Count 220 Neut % (Auto) 54 Lymph % (Auto) 26 [place] % (Auto) 9 Eos % (Auto) 10 Baso % (Auto) 1 Neut # (Auto) 4.3 Lymph # (Auto) 2.1 [place] # (Auto) 0.7 Eos # (Auto) 0.8 H Baso # (Auto) 0.1 Immature Gran # (Auto) 0.02 H Absolute Nucleated RBC 0.00 Immature Gran % 0 Nucleated RBC % 0 PT 11.1 INR 1.0 APTT 71.4 H D 77.3 H Sodium 137 Potassium 4.2 D Chloride 103 Carbon Dioxide 24.6 Anion Gap 9 BUN 10 Creatinine 0.6 Estim Creat Clear Calc 51.9 L eGFR > 60 BUN/Creatinine Ratio 17 Glucose 130 H Calculated Osmolality 274 L Calcium 9.3 Corrected Calcium 9.5 Magnesium 1.8 Iron TIBC Iron Saturation Unsat Iron Binding Ferritin Total Bilirubin 0.6 D AST 25 ALT 11 Alkaline Phosphatase 83 Total Protein 6.7 Albumin 3.7 Globulin 3.0 Albumin/Globulin Ratio 1.2 Assessment & Plan Assessment and plan (1) Acute CVA (cerebrovascular accident): Status: Acute Assessment and plan: Patient seems to have left facial droop with left-sided weakness. CT brain and CTA negative. Will go proceed with MRI once okayed by cardiology. Did receive a dose of aspirin and Plavix in the ED. Suspect embolic stroke as patient seems to have paroxysmal atrial fibrillation on transmission superintendent per cardiology. MRI showed multiple embolic strokes.. Dr Cloud was consulted. Recommend anticoagulation--Eliquis Anticoagulation per Dr. Hoover and cardiology (2) Elevated troponin: Status: Acute Assessment and plan: Patient did not complain of any chest pain. Dr. Estephania Mcgarry was consulted. Recent pacemaker placement. (3) History of permanent cardiac pacemaker placement: Status: Acute Assessment and plan: Status post recent pacemaker placement which will be interrogated by cardiology. (4) Aortic stenosis: Status: Chronic Assessment and plan: Severe aortic stenosis. Was on Bumex at home will be resumed (5) Hypertension: Status: Chronic Assessment and plan: Will do permissive hypertension for now due to stroke (6) Diabetes: Status: Acute Assessment and plan: Accu-Chek, sliding scale. Check A1c (7) Hyperlipidemia: Status: Acute Assessment and plan: Switch simvastatin to atorvastatin Additional Assessment & Plan Additional Plan: Estimated length of stay 2 to 3 days DVT prophylaxis on heparin drip GI prophylaxis not needed Discharge disposition to rehab CODE STATUS full code
--- NOTE | 2025-07-22 10:00 | PC.SS ---
Rounding: Pending cardio reccs, DC plan STC
--- NOTE | 2025-07-22 10:56 | ESPR_ITS ---
Documentation for date of: 07/22/25 Subjective Subjective Interval history: No Overnight events. Labs reviewed and patient examined at the bedside. Patient's current blood pressure is 139/81 with pulse rate 88, creatinine 0.6 and urine output of 200 mL. Patient is currently n.p.o. Planned for NATALIE with bubble study. Currently on heparin drip, metoprolol 50 mg p.o. once a day, Bumex 1 mg p.o. once a day, atorvastatin 40 mg p.o. at bedtime. NATALIE completed today. Please see report. Increased Metoprolol 50mg to bid. Given IV Mag 4g x1, and started on Eliquis 2.5mg po bid. Discontinued heparin drip. Patient denies any chest pain, palpitations, shortness of breath, headaches, or vision changes. Exam Vital Signs Temp Pulse Resp BP Pulse Ox O2 Del Method 97.2 F 84 18 139/70 H 97 Room Air 07/22/25 08:00 07/22/25 08:00 07/22/25 08:00 07/22/25 08:00 07/22/25 08:00 07/22/25 08:00 Narrative Exam General: Awake and in no acute distress. Conversational and non-toxic appearing. Slurring of speech noted. HEENT: Normocephalic, atraumatic, mucous membranes moist. Left-sided facial droop noted. Heart: Regular paced rhythm, positive murmur mitral region and aortic area. Lungs: No crackles or wheezing appreciated bilaterally. Abdomen: Soft, nondistended, nontender, positive bowel sounds. ?No guarding or rebound tenderness. Neurologic: Alert and oriented x3, patient able to move all 4 extremities. Strength 4/5 in left upper and lower extremity, decreased relative to right side. Extremities: No edema. Skin: No rash or ecchymoses. Objective Labs 07/22/25 04:30 07/22/25 04:30 Labs: Laboratory Results - last 24 hr 07/21/25 07/21/25 07/21/25 05:02 14:53 23:05 WBC RBC Hgb Hct MCV MCH MCHC RDW Std Deviation Plt Count Neut % (Auto) Lymph % (Auto) [place] % (Auto) Eos % (Auto) Baso % (Auto) Neut # (Auto) Lymph # (Auto) [place] # (Auto) Eos # (Auto) Baso # (Auto) Immature Gran # (Auto) Absolute Nucleated RBC Immature Gran % Nucleated RBC % PT INR APTT 44.3 H 71.4 H D Sodium Potassium Chloride Carbon Dioxide Anion Gap BUN Creatinine Estim Creat Clear Calc eGFR BUN/Creatinine Ratio Glucose Calculated Osmolality Calcium Corrected Calcium Magnesium Iron 49 L TIBC 287 Iron Saturation 17 L Unsat Iron Binding 238 Ferritin 43 Total Bilirubin AST ALT Alkaline Phosphatase Total Protein Albumin Globulin Albumin/Globulin Ratio 07/22/25 04:30 WBC 8.0 RBC 4.57 Hgb 13.7 Hct 40.9 MCV 90 MCH 30.0 MCHC 33.5 RDW Std Deviation 43.6 Plt Count 220 Neut % (Auto) 54 Lymph % (Auto) 26 [place] % (Auto) 9 Eos % (Auto) 10 Baso % (Auto) 1 Neut # (Auto) 4.3 Lymph # (Auto) 2.1 [place] # (Auto) 0.7 Eos # (Auto) 0.8 H Baso # (Auto) 0.1 Immature Gran # (Auto) 0.02 H Absolute Nucleated RBC 0.00 Immature Gran % 0 Nucleated RBC % 0 PT 11.1 INR 1.0 APTT 77.3 H Sodium 137 Potassium 4.2 D Chloride 103 Carbon Dioxide 24.6 Anion Gap 9 BUN 10 Creatinine 0.6 Estim Creat Clear Calc 51.9 L eGFR > 60 BUN/Creatinine Ratio 17 Glucose 130 H Calculated Osmolality 274 L Calcium 9.3 Corrected Calcium 9.5 Magnesium 1.8 Iron TIBC Iron Saturation Unsat Iron Binding Ferritin Total Bilirubin 0.6 D AST 25 ALT 11 Alkaline Phosphatase 83 Total Protein 6.7 Albumin 3.7 Globulin 3.0 Albumin/Globulin Ratio 1.2 Quality Measures Quality Measures stroke Suspected type of Stroke: Acute Ischemic Last known well (date): 07/18/25 Last known well (time): 18:00 Tenecteplase given: Reason(s) Tenecteplase not given: Outside the time window and Stroke severity too mild (non-disabling) not given Rehab services: PT evaluation ordered VTE Prophylaxis: pharmaceutical Antithrombotic by day 2:: not indicated (describe) Statin ordered: >75 y/o moderate or high intensity dose Anticoagulation ordered for A-fib or flutter (current or hx): ordered Advance care planning discussed with:: patient Assessment & Plan Assessment Current Active Medications: Generic Name Dose Route Start Last Admin Trade Name Freq PRN Reason Stop Dose Admin Acetaminophen 500 mg 07/20/25 05:40 07/21/25 19:59 Acetaminophen 500 Mg Tablet PO 08/19/25 05:39 500 mg Q6HR PRN Administration pain 1-3 or Temp 101 Atorvastatin Calcium 40 mg 07/19/25 21:00 07/21/25 20:00 Atorvastatin Calcium 20 Mg Tablet PO 08/18/25 20:59 40 mg HS HYACINTH Administration Bumetanide 1 mg 07/20/25 11:15 07/21/25 08:11 Bumetanide 0.5 Mg Tablet PO 08/19/25 11:14 1 mg QDAY HYACINTH Administration Heparin Sodium/Dextrose 25,000 unit in 250 mls @ 6.913 mls/hr 07/20/25 18:30 07/22/25 06:57 Heparin In D5w Ivpb IV 08/03/25 18:29 16 units/kg/hr .Q24H HYACINTH 9.217 mls/hr Protocol Titration 12 UNITS/KG/HR Metoprolol Succinate 50 mg 07/21/25 10:15 07/21/25 10:53 Metoprolol Succinate Xl 25 Mg Tabcr PO 08/20/25 10:14 50 mg QDAY HYACINTH Administration Ondansetron HCl 4 mg 07/19/25 06:27 Ondansetron Inj 2 Mg/Ml Inj 2 Ml IVP 08/18/25 06:26 Q4H PRN NAUSEA OR VOMITING Pharmacy Consult 1 each 07/20/25 03:24 Pharmacy To Consult Pneumovacc XX 08/19/25 03:23 PRN PRN CONSULT Plan Summary: Ms. 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 Patient admitted for CVA workup and cardiology consulted for Elevated troponin. #Multiple acute embolic infarcts #Atrial fibrillation, rate controlled #Status Post Cleary Dual Chamber Pacemaker (04/2025), history of complete heart block #Moderate aortic stenosis #Severe MAC with mild to moderate MS - Severe thickening and calcification of the mitral valve leaflets and chordae tendonae Patient presented with left-sided facial droop, paresthesia and dysarthria. Left upper extremity and lower extremity weakness noted on physical exam, left- sided facial droop noted. EKG shows paced rhythm, there is suspicion of atrial fibrillation considering patient does have increased LA diameter secondary to severe MAC/mild to moderate mitral stenosis. At bedside patient noted to have irregular rate. Patient had pacemaker placed in April due to history of sick sinus syndrome, complete heart block and symptomatic bradycardia. Patient completed antibiotic treatment after. Was seen in office outpatient. Cardiac clearance signed and given to geothermal hvac technician, pacemaker is more than 6 weeks old and is MRI compatible. 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 Ventricular capturing threshold 0.75 Volts @ 0.4 ms, Sensing 8.9 millivolts. Lead impedance 710 ohms. The patient is programmed DDDR mode, baseline rate of 60 bpm, maximum track rate 130 beats bpm, Paced and Sensed AV delay of 180 ms. Echocardiogram 07/19/2025: 1. Left ventricle size is normal and systolic function is normal. Estimated ejection fraction is 60-65%. There is grade I diastolic dysfunction. 2. Right ventricle chamber size is normal and systolic function is normal. Estimated RVSP is 32 mmHg with RAP 3. Estimated mild PHTN. 3. There is mild aortic valve stenosis and no regurgitation. Possibly under estimated. 4. There is mild to moderate mitral valve stenosis and moderate regurgitation. Mean gradient of 7mmHg. Severe MAC. Severe thickening and calcification of the mitral valve leaflets as well as the chordae tendon knee. 5. There is mild tricuspid and pulmonic valve regurgitation. 6. There is trivial pericardial effusion with no tamponade. Patient denies any kind of swallowing problems or any kind of esophageal interventions or previous surgeries. Patient denies any kind of gastric ulcers bleeding and any other hematemesis or hematochezia. Patient denies any issues with anesthesia previously. Patient explained all the risks, benefits and alternatives of NATALIE including the risk of perforation, bleeding, respiratory failure secondary to sedation, injury to teeth gums esophagus and stomach. Patient understands all risks and benefits and provided consent for the procedure. Patient n.p.o. overnight and plan for NATALIE this afternoon. Recommendations: Pacemaker interrogation performed; underlying rhythm irregular consistent with atrial fibrillation, no episodes of RVR noted. Increased Metoprolol 50mg to bid. Given IV Mag 4g x1, and started on Eliquis 2.5mg po bid. Discontinued heparin drip. Keep potassium greater than 4 and magnesium greater than 2 at all times #ACS Workup, NSTEMI likely Type II vs less likely type I #Elevated Troponin Presented with chief complaint of left-sided facial droop, paresthesias and dysarthria. Also complains of some left-sided weakness and tingling sensation in the left arm and leg. Denies any chest pain, otherwise patient does report some palpitations at times on and off episodes of heart racing . EKG in ED shows paced rhythm, rate 96. Troponin on presentation 1.076 -> 1.168 - > 1.185 -> 0.910 -> 0.798 ART ACS Risk and Mortality Calculator: 123 points; 8 % Probability of from admission to 6 months HEART Score for Major Cardiac Events: 5 points Risk of MACE of 12-16.6%. CHRISTIAN Risk Score for UA/NSTEMI: 3 points, 13% risk at 14 days of: all-cause mortality, new or recurrent [place], or severe recurrent ischemia requiring urgent revascularization. Lipid panel: Cholesterol 123, LDL 56, HDL 52, triglycerides 74; TSH: 1.74; hemoglobin A1c: 5.8 Echocardiogram negative for any regional wall abnormality. Patient was given Plavix 300 mg p.o. x 1 and aspirin 81 mg p.o. x 1 per teleneuro recommendations. Recommendations: MRI positive for multiple acute embolic infarcts, started on heparin gtt., will be discharged on Eliquis 2.5 mg twice daily, no aspirin or Plavix indicated. Patient presented with CVA, no chest pain elevated troponin likely secondary to demand ischemia in setting of possible CVA. Patient will need outpatient workup with stress test #Chronic congestive diastolic heart failure with preserved ejection fraction, EF 60-70% Mild vascular congestion noted on chest x-ray, patient stable on room air. -Continue home dose Bumex 1 mg p.o. daily - Iron panel shows depleted stores iron 49, Feraheme 510 mg x 1 ordered #Hypertension On metoprolol XL 50 mg bid #Hyperlipidemia Continue atorvastatin #Type 2 DM #Multiple acute embolic infarct #Iron deficiency Management per primary team Thank you for the consult and allowing to participate in the care of the patient. Cardiology will continue to follow. Assessment and plan discussed with my attending physician Dr. Joe Trujillo (PGY-1) - Internal medicine resident Attending Provider Attestation/Addendum I have personally seen and examined the patient separately on the above date of service and discussed the plan of care with the resident. I reviewed the resident Dr. Juany Trujillo consultation progress note and agree with the resident findings and plan in the note above and have also edited the documentation to reflect my findings and plan. Jose C Diaz M.D. Interventional Cardiology
--- NOTE | 2025-07-22 12:00 | ECHO_ITS ---
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 Saline: Agitated Saline Amount: --- ml IV Access Condition: patent with no signs of infiltration Primary Location: S2NX Mitral Valve Name Value Normal MV Doppler MV Mean Gradient 67 mmHg MV Regurgitation Doppler MV EROA (PISA) 0.29 cm2 MR Volume (PISA) 54 ml Medications * Versed 2.00 mg. * Fentanyl 50.00 mg. Left Ventricle Left ventricular chamber dimension is normal. Left ventricular systolic function is normal with visually estimated ejection fraction of 55-60%. There is normal geometry noted in the left ventricle. There is indeterminate diastolic function in the left ventricle. Right Ventricle Right ventricular chamber dimension is normal. Right ventricular systolic function is normal. Left Atrium Left atrial chamber dimension is normal. There is no thrombus visualized in the left atrium. There is no thrombus visualized in the left atrial appendage. Right Atrium Right atrial chamber dimension is normal. Aortic Valve The aortic valve is trileaflet. There is trace aortic valve regurgitation. Pulmonic Valve The pulmonic valve is normal. There is trace pulmonic regurgitation. Mitral Valve The mitral valve has a calcified annulus. There is severe mitral valve stenosis. Moderate to severe MAC, Moderate MR VTI 182cm, PISA of 0.8cm, EROA of 0.29cm2, regurgitant volume of 54ml. Moderate to severe MAC. Trivial mitral mitral stenosis. Tricuspid Valve The tricuspid valve leaflets are normal. There is mild tricuspid valve regurgitation. Pericardium/Pleural There is no pericardial effusion. The pericardium appears normal. Summary 1. Indication: CVA with bubble Study and Cardioversion. 2. Bubble study negative for PFO/ASD. No evidence LA/CHRISTOPH thrombus. Mild atheroma seen in the ascending arch and descending aorta. 3. Left ventricle size is normal and systolic function is normal. Estimated ejection fraction is 50-55%. 4. Normal RV size and function. Pacer wires noted in RA and RV with no vegetations. 5. Moderate MR VTI 182cm, PISA of 0.8cm, EROA of 0.29cm2, regurgitant volume of 54ml. Moderate to severe MAC. Trivial mitral mitral stenosis. 6. Mild TR. Trace AI and PI. No pericardial effusion. Report Signatures Finalized by Jose C Diaz on 07/22/2025 06:38 PM
--- NOTE | 2025-07-22 13:24 | PD.CARDOPNOT ---
Procedure Direct current cardioversion for uncontrolled atrial fibrillation Moderate Conscious Sedation with Versed and Fentanyl Date of Procedure 07/22/25 Pre Op Diagnosis Atrial Fibrillation Indication Atrial Fibrillation Post Op Diagnosis Normal Sinus Rhythm restored. Procedure Description Patient was in atrial fibrillation and ventricular rate was controlled came in for elective cardioversion as patient was having significant symptoms for the Afib. Decision was made to perform cardioversion for the patient after performing a transesophageal echocardiogram. Transesophageal echocardiogram was completed today and did not show any significant LA or CHRISTOPH thrombus.? Please see NATALIE report from today for rest of the findings.? Patient was already on anticoagulation with eliquis.. Patient was taken to the lab support technician for the NATALIE and cardioversion, both anterior and posterior pads were placed.? Patient was given moderate sedation and received a total of 2 mg of Versed and 50 mcg of fentanyl prior to the procedure to provide him enough for sedation. A biphasic defibrillator was used.? A single 120 J synchronized shock was given and the patient converted successfully into normal sinus rhythm.? No complications during or after the procedure.? Patient is doing well.? His heart rate was stable between 50 to 70 bpm and appears to be normal sinus rhythm on the telemetry.? Recommend to perform an EKG to document normal sinus rhythm postprocedure.? Patient will be monitored in the lab support technician for the next 1-2 hours and will be discharged home if hemodynamically stable. Will adjust his medications for atrial fibrillation as outpatient. Estimated Blood Loss 0 Specimen(s) Specimen(s): None Conclusion Successful direct current cardioversion of Atrial Fibrillation to Normal Sinus Rhythm Recommendation Continue metoprolol XL 50 mg BID if BP stable and will adjust medications in the office as outpatient. Continue Eliquis 2.5 mg BID for anticaogulation. EKG to document NSR post procedure. No driving for 24 hours. Patient recommended to follow up in 1 week in the clinic. Surgical Staff Surgeon: Jose C Diaz MD
--- NOTE | 2025-07-22 14:19 | EKG_ITS ---
[facility] Test Date: 2025-07-22 Pat Name: BARAK SANTANA Department: Room: [facility] Gender: Female Disability Benefits Specialist: : 1940 Requested By: Jose C Diaz Order Number: [id number] Reading MD: Jose C Diaz Measurements Intervals [place] Rate: 95 P: 53 MS: 217 QRS: -75 QRSD: 148 T: 91 QT: 435 QTc: 548 Interpretive Statements ELECTRONIC VENTRICULAR PACEMAKER ABNORMAL RHYTHM ECG Compared to ECG 07/19/2025 12:05:46 No significant changes /store/S0/[id number]
[2025-07-22 14:29] LABS: Partial Thromboplastin Time 60.9 Seconds (22.0-36.0)
[2025-07-22] MEDS: BENZOCAINE 20% (Hurricaine) SPRAY 1 DOSE TOP (14:30)
[2025-07-22] MEDS: MIDAZOLAM INJ 1 MG/ML VIAL 2 ML 2 MG IVP (14:31)
[2025-07-22] MEDS: fentaNYL CIT INJ 50 mCg/ML AMP 2ML IVP (14:33)
--- NOTE | 2025-07-22 14:57 | EKG_ITS ---
[facility] Test Date: 2025-07-22 Pat Name: BARAK SANTANA Department: Room: [facility] Gender: Female Through Operator: : 1940 Requested By: Juany Trujillo Order Number: [id number] Reading MD: Juany Trujillo Measurements Intervals [place] Rate: 85 P: 19 SC: 217 QRS: -71 QRSD: 149 T: 100 QT: 465 QTc: 556 Interpretive Statements ELECTRONIC VENTRICULAR PACEMAKER ABNORMAL RHYTHM ECG Compared to ECG 07/22/2025 14:24:07 No significant changes /store/S0/[id number]
[2025-07-22] MEDS: APIXABAN 2.5 MG TABLET PO ×2 (15:44→20:25)
[2025-07-22] MEDS: METOPROLOL SUCCINATE XL 25 MG TABCR 50 MG PO ×2 (15:50→20:25)
[2025-07-22] MEDS: ACETAMINOPHEN 500 MG TABLET PO ×2 (15:55→23:19)
[2025-07-22] MEDS: Magnesium Sulfate 4 GM Ivpb 4 GM/50 ML BAG IV (15:55)
--- NOTE | 2025-07-22 16:34 | PC.PT ---
Patient is safe to ambulate to the bathroom and in the halls with 1 staff and a FWW. RN made aware.
[2025-07-22] MEDS: ATORVASTATIN CALCIUM 20 MG TABLET 40 MG PO (20:25)
[2025-07-23] VITALS: BP 129/78; PULSE 66; PULSE 68; RESP 15; TEMP 36.1; O2SAT 94
--- NOTE | 2025-07-23 00:23 | PD.DDS ---
Documentation for date of: 07/23/25 Summary Date and Time Date of admission: 07/19/25 16:59 Additional Data Attending physician: Jose C Diaz MD Visit Providers Provider Primary care physician: Otilio Rizvi MD Consults: 07/19/25 06:27 Consult to Neurology / Tele-Neurology Routine Comment: Consulting Provider: [facility] 07/19/25 17:06 Consult to Cardiology Stat Comment: elevated trop, pacemaker Consulting Provider: Jose C Diaz 07/20/25 11:37 Consult to Neurology / Tele-Neurology Stat Comment: CVA Workup Consulting Provider: Blaine Cloud 07/20/25 11:39 Referral Physical Therapy Routine Comment: Physician Instructions: Referral Speech Therapy Routine Comment: Diagnosis Contributing Factors (1) Acute CVA (cerebrovascular accident): (2) Elevated troponin: (3) History of permanent cardiac pacemaker placement: (4) Aortic stenosis: (5) Hypertension: (6) Diabetes: (7) Hyperlipidemia: Discharge Plan Plan Patient Disposition: [facility] (SNF) Patient condition on transfer: Stable Prescriptions/Referrals Prescriptions/Med Rec: New atorvastatin 20 mg Tablet 40 mg PO HS Qty: 30 0RF metoprolol succinate 25 mg Tablet Extended Release 24 Hr 50 mg PO QDAY Qty: 30 0RF Eliquis 2.5 mg tablet 2.5 mg PO BID Qty: 60 0RF Continued acetaminophen [Tylenol Extra Strength] 500 mg tablet 500 mg PO Q6H PRN (Reason: pain) Qty: 30 0RF bumetanide 1 mg tablet 1 mg PO QDAY Patient Comments: TAKE ONE TABLET BY MOUTH EVERY MORNING A DIURETIC Discontinued simvastatin 40 mg tablet 40 mg PO QDAY Patient Comments: TAKE ONE TABLET BY MOUTH AT BEDTIME FOR CHOLESTEROL alendronate 35 mg tablet 35 mg PO QAM Patient Comments: TAKE ONE TABLET BY MOUTH EVERY WEEK IN THE MORNING WITH GLASS OF WATER 30min BEFORE food losartan 100 mg tablet 100 mg PO QDAY Patient Comments: TAKE ONE TABLET BY MOUTH EVERY MORNING FOR BLOOD PRESSURE Referrals: Otilio Rizvi MD [Primary Care Provider, Nephrology] Patient/Caregiver Discharge Instructions Discharge Activity: activity as tolerated Education Materials: Discharge Instructions for Stroke Print Language: Macanese Activity Restrictions/Additional Instructions: OT/PT/Speech therapy Stand Alone Forms: [facility] Award Info., Patient Portal Info Letter
[2025-07-23 04:00] VITALS: BP 156/76; PULSE 62; PULSE 68; RESP 15; TEMP 36.1; O2SAT 99
[2025-07-23 05:40] LABS: Magnesium 2.4 mg/dL (1.6-2.6)
[2025-07-23 08:00] VITALS: BP 162/79; PULSE 69; PULSE 79; RESP 15; TEMP 36.5; O2SAT 96
[2025-07-23 08:12] VITALS: BP 162/79; PULSE 69
[2025-07-23] MEDS: METOPROLOL SUCCINATE XL 25 MG TABCR 50 MG PO (08:12)
[2025-07-23] MEDS: APIXABAN 2.5 MG TABLET PO (08:12)
--- NOTE | 2025-07-23 08:14 | ESDS_ITS ---
Planned Discharge Date 07/23/25 DS: Providers Provider Date of admission: 07/19/25 16:59 Primary care physician: Otilio Rizvi MD Admitting Provider: Otilio Rizvi MD Attending Provider on Admission: Jose C Diaz MD Consults: 07/19/25 06:27 Consult to Neurology / Tele-Neurology Routine Comment: Consulting Provider: [facility] 07/19/25 17:06 Consult to Cardiology Stat Comment: elevated trop, pacemaker Consulting Provider: Jose C Diaz 07/20/25 11:37 Consult to Neurology / Tele-Neurology Stat Comment: CVA Workup Consulting Provider: Blaine Cloud 07/20/25 11:39 Referral Physical Therapy Routine Comment: Physician Instructions: Referral Speech Therapy Routine Comment: Attending Provider on DC: Otilio Rizvi MD Discharging Provider: Otilio Rizvi MD Discharge Diagnosis Discharge Diagnosis (1) Acute CVA (cerebrovascular accident): Status: Acute (2) Elevated troponin: Status: Acute (3) History of permanent cardiac pacemaker placement: Status: Acute (4) Aortic stenosis: Status: Chronic (5) Hypertension: Status: Chronic (6) Diabetes: Status: Acute (7) Hyperlipidemia: Status: Acute Problem List Completed Was Problem List Reviewed/Reconciled?: Yes Hospital Course Hospital Course Hospital course: Informant daughter Ms. Coker is a 84-year-old female with past medical history of hypertension, dyslipidemia, diabetes complete heart block status post Cleary dual chamber pa cemaker (04/2025-Dr. 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 Patient reported that she went to bed last night around 6:30 PM, woke up around 8 PM yesterday night and noticed some left-sided facial droop and some dysarthria. Patient reported that she does not feel this is her normal voice and she is slurring, complains of some left-sided weakness and tingling sensation in the left arm and leg, otherwise patient does report some palpitations at times on and off episodes of heart racing . She denies any chest pain, chest pressure, shortness of breath, orthopnea, PND, dizziness, syncope, presyncope and falls. ED course: Vitals on presentation significant for blood pressure 168/87, labs pertinent for glucose 169, troponin 1.076, BNP 174. Urinalysis shows rare bacteria, leukocyte esterase positive, WBC 2. Urine drug screen negative, CBC unremarkable, CMP otherwise unremarkable except for findings as above. Stroke alert initiated in the ED chest x-ray in ED shows mild vascular congestion, head CT negative for acute hemorrhage mass effect or midline shift. CTA head and neck shows calcification of internal carotid arteries, some filling defects in bilateral jugular veins, no large vessel occlusion noted. EKG in ED shows paced rhythm, rate 96 and right jugular vein duplex negative for DVT. Telemetry strip showed questionable A-fib paroxysmal although difficult to assess due to her paced rhythm. Patient was seen by teleneurology for possible stroke and recommended MRI. Cardiology was consulted for mild elevation in troponin. Patient asymptomatic with any chest pain or shortness of breath. She was given 1 dose of Plavix and aspirin in the ED. And admitted to telemetry. Home medications included Tylenol, alendronate, Bumex, losartan, simvastatin 07/20/2025 patient currently seen telemetry. Daughter at bedside. MRI brain pending. Dr Cloud was consulted. Pacemaker is going to be interrogated right now. Suspect embolic stroke as a awake overnight monitor shows paroxysmal atrial fibrillation. Left-sided weakness. Patient continues to have left facial droop with mild speech impairment,Had a long conversation with patient and daughter regarding rehab placement for short-term. They both agreed. Anticoagulation per neurology. Added moderate intensity statin. 07/22/2025 patient currently seen in telemetry. MRI showed embolic strokes. Echocardiogram showed no clot. Noted to be in [id number] was cardioverted. Spoke to Dr. Estephania Mcgarry recommended Eliquis, metoprolol 07/23/2025 patient currently seen in telemetry. She is going to be discharged to rehab on Eliquis and metoprolol. Status at Discharge Cognitive/behavioral status at discharge: stable Functional status at discharge: independent ambulation Overall status at discharge: patient is progressing back to baseline Time Spent with Patient Time attestation: Total time spent providing and/or coordinating discharge services: Exam Vital Signs Temp Pulse Resp BP Pulse Ox O2 Del Method O2 Flow Rate 36.1 C 68 15 156/76 H 99 Room Air 2 07/23/25 04:00 07/23/25 04:00 07/23/25 04:00 07/23/25 04:00 07/23/25 04:00 07/23/25 00:00 07/22/25 15:00 Narrative Exam GENERAL APPEARANCE: Patient seems to be comfortable, adequately hydrated and nourished. HEENT: Patient definitely has a left facial droop NECK: Neck supple, no JVD or bruit CARDIOVASCULAR: Heart regular, 3/6 murmurs. Pacemaker noted on the left chest LUNGS/CHEST: Chest clear to auscultation. No rales, rhonchi, wheezing ABDOMEN: Soft, nontender, nondistended. No masses. Normal bowel sounds. EXTREMITIES: No edema, clubbing or cyanosis. SKIN: Skin exam normal without any rashes MUSCULOSKELETAL: Musculoskeletal exam normal PSYCHIATRIC: Normal mood, affect LYMPHATICS: No lymphadenopathy noted NEUROLOGICAL : Left facial droop with left-sided weakness noted Discharge Plan Plan Patient Disposition: [facility] Patient condition on transfer: Stable Prescriptions/Referrals Prescriptions/Med Rec: New atorvastatin 20 mg Tablet 40 mg PO HS Qty: 30 0RF Eliquis 2.5 mg tablet 2.5 mg PO BID Qty: 60 0RF metoprolol succinate 25 mg Tablet Extended Release 24 Hr 50 mg PO BID Qty: 60 0RF Continued acetaminophen [Tylenol Extra Strength] 500 mg tablet 500 mg PO Q6H PRN (Reason: pain) Qty: 30 0RF bumetanide 1 mg tablet 1 mg PO QDAY Patient Comments: TAKE ONE TABLET BY MOUTH EVERY MORNING A DIURETIC Discontinued simvastatin 40 mg tablet 40 mg PO QDAY Patient Comments: TAKE ONE TABLET BY MOUTH AT BEDTIME FOR CHOLESTEROL alendronate 35 mg tablet 35 mg PO QAM Patient Comments: TAKE ONE TABLET BY MOUTH EVERY WEEK IN THE MORNING WITH GLASS OF WATER 30min BEFORE food losartan 100 mg tablet 100 mg PO QDAY Patient Comments: TAKE ONE TABLET BY MOUTH EVERY MORNING FOR BLOOD PRESSURE Referrals: Otilio Rizvi MD [Primary Care Provider, Nephrology] Patient/Caregiver Discharge Instructions Discharge Activity: activity as tolerated Education Materials: Discharge Instructions for Stroke Print Language: Telugu Activity Restrictions/Additional Instructions: OT/PT/Speech therapy Stand Alone Forms: [facility] Award Info., Patient Portal Info Letter Discharge Order Discharge Orders: Discharge (Routine); Ordered 07/23/25 Ordered By: Otilio Rizvi
[2025-07-23 08:17] VITALS: BP 162/79; PULSE 69
[2025-07-23] MEDS: BUMETANIDE 0.5 MG TABLET 1 MG PO (08:17)
[2025-07-23] MEDS: ACETAMINOPHEN 500 MG TABLET PO (08:22)
--- NOTE | 2025-07-23 08:42 | PD.RESPRO ---
Documentation for date of: 07/23/25 Subjective Subjective Interval history: Patient seen and examined at bedside, status post NATALIE and cardioversion yesterday. underlying rhythm NSR. Patient's blood pressure tolerating metoprolol 50 mg twice daily, continue Patient started on Eliquis 2.5 mg twice daily, continue Discharge on Bumex 1 mg p.o. daily and atorvastatin 40 mg at bedtime. Follow-up outpatient in clinic in the next week Exam Vital Signs Temp Pulse Resp BP Pulse Ox O2 Del Method O2 Flow Rate 96.9 F 69 15 162/79 H 99 Room Air 2 07/23/25 04:00 07/23/25 08:17 07/23/25 04:00 07/23/25 08:17 07/23/25 04:00 07/23/25 00:00 07/22/25 15:00 Narrative Exam General: Awake and in no acute distress. Conversational and non-toxic appearing. Slurring of speech noted. HEENT: Normocephalic, atraumatic, mucous membranes moist. Left-sided facial droop noted. Heart: Regular paced rhythm, positive murmur mitral region and aortic area. Lungs: No crackles or wheezing appreciated bilaterally. Abdomen: Soft, nondistended, nontender, positive bowel sounds. ?No guarding or rebound tenderness. Neurologic: Alert and oriented x3, patient able to move all 4 extremities. Strength 4/5 in left upper and lower extremity, decreased relative to right side. Extremities: No edema. Skin: No rash or ecchymoses. Objective Labs 07/22/25 04:30 07/22/25 04:30 Labs: Laboratory Results - last 24 hr 07/22/25 07/23/25 13:34 04:43 APTT 60.9 H D Magnesium 2.4 Quality Measures Quality Measures stroke Suspected type of Stroke: Acute Ischemic Last known well (date): 07/18/25 Last known well (time): 18:00 Tenecteplase given: Reason(s) Tenecteplase not given: Outside the time window and Stroke severity too mild (non-disabling) not given Rehab services: PT evaluation ordered and Speech Language Pathology eval ordered VTE Prophylaxis: pharmaceutical Antithrombotic by day 2:: not indicated (describe) Statin ordered: >75 y/o moderate or high intensity dose Anticoagulation ordered for A-fib or flutter (current or hx): ordered Advance care planning discussed with:: patient Assessment & Plan Assessment Current Active Medications: Generic Name Dose Route Start Last Admin Trade Name Freq PRN Reason Stop Dose Admin Acetaminophen 500 mg 07/20/25 05:40 07/23/25 08:22 Acetaminophen 500 Mg Tablet PO 08/19/25 05:39 500 mg Q6HR PRN Administration pain 1-3 or Temp 101 Apixaban 2.5 mg 07/22/25 15:00 07/23/25 08:12 Apixaban 2.5 Mg Tablet PO 08/21/25 14:59 2.5 mg BID HYACINTH Administration Atorvastatin Calcium 40 mg 07/19/25 21:00 07/22/25 20:25 Atorvastatin Calcium 20 Mg Tablet PO 08/18/25 20:59 40 mg HS HYACINTH Administration Bumetanide 1 mg 07/20/25 11:15 07/23/25 08:17 Bumetanide 0.5 Mg Tablet PO 08/19/25 11:14 1 mg QDAY HYACINTH Administration Metoprolol Succinate 50 mg 07/22/25 15:15 07/23/25 08:12 Metoprolol Succinate Xl 25 Mg Tabcr PO 08/21/25 15:14 50 mg BID HYACINTH Administration Ondansetron HCl 4 mg 07/19/25 06:27 Ondansetron Inj 2 Mg/Ml Inj 2 Ml IVP 08/18/25 06:26 Q4H PRN NAUSEA OR VOMITING Pharmacy Consult 1 each 07/20/25 03:24 Pharmacy To Consult Pneumovacc XX 08/19/25 03:23 PRN PRN CONSULT Plan Summary: Ms. 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 Patient admitted for CVA workup and cardiology consulted for Elevated troponin. #Multiple acute embolic infarcts #Atrial fibrillation, rate controlled status post NATALIE and cardioversion 07/22/25 #Status Post Cleary Dual Chamber Pacemaker (04/2025), history of complete heart block #Moderate aortic stenosis #Severe MAC with mild to moderate MS - Severe thickening and calcification of the mitral valve leaflets and chordae tendonae Patient presented with left-sided facial droop, paresthesia and dysarthria. Left upper extremity and lower extremity weakness noted on physical exam, left-sided facial droop noted. EKG shows paced rhythm, there is suspicion of atrial fibrillation considering patient does have increased LA diameter secondary to severe MAC/mild to moderate mitral stenosis. At bedside patient noted to have irregular rate. Patient had pacemaker placed in April due to history of sick sinus syndrome, complete heart block and symptomatic bradycardia. Patient completed antibiotic treatment after. Was seen in office outpatient. Cardiac clearance signed and given to fiberglass quality technician, pacemaker is more than 6 weeks old and is MRI compatible. 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 Ventricular capturing threshold 0.75 Volts @ 0.4 ms, Sensing 8.9 millivolts. Lead impedance 710 ohms. The patient is programmed DDDR mode, baseline rate of 60 bpm, maximum track rate 130 beats bpm, Paced and Sensed AV delay of 180 ms. Transthoracic echocardiogram 07/19/2025: 1. Left ventricle size is normal and systolic function is normal. Estimated ejection fraction is 60-65%. There is grade I diastolic dysfunction. 2. Right ventricle chamber size is normal and systolic function is normal. Estimated RVSP is 32 mmHg with RAP 3. Estimated mild PHTN. 3. There is mild aortic valve stenosis and no regurgitation. Possibly under estimated. 4. There is mild to moderate mitral valve stenosis and moderate regurgitation. Mean gradient of 7mmHg. Severe MAC. Severe thickening and calcification of the mitral valve leaflets as well as the chordae tendon knee. 5. There is mild tricuspid and pulmonic valve regurgitation. 6. There is trivial pericardial effusion with no tamponade. Transesophageal echocardiogram 07/22/2035: 1. Indication: CVA with bubble Study and Cardioversion. 2. Bubble study negative for PFO/ASD. No evidence LA/CHRISTOPH thrombus. Mild atheroma seen in the ascending arch and descending aorta. 3. Left ventricle size is normal and systolic function is normal. Estimated ejection fraction is 50-55%. 4. Normal RV size and function. Pacer wires noted in RA and RV with no vegetations. 5. Moderate MR VTI 182cm, PISA of 0.8cm, EROA of 0.29cm2, regurgitant volume of 54ml. Moderate to severe MAC. Trivial mitral mitral stenosis. 6. Mild TR. Trace AI and PI. No pericardial effusion. Recommendations: NATALIE performed yesterday, acute infarct ruled out, patient cardioverted successfully. EKG post cardioversion shows paced rhythm with underlying NSR, rate 85 Pacemaker interrogation performed; underlying rhythm irregular consistent with atrial fibrillation, no episodes of RVR noted. Continue metoprolol 50 mg twice daily, Eliquis 2.5 mg twice daily Will follow outpatient, interrogate pacemaker to assess A-fib burden/occurrence. Keep potassium greater than 4 and magnesium greater than 2 at all times #ACS Workup, NSTEMI likely Type II vs less likely type I #Elevated Troponin Presented with chief complaint of left-sided facial droop, paresthesias and dysarthria. Also complains of some left-sided weakness and tingling sensation in the left arm and leg. Denies any chest pain, otherwise patient does report some palpitations at times on and off episodes of heart racing . EKG in ED shows paced rhythm, rate 96. Troponin on presentation 1.076 -> 1.168 -> 1.185 -> 0.910 -> 0.798 ART ACS Risk and Mortality Calculator: 123 points; 8 % Probability of from admission to 6 months HEART Score for Major Cardiac Events: 5 points Risk of MACE of 12-16.6%. CHRISTIAN Risk Score for UA/NSTEMI: 3 points, 13% risk at 14 days of: all-cause mortality, new or recurrent MT, or severe recurrent ischemia requiring urgent revascularization. Lipid panel: Cholesterol 123, LDL 56, HDL 52, triglycerides 74; TSH: 1.74; hemoglobin A1c: 5.8 Echocardiogram negative for any regional wall abnormality. Patient was given Plavix 300 mg p.o. x 1 and aspirin 81 mg p.o. x 1 per teleneuro recommendations. Recommendations: MRI positive for multiple acute embolic infarcts, started on heparin gtt., will be discharged on Eliquis 2.5 mg twice daily, no aspirin or Plavix indicated. Patient presented with CVA, no chest pain elevated troponin likely secondary to demand ischemia in setting of possible CVA. Patient will need outpatient workup with stress test #Chronic congestive diastolic heart failure with preserved ejection fraction, EF 60-70% Mild vascular congestion noted on chest x-ray, patient stable on room air. -Continue home dose Bumex 1 mg p.o. daily -Iron panel shows depleted stores iron 49, Feraheme 510 mg x 1 ordered #Hypertension On metoprolol XL 50 mg bid #Hyperlipidemia Continue atorvastatin #Type 2 DM #Multiple acute embolic infarct #Iron deficiency Management per primary team Thank you for the consult and allowing to participate in the care of the patient. Cardiology will continue to follow. Case discussed with Attending Physician Dr. Jose C Granados MD Internal Medicine PGY-2 Disclaimer: This note was dictated by speech recognition. Minor errors in sports bookmaker may be present due to voice recognition software. Attending Provider Attestation/Addendum I have personally seen and examined the patient separately on the above date of service and discussed the plan of care with the resident. I reviewed the resident Dr. Nash Granados consultation progress note and agree with the resident findings and plan in the note above and have also edited the documentation to reflect my findings and plan. Jose C Diaz M.D. Interventional Cardiology
[2025-07-23 12:00] VITALS: BP 134/73; PULSE 67; PULSE 72; RESP 22; TEMP 36.7; O2SAT 95
--- NOTE | 2025-07-23 13:23 | PC.SS ---
Transport has been scheduled for 03:00 pm today. Patient to [facility] and bedside nurse updated.
--- NOTE | 2025-07-23 14:30 | PC.SS ---
PASSR submitted to [facility] via [employer].
--- NOTE | 2025-07-23 14:37 | PC.NURSE ---
Report given to Bulmaro BAÑUELOS at [facility], fruit or nut picker scheduled for 1500.
== END 2025-07-23 14:57 | disposition skilled nursing facility (03) | DRG 65 ==
LOC: SERX 14:33 → SERHOLD 17:11 → S2NX 07-20 02:29
PROVIDERS: Admitting Provider Internal Medicine; Emergency Provider Emergency Medicine; PCP Internal Medicine; Visit Provider Internal Medicine Cardiovascular Disease
PROC: 5A2204Z Restoration of Cardiac Rhythm, Single (ICD-10-PCS; CPT 93312; principal; 2025-07-22 14:15)
DX: I63.40 Cerebral infarction due to embolism of unspecified cerebral artery (principal); I50.32 Chronic diastolic (congestive) heart failure; R29.810 Facial weakness; I11.0 Hypertensive heart disease with heart failure; E78.5 Hyperlipidemia, unspecified; E11.9 Type 2 diabetes mellitus without complications; R47.1 Dysarthria and anarthria; I35.0 Nonrheumatic aortic (valve) stenosis; I48.0 Paroxysmal atrial fibrillation; I37.1 Nonrheumatic pulmonary valve insufficiency; I05.0 Rheumatic mitral stenosis; I27.20 Pulmonary hypertension, unspecified; E61.1 Iron deficiency; R79.89 Other specified abnormal findings of blood chemistry; Z95.0 Presence of cardiac pacemaker; Z85.038 Personal history of other malignant neoplasm of large intestine; Z90.49 Acquired absence of other specified parts of digestive tract; Z59.71 Insufficient health insurance coverage; Z79.01 Long term (current) use of anticoagulants; Z79.899 Other long term (current) drug therapy
CPT/HCPCS: 36415; 70450; 70496; 70498; 70544; 71045; 80053; 80061; 80307; 81001; 82728; 83036; 83540; 83550; 83735; 83880; 84443; 84484; 85025; 85610; 85730; 92507; 92523; 92610; 93005; 93306; 93312; 93971; 97162; 99152; 99285; A4649; J1644; J2250; J3010; J3475; J3480; J7050; Q0138; Q9967; A9270